=== PATIENT | female | born 1980 | race Caucasian/White ===

== ENCOUNTER 2016-09-05 12:49 | Inpatient (IN) | payer MEDICAID, OTHER ==
[~2016-09-05] VITALS: Ht 165.1 cm; Wt 80.6 kg
[~2016-09-05 12:49] MED LIST: CYCL1TAB29 PO; IBUP800T23 PO; PRED50 PO
[2016-09-05 12:50] VITALS: BP 124/60; PULSE 100; RESP 16; TEMP 98.3; O2SAT 94
[2016-09-05 13:40] VITALS: BP 121/58; PULSE 99; RESP 18; TEMP 98.1; O2SAT 96
--- NOTE | 2016-09-05 15:35 | PD ---
HPI Chief Complaint: Medical Clearance Time Seen by Provider: 15:28 Travel History International Travel<30 days: No Contact w/Intl Traveler<30days: No Traveled to known affect area: No History of Present Illness HPI This patient was examined in the presence of a female nurse. 35-year-old female presents voluntarily for evaluation of depression. For the past few months she has been feeling increasingly depressed, having difficulty with activities of daily living, easily angered. She reports that her her to come for evaluation when he said that he would leave her with the children if she did not seek help. She denies any attempts at suicide in the past but she does say that her left her with the children and she would kill herself. She denies any drug or alcohol use. Denies any medical problems. Initially she went to [facility] today however they performed a urine test and it was positive and so she was sent here because she was outside of their scope of care. She reports that she has an implanted essure device and her last menstrual. Was July 17 through the . She denies any abdominal pain or vaginal bleeding or vaginal discharge. Denies dysuria, flank pain, hematuria. She has no other complaints. [facility] Past Medical History Anxiety: Yes Depression: Yes Diminished Hearing: No Immunizations Current: Yes ?: LMP: 07/2016 Menopausal: No : 1 Para: 1 Past Surgical History Eye Surgery: Yes (1987) Thoracic Surgery: Yes (CHEST WALL) Other Surgery: Yes (pectis excavatum) Social History Alcohol Use: No Tobacco Use: Yes (09/10 PPD) Substance Use: No Allergies-Medications (Allergen,Severity, Reaction): Coded Allergies: Codeine (Verified Allergy, Severe, Hives, 09/05/16) Morphine (Verified Allergy, Severe, Anaphylaxis, 09/05/16) Reported Meds & Prescriptions Reported Meds & Active Scripts Active No Active Prescriptions or Reported Medications Review of Systems Except as stated in HPI: all other systems reviewed are Neg Physical Exam Narrative GENERAL: Well-developed well-nourished female in no acute distress SKIN: Warm and dry. HEAD: Atraumatic. Normocephalic. EYES: Pupils equal and round. No scleral icterus. No injection or drainage. ENT: No nasal bleeding or discharge. Mucous membranes pink and moist. NECK: Trachea midline. No JVD. CARDIOVASCULAR: Regular rate and rhythm. No murmur appreciated. RESPIRATORY: No accessory muscle use. Clear to auscultation. Breath sounds equal bilaterally. GASTROINTESTINAL: Abdomen soft, non-tender, nondistended. Hepatic and splenic margins not palpable. No CVA tenderness. MUSCULOSKELETAL: No obvious deformities. Normal range of motion in the upper and lower extremities. NEUROLOGICAL: Awake and alert. No obvious cranial nerve deficits. Motor grossly within normal limits. Normal speech. PSYCHIATRIC: Depressed mood. Insight and judgment appear intact. Data Data Last Documented VS Vital Signs Date Time Temp Pulse Resp B/P Pulse Ox O2 Delivery O2 Flow Rate FiO2 09/05/16 13:40 98.1 99 18 121/58 96 Room Air Orders Diet Regular Basic (09/05/16 Lunch) Complete Blood Count With Diff (09/05/16 13:43) Comprehensive Metabolic Panel (09/05/16 13:43) Urinalysis - C+S If Indicated (09/05/16 13:43) Drug Screen, Random Urine (09/05/16 13:43) Alcohol (Ethanol) (09/05/16 13:43) Beta Hcg (Quant/Titer) (09/05/16 13:43) Psych Screen (09/05/16 13:43) Diet Regular Basic (09/05/16 Dinner) Labs Laboratory Tests Test 09/05/16 09/05/16 15:36 15:40 White Blood Count 9.9 TH/MM3 Red Blood Count 4.17 MIL/MM3 Hemoglobin 12.4 GM/DL Hematocrit 37.1 % Mean Corpuscular Volume 89.1 FL Mean Corpuscular Hemoglobin 29.7 PG Mean Corpuscular Hemoglobin 33.4 % Concent Red Cell Distribution Width 13.4 % Platelet Count 296 TH/MM3 Mean Platelet Volume 7.9 FL Neutrophils (%) (Auto) 74.4 % Lymphocytes (%) (Auto) 18.8 % Monocytes (%) (Auto) 5.7 % Eosinophils (%) (Auto) 0.8 % Basophils (%) (Auto) 0.3 % Neutrophils # (Auto) 7.4 TH/MM3 Lymphocytes # (Auto) 1.9 TH/MM3 Monocytes # (Auto) 0.6 TH/MM3 Eosinophils # (Auto) 0.1 TH/MM3 Basophils # (Auto) 0.0 TH/MM3 CBC Comment DIFF FINAL Differential Comment Sodium Level 137 MEQ/L Potassium Level 4.0 MEQ/L Chloride Level 103 MEQ/L Carbon Dioxide Level 25.5 MEQ/L Anion Gap 9 MEQ/L Blood Urea Nitrogen 7 MG/DL Creatinine 0.53 MG/DL Estimat Glomerular Filtration 131 ML/MIN Rate Random Glucose 76 MG/DL Calcium Level 8.8 MG/DL Total Bilirubin 0.3 MG/DL Aspartate Amino Transf 8 U/L (AST/SGOT) Alanine Aminotransferase 12 U/L (ALT/SGPT) Alkaline Phosphatase 74 U/L Total Protein 6.8 GM/DL Albumin 2.9 GM/DL Human Chorionic Gonadotropin, 4870 MIU/ML Quant Ethyl Alcohol Level LESS THAN 3 MG/DL Urine Color YELLOW Urine Turbidity HAZY Urine pH 6.0 Urine Specific [place] 1.023 Urine Protein TRACE mg/dL Urine Glucose (UA) NEG mg/dL Urine Ketones 40 mg/dL Urine Occult Blood TRACE Urine Nitrite NEG Urine Bilirubin NEG Urine Urobilinogen 2.0 MG/DL Urine Leukocyte Esterase MOD Urine RBC 7 /hpf Urine WBC 3 /hpf Urine Squamous Epithelial 4 /hpf Cells Urine Mucus MOD /lpf Microscopic Urinalysis Comment CULT NOT INDICATED Urine Opiates Screen NEG Urine Barbiturates Screen NEG Urine Amphetamines Screen NEG Urine Benzodiazepines Screen NEG Urine Cocaine Screen NEG Urine Cannabinoids Screen NEG MDM Medical Decision Making Medical Screen Exam Complete: Yes Emergency Medical Condition: Yes Medical Record Reviewed: Yes Interpretation(s) CBC unremarkable CMP unremarkable Beta-hCG 4870 Urinalysis no bacteria Drug screen negative Alcohol negative Differential Diagnosis Major depressive disorder, depressive disorder not otherwise specified, acute psychosis, substance induced mood disorder, adjustment reaction, generalized anxiety disorder, PTSD Narrative Course 35-year-old female presents with months of increased depression. She presents voluntarily. She had a positive urine drug screen at [facility]. Last menstrual period was July 17 through the . She has no abdominal pain, vaginal bleeding to warrant an emergent pelvic ultrasound. She does have a positive quantitative beta hCG. She was informed and she is encouraged to follow-up with her [facility] to establish care. Mental health screening discussed with the patient. Psychiatric screen ordered. The patient is medically cleared for psychiatric disposition. Scripts No Active Prescriptions or Reported Meds Torin Duarte Sep 05, 2016 15:35
[2016-09-05 16:03] LABS: AUTOMATED NEUTROPHIL # 7.4 TH/MM3 (1.8-7.7); BASOPHIL % 0.3 % (0.0-2.0); EOSINOPHIL # 0.1 TH/MM3 (0-0.4); EOSINOPHIL % 0.8 % (0.0-4.0); HEMATOCRIT 37.1 % (35.0-46.0); HEMO FLAGS DIFF FINAL; LYMPH % 18.8 % (9.0-44.0); LYMPHOCYTE # 1.9 TH/MM3 (1.0-4.8); MEAN CELL VOLUME 89.1 FL (80.0-100.0); MEAN CORPUSCULAR HEMOGLOBIN 29.7 PG (27.0-34.0); MEAN CORPUSCULAR HGB CONC 33.4 % (32.0-36.0); MONO % 5.7 % (0.0-8.0); NEUT % 74.4 % (16.0-70.0); PLATELET COUNT 296 TH/MM3 (150-450); RED BLOOD COUNT 4.17 MIL/MM3 (4.00-5.30); RED CELL DISTRIBUTION WIDTH 13.4 % (11.6-17.2); WHITE BLOOD COUNT 9.9 TH/MM3 (4.0-11.0)
[2016-09-05 16:15] LABS: BLOOD, URINE TRACE (NEG); COMMENT (UR) CULT NOT INDICATED; CULTURE IF INDICATED CULT NOT INDICATED; GLUCOSE,URINE NEG (NEG); KETONE, URINE 40 mg/dL (NEG); MUCUS URINE MOD /lpf (OCC); NITRITE,URINE NEG (NEG); SQUAMOUS EPITHELIAL CELL URINE 4 /hpf (0-5); URINE COLOR YELLOW (YELLW/STRAW)
[2016-09-05 16:20] LABS: AMPHETAMINE, URINE NEG (NEG); BARBITURATES, URINE NEG (NEG); COCAINE, URINE NEG (NEG)
[2016-09-05 16:29] LABS: ANION GAP 9 MEQ/L (5-15)
[2016-09-05 16:46] LABS: ALKALINE PHOSPHATASE 74 U/L (45-117); ALT (GPT) 12 U/L (10-53); AST (GOT) 8 U/L (15-37); BETA HCG QUANT 4870 MIU/ML (0-5); BICARBONATE 25.5 MEQ/L (21.0-32.0); BLOOD UREA NITROGEN 7 MG/DL (7-18); CHLORIDE 103 MEQ/L (98-107); GLOMERULAR FILTRATION RATE 131 ML/MIN (>89); SODIUM (NA) 137 MEQ/L (136-145); TOTAL BILIRUBIN ADULT 0.3 MG/DL (0.2-1.0)
[2016-09-05 18:11] VITALS: BP 128/68; PULSE 92; RESP 18; O2SAT 97
[2016-09-05 22:28] VITALS: BP 121/62; PULSE 92; RESP 18; TEMP 97.5; O2SAT 97
[2016-09-06 02:32] VITALS: BP 103/55; PULSE 78; RESP 18; TEMP 97.1; O2SAT 99
[2016-09-06 06:00] VITALS: BP 126/58; PULSE 98; RESP 18; O2SAT 97
--- NOTE | 2016-09-06 11:07 | PD ---
History of Present Illness Chief Complaint: Medical Clearance Time Seen by Provider: 10:00 Travel History International Travel<30 Days: No Contact w/Intl Traveler<30days: No Known affected area: No Legal Status Legal Status: Voluntary History of Present Illness: History of Present Illness 35-year-old female with history of depression versus adjustment disorder w depressed features presents voluntarily for psychiatric evaluation. She is sent to [facility] from [facility] after a positive test. She reports that for the past several; months and increasing in intensity in the past 2 days she has been experiencing depressed mood, crying episodes, increased sleep , decreased appetite, inability to get up and care for her 2 small children, poor frustration tolerance with episodes of irritability, feeling like she cannot control her emotions. Recent stressors include being evicted from her home 2 days ago, dealing with her 's gambling problem and the of her father in March. As per record patient was seen here in 2009 and she reported at that time that her father had just . She reports that her brought her to [facility] for evaluation when he said that he would leave her and take her children if she did not seek help. She denies any drug or alcohol use and urine toxicology is negative. As per record review she was seen in ED for psychiatric evaluation in 2005 when she alledgedly gave custody of her 2 year old child to her mother. She was evaluated in 2009 for reports of depression after her father . She was sent to [facility] but did not follow up with care. Patient is seen in J pod. Awake, alert, tearful. speech is clear and logical. Mood depressed. No psychosis and no wendy. Denies suicidal ideation but she does say that if her leaves and takes her children she would kill herself. She endorses symptoms of depression as described previously. Patient also reports she was unaware that she was and at this time does niot feel she can take care of another child. She is considering terminating the . PFSH Past Medical History Anxiety: Yes Depression: Yes Diminished Hearing: No Immunizations Current: Yes ?: LMP: 07/2016 Menopausal: No : 3 Para: 3 Past Surgical History Eye Surgery: Yes (1987) Thoracic Surgery: Yes (CHEST WALL) Other Surgery: Yes (pectis excavatum) Psychiatric History Psychiatric History Hx Psychiatric Treatment: PATIENT REPORTS THAT SHE HAS A HISTORY OF DEPRESSION. History of Inpatient Treatment: Yes ([facility] in 2009) Guns or firearms in home: No Social History x 3 years. Currently homeless and staying with family. Has 2 children ages 2 years and 1 year. as per record has another child in custody of her mother. She does not disclose this. 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 Hx Alcohol Use: No Hx Tobacco Use: Yes (09/10 PPD) Hx Substance Use: No Substance Use Type: Alcohol, Nicotine/Cigarettes Other Substances Used: ALCOHOL SOCIALY Hx of Substance Use Treatment: No Family Psychiatric History Father w bipolar Disorder Brother with bipolar disorder Allergies-Medications (Allergen,Severity, Reaction): Coded Allergies: Codeine (Verified Allergy, Severe, Hives, 09/05/16) Morphine (Verified Allergy, Severe, Anaphylaxis, 09/05/16) Reported Meds & Prescriptions Reported Meds & Active Scripts Active No Active Prescriptions or Reported Medications Review of Systems Constitutional: COMPLAINS OF: Change in appetite, DENIES: Diaphoretic episodes , Fatigue, Fever, Weight gain, Weight loss, Chills, Dizziness, Night Sweats Endocrine: DENIES: Abnorml menstrual pattern, Heat/cold intolerance, Polydipsia , Polyuria, Polyphagia Eyes: DENIES: Blurred vision, Diplopia, Eye inflammation, Eye pain, Vision loss , Photosensitivity, Double Vision Ears, nose, mouth, throat: DENIES: Tinnitus, Hearing loss, Vertigo, Nasal discharge, Oral lesions, Throat pain, Hoarseness, Ear Pain, Running Nose, Epistaxis, Sinus Pain, Toothache, Odynophagia Respiratory: DENIES: Apneas, Cough, Snoring, Wheezing, Hemoptysis, Sputum production, Shortness of breath Cardiovascular: DENIES: Chest pain, Palpitations, Syncope, Dyspnea on Exertion , PND, Lower Extremity Edema, Orthopnea, Claudication Gastrointestinal: DENIES: Abdominal pain, Black stools, Bloody stools, Constipation, Diarrhea, Nausea, Vomiting, Difficulty Swallowing, Anorexia Genitourinary: DENIES: Abnormal vaginal bleeding, Dysmenorrhea, Dyspareunia, Sexual dysfunction, Urinary frequency, Urinary incontinence, Urgency, Hematuria , Dysuria, Nocturia, Vaginal discharge Musculoskeletal: DENIES: Joint pain, Muscle aches, Stiffness, Joint Swelling, Back pain, Neck pain Integumentary: DENIES: Abnormal pigmentation, Pruritus, Rash, Nail changes, Breast masses, Breast skin changes, Nipple discharge Hematologic/lymphatic: DENIES: Bruising, Lymphadenopathy Immunologic/allergic: DENIES: Eczema, Urticaria Neurologic: DENIES: Abnormal gait, Headache, Localized weakness, Paresthesias, Seizures, Speech Problems, Tremor, Poor Balance Psychiatric: COMPLAINS OF: Depression, Suicidal Ideation Exam Alert: Yes [place]: Person (ox4) Mood: Depressed Affect: Other (tearful) Speech: Clear, Logical Eye Contact: Normal Memory Intact: Comment (No impairment) Hallucinations: Other (negative) Delusions: No Suicidal: Ideation (reports will kill herself if her takes her children ) Homicidal: Ideation (deneis) Insight/Judgement poor. not impaired MDM Medical Decision Making Medical Record Reviewed: Yes Assessment/Plan 35 year old female under a voluntary basis with symptoms of depression and suicidal ideation. She is currently not in tx. At this time she meets criteria for inpatient psychiatric treatment for further evaluation, initiation of treatment and to maintain her safety. Admitting dx Adjustment disorder with depression versus bipolar disorder with depressed mood versus post depression, untreated. Orders Diet Regular Basic (09/05/16 Lunch) Complete Blood Count With Diff (09/05/16 13:43) Comprehensive Metabolic Panel (09/05/16 13:43) Urinalysis - C+S If Indicated (09/05/16 13:43) Drug Screen, Random Urine (09/05/16 13:43) Alcohol (Ethanol) (09/05/16 13:43) Beta Hcg (Quant/Titer) (09/05/16 13:43) Psych Screen (09/05/16 13:43) Diet Regular Basic (09/05/16 Dinner) Diet Regular Basic (09/06/16 Breakfast) Diet Regular Basic (09/06/16 Lunch) Results Vital Signs Date Time Temp Pulse Resp B/P Pulse Ox O2 Delivery O2 Flow Rate FiO2 09/06/16 06:00 98 18 126/58 97 09/06/16 02:32 97.1 78 18 103/55 99 Room Air 09/05/16 22:28 97.5 92 18 121/62 97 Room Air 09/05/16 18:11 92 18 128/68 97 Room Air 09/05/16 13:40 98.1 99 18 121/58 96 Room Air 09/05/16 12:50 98.3 100 16 124/60 94 Room Air Laboratory Tests Test 09/05/16 09/05/16 15:36 15:40 White Blood Count 9.9 Red Blood Count 4.17 Hemoglobin 12.4 Hematocrit 37.1 Mean Corpuscular Volume 89.1 Mean Corpuscular Hemoglobin 29.7 Mean Corpuscular Hemoglobin 33.4 Concent Red Cell Distribution Width 13.4 Platelet Count 296 Mean Platelet Volume 7.9 Neutrophils (%) (Auto) 74.4 Lymphocytes (%) (Auto) 18.8 Monocytes (%) (Auto) 5.7 Eosinophils (%) (Auto) 0.8 Basophils (%) (Auto) 0.3 Neutrophils # (Auto) 7.4 Lymphocytes # (Auto) 1.9 Monocytes # (Auto) 0.6 Eosinophils # (Auto) 0.1 Basophils # (Auto) 0.0 CBC Comment DIFF FINAL Differential Comment Sodium Level 137 Potassium Level 4.0 Chloride Level 103 Carbon Dioxide Level 25.5 Anion Gap 9 Blood Urea Nitrogen 7 Creatinine 0.53 Estimat Glomerular Filtration 131 Rate Random Glucose 76 Calcium Level 8.8 Total Bilirubin 0.3 Aspartate Amino Transf 8 (AST/SGOT) Alanine Aminotransferase 12 (ALT/SGPT) Alkaline Phosphatase 74 Total Protein 6.8 Albumin 2.9 Human Chorionic Gonadotropin, 4870 Quant Ethyl Alcohol Level LESS THAN 3 Urine Color YELLOW Urine Turbidity HAZY Urine pH 6.0 Urine Specific [place] 1.023 Urine Protein TRACE Urine Glucose (UA) NEG Urine Ketones 40 Urine Occult Blood TRACE Urine Nitrite NEG Urine Bilirubin NEG Urine Urobilinogen 2.0 Urine Leukocyte Esterase MOD Urine RBC 7 Urine WBC 3 Urine Squamous Epithelial 4 Cells Urine Mucus MOD Microscopic Urinalysis Comment CULT NOT INDICATED Urine Opiates Screen NEG Urine Barbiturates Screen NEG Urine Amphetamines Screen NEG Urine Benzodiazepines Screen NEG Urine Cocaine Screen NEG Urine Cannabinoids Screen NEG Diagnosis Primary Impression: Adjustment disorder Admitting Information Admitting Physician Requests: Admit (Williendo) Prescriptions No Active Prescriptions or Reported Meds Problem Qualifiers Primary Impression: Adjustment disorder Qualified Code: F43.21 - Adjustment disorder with depressed mood Monika Maria Sep 06, 2016 11:07
[2016-09-06] MEDS ORDERED: MAGNESIUM HYDROXIDE SUSP 30 ML CUP PO PRN (11:15)
[2016-09-06] MEDS ORDERED: ACETAMINOPHEN 325 MG TAB PO PRN (11:15)
[2016-09-06] MEDS ORDERED: ALUMINUM/MAGNESIUM/SIMETH 30 ML CUP PO PRN (11:15)
[2016-09-06 11:54] VITALS: BP 130/68; PULSE 78; RESP 18; O2SAT 96
[2016-09-06 11:55] VITALS: BP 130/68; PULSE 78; RESP 18; O2SAT 96
[2016-09-06 12:44] VITALS: BP 123/67; PULSE 83; RESP 18; TEMP 98.7
[2016-09-06 18:08] VITALS: BP 117/64; PULSE 90; RESP 14; TEMP 98.1; O2SAT 98
[2016-09-07 05:16] VITALS: BP 98/61; PULSE 74; RESP 18; TEMP 98; O2SAT 96
[2016-09-07 07:55] LABS: ANION GAP 10 MEQ/L (5-15); BICARBONATE 24.6 MEQ/L (21.0-32.0); BLOOD UREA NITROGEN 7 MG/DL (7-18); CHLORIDE 103 MEQ/L (98-107); GLOMERULAR FILTRATION RATE 125 ML/MIN (>89); POTASSIUM 4.6 MEQ/L (3.5-5.1); SODIUM (NA) 138 MEQ/L (136-145)
[2016-09-07 07:58] LABS: HDL CHOLESTEROL 49.3 MG/DL (40.0-60.0); LDL CHOLESTEROL 141 MG/DL (0-99)
--- NOTE | 2016-09-07 09:42 | HHI.HP ---
Provisional Diagnosis Admission Date Sep 06, 2016 at 11:14 [place] I. Major depressive disorder recurrent severe without psychosis f 33.2, , LMP 07/2016 Certification of Person's Competence To Provide Express and Informed Consent I have personally examined Bruno Wu , a person being served at [facility] on, Sep 07, 2016 09:23. Express and informed consent means consent voluntarily given in writing, by a competent person, after sufficient explanation and disclosure of the subject matter involved to enable the person to make a knowing and willful decision without any element of force, fraud, deceit, duress, or other form of constraint or coercion. This person is 18 years of age or older, is not now known to be incompetent to consent to treatment with a guardian advocate, and does not have a health care surrogate or proxy currently making medical treatment decisions. I have found this person to be one of the following: [x] Competent to provide express and informed consent, as defined above, for voluntary admission to this facility and is competent to provide express and informed consent for treatment. He/she has the consistent capacity to make well reasoned, willful, and knowing decisions concerning his or her medical or mental health treatment. The person fully and consistently understands the purpose of the admission for examination/placement and is fully capable of personally exercising all rights assured under [place] Incompetent to provide express and informed consent to voluntary admission, and this is incompetent to provide express and informed consent to treatment. The person must be transferred to involuntary status and a petition for a guardian advocate filed with the Circuit Court. [] Refusing to provide express and informed consent to voluntary admission but is competent to provide express and informed consent for treatment. The person must be discharged or transferred to involuntary status. Form shall be completed within 24 hours of a person's arrival at the receiving facility and filed in the clinical record of each person: 1. Admitted on a voluntary basis 2. Permitted to provide express and informed consent to his/her own treatment 3. Allowed to transfer from involuntary to voluntary status 4. Prior to permitting a person to consent to his or her own treatment after having been previously found incompetent to consent to treatment. History of Present Illness Capacity: Has Capacity HPI Patient is a 35-year-old white female comes to the emergency department voluntarily with 2-3 month history of increased depression, with marked tearfulness, depressed mood, productive sleep marked decreased energy. Decreased appetite, decreased concentration and attention, decreased coping skills, with some social isolation, she denies voices or visions with this, denies self-medication, is vague about suicidality relating it to the possibility of her leaving in taking her 2-year-old and 1-year-old children. Of interest the patient is also with her last menstrual period being 07/2016. There is also significant stress in the fact that she feels her is a compulsive gambler, which he denies, though he plays poker, this is led to the maven foreclosures on at least 3-4 prior homes and that she was given an eviction notice 2 days before crispness in the most recent dwelling. She has been staying with her uncle with her children until this episode and now and 2 small children are staying with 's mother She feels she is unable to carry this and is considering a therapeutic termination of the . Patient has a history of depression was hospitalized briefly in 2009 around the time of the of her biological father. She does deny any prior alcohol or drug use. Denies any prior suicide attempts. 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 She does acknowledge having a 12-year-old son is living with the maternal grandmother, she has a 2-year-old wonderful child by this gentleman who are now staying with his mother. Patient denies any physical or sexual abuse. She does acknowledge mental health problems in the family stating her father brother. At the present time patient does meet criteria for involuntary inpatient psychiatric hospitalization. I feel there is a high risk for suicidal behaviors or attempts. There needs to be significant counseling with her and with her . We will have CABLE BRAIDER consult related to the . Will start the patient on Zoloft 25 mg daily with intent to increase it after a few days if she tolerates it. Will add Atarax for anxiety. Benadryl for sleep. Will refrain from any substances of abuse. Review of Systems Constitutional: DENIES: Diaphoretic episodes, Fatigue, Fever, Weight gain, Weight loss, Chills, Dizziness, Change in appetite, Night Sweats Endocrine: DENIES: Abnorml menstrual pattern, Heat/cold intolerance, Polydipsia , Polyuria, Polyphagia Eyes: DENIES: Blurred vision, Diplopia, Eye inflammation, Eye pain, Vision loss , Photosensitivity, Double Vision Ears, nose, mouth, throat: DENIES: Tinnitus, Hearing loss, Vertigo, Nasal discharge, Oral lesions, Throat pain, Hoarseness, Ear Pain, Running Nose, Epistaxis, Sinus Pain, Toothache, Odynophagia Respiratory: DENIES: Apneas, Cough, Snoring, Wheezing, Hemoptysis, Sputum production, Shortness of breath Cardiovascular: DENIES: Chest pain, Palpitations, Syncope, Dyspnea on Exertion , PND, Lower Extremity Edema, Orthopnea, Claudication Gastrointestinal: DENIES: Abdominal pain, Black stools, Bloody stools, Constipation, Diarrhea, Nausea, Vomiting, Difficulty Swallowing, Anorexia Genitourinary: DENIES: Abnormal vaginal bleeding, Dysmenorrhea, Dyspareunia, Sexual dysfunction, Urinary frequency, Urinary incontinence, Urgency, Hematuria , Dysuria, Nocturia, Vaginal discharge Musculoskeletal: DENIES: Joint pain, Muscle aches, Stiffness, Joint Swelling, Back pain, Neck pain Integumentary: DENIES: Abnormal pigmentation, Pruritus, Rash, Nail changes, Breast masses, Breast skin changes, Nipple discharge Hematologic/lymphatic: DENIES: Bruising, Lymphadenopathy Immunologic/allergic: DENIES: Eczema, Urticaria Neurologic: DENIES: Abnormal gait, Headache, Localized weakness, Paresthesias, Seizures, Speech Problems, Tremor, Poor Balance Psychiatric: COMPLAINS OF: Depression, Suicidal Ideation (vague) Other Patient early Past Psych History Psychological trauma history Patient denies any physical or sexual abuse Violence risk - others (6 mos) Very low Violence risk - self (6 mos) Vague suicidal ideation that may be increased if leaves her and takes the 2 young children Substance Abuse History Drugs/Alcohol past 12 months Denies Past Family Social History Coded Allergies: Codeine (Verified Allergy, Severe, Hives, 09/05/16) Morphine (Verified Allergy, Severe, Anaphylaxis, 09/05/16) Past Medical History None except for pregnancies Discontinued Scripts Prednisone 50 Mg Tab50 Mg PO DAILY #3 TAB Ref 0 START 08/14/16 Prov:Mona Alicea 08/13/16 Cyclobenzaprine (Flexeril)10 Mg Tab10 Mg PO TID 10 Days Ref 0 Prov:Mona Alicea 08/13/16 Ibuprofen 800 Mg Prh370 Mg PO TID PRN (PAIN SCALE 1 TO 10) 10 Days Ref 0 Prov:Mona Alicea 08/13/16 Current Medications Medications (Trade) Dose Ordered Sig/Mindy Route Start Time Stop Time Status Last Admin (Tylenol) 650 mg Q4H PRN PO 09/06/16 11:15 (Milk Of Magnesia Liq) 30 ml DAILY PRN PO 09/06/16 11:15 (Mag-Al Plus Susp Liq) 30 ml Q6H PRN PO 09/06/16 11:15 Family History Patient's father or brother bipolar Social History Patient with second who is a compulsive gambler and infrequent marijuana user Patient's Strengths (min. 2) Patient verbal cooperative irritable access healthcare Physical Exam Patient seen screened in ED exam reviewed and agreed with vital signs blood pressure 90/61 pulse 74 respirations 18 Vital Signs Vital Signs Date Time Temp Pulse Resp B/P Pulse Ox O2 Delivery O2 Flow Rate FiO2 09/07/16 05:16 98.0 74 18 98/61 96 09/06/16 11:55 Room Air Lab Results HCG quantitative 4870 Mental Status Examination Alert oriented tearful depressed sad white female appears stated age long brown hair. Poor eye contact. Appearance Clean neatly tearful Speech: Unremarkable, Other (tearful) Orientation: x3 Memory: Unremarkable Thought Process: Logical, Organized Thought Content: Unremarkable Language Ecuad[place] Fund of Knowledge Good Hallucination Type: None Attention and Concentration: Other (fair) Suicidal Ideation: Yes (vague somewhat dependent upon situation between her and his care of 2 young children) Previous Suicide Attempts: No Homicidal Ideation: No Previous Homicide Attempts: No Insight: Fair Judgement: WNL Affect: Other (decreased range and intensity) Mood: Sad (markedly depressed and dysphoric) Motor Activity: Normal gait Assessment & Plan Problem List: (1) ICD Code: Z33.1 (2) Major depressive disorder, recurrent severe without psychotic features ICD Code: F33.2 Assessment & Plan Estimated LOS: 3-5 days patient severely depressed, vague suicidal ideation somewhat dependent upon blood sugar with in his care of the 2 small children. Was started on Zoloft 25 mg daily, will have will be consulted with us related to patient's consideration of termination of Discharge Planning To be determined Request Surrog/Guard Advoc?: No Problem Qualifiers (1) : Qualified Code: Z33.1 - , unspecified gestational age Rolo Lamar MD Sep 07, 2016 09:42
[2016-09-07] MEDS: SERTRALINE HCL 50 MG TAB PO SCH (11:57)
[2016-09-07] MEDS: MULTIVITAMIN TAB PO SCH (11:57)
[2016-09-07 17:33] LABS: HEMOGLOBIN A1a 0.9 %; HEMOGLOBIN A1b 1.4 %; HEMOGLOBIN Ao 86.8 %; HEMOGLOBIN LA1C 1.7 %; HEMOGLOBIN P3 3.2 %
[2016-09-07 19:24] VITALS: BP 110/55; PULSE 82; RESP 18; TEMP 98.1; O2SAT 99
[2016-09-08 06:06] VITALS: BP 108/55; PULSE 77; RESP 18; TEMP 97.8; O2SAT 95
[2016-09-08] MEDS: MULTIVITAMIN TAB PO SCH (09:31)
[2016-09-08] MEDS: SERTRALINE HCL 50 MG TAB PO SCH (09:32)
--- NOTE | 2016-09-08 13:51 | HHI.PYPN ---
Subjective Remarks Patient seen and examined with nursing staff. Chart reviewed. Case discussed with nursing staff. On my examination today, patient reports that she remains depressed. She says that this episode of depression was qualitatively different from previous episodes because she "felt stuck" and had trouble "dealing with the day." Sleep is okay but appetite remains poor. Denies any SI "now." Denies side effects from medications. We do discuss the reproductive risks of patient's sertraline, and the patient notes that her plan is to terminate this . Review of Systems Other No physical complaints today. Objective Alert: Yes [place]: Person (O x 3) Mood: Depressed Affect: Other (remains tearful at times) Memory Intact: Comment (intact on clinical exam) Hallucinations: Other (no AVH) Delusions: No Delusion Type: Other (no delusional material) Suicidal: Ideation (denies suicidal ideation) Homicidal: Ideation (no homicidal ideation) Insight/Judgement Fair Remarks Thought process linear. Speech within normal limits for rate, tone and volume. No motoric abnormalities noted. Labs Labs reviewed. Vitals/IOs Vital Signs Date Time Temp Pulse Resp B/P Pulse Ox O2 Delivery O2 Flow Rate FiO2 09/08/16 06:06 97.8 77 18 108/55 95 09/06/16 11:55 Room Air Assessment & Plan Problem List: (1) Major depressive disorder, recurrent severe without psychotic features ICD Code: F33.2 (2) ICD Code: Z33.1 Assessment & Plan Continue Zoloft as ordered with plans to titrate. ICE HOCKEY COACH consultation has been ordered and is pending. Continue other medications and care as ordered. Justification for Cont. Inpt. Monitoring for safety. Medication adjustments. Discharge Planning Per Dr. Lamar Request HC Surrog/Guard Advoc?: No Problem Qualifiers (1) : Qualified Code: Z33.1 - , unspecified gestational age Izaiah Candelaria MD Sep 08, 2016 13:51
[2016-09-08 18:00] VITALS: BP 105/67; PULSE 8; RESP 18; TEMP 97.7; O2SAT 96
[2016-09-09 06:04] VITALS: BP 101/57; PULSE 75; RESP 19; TEMP 97.3
[2016-09-09] MEDS: MULTIVITAMIN TAB PO SCH (08:45)
[2016-09-09] MEDS: SERTRALINE HCL 50 MG TAB PO SCH (08:45)
--- NOTE | 2016-09-09 14:07 | HHI.PYPN ---
Subjective Remarks Patient seen and examined with nursing staff. Chart reviewed. Case discussed with nursing staff who reports patient continues to have a somewhat flat affect but is cooperative and in good behavioral control. On my examination today, the patient reports that she feels about the same. Mood remains low. She says that she would like to start some sort of psychotherapeutic counseling on discharge. She denies any SI. She complains of poor sleep and we discussed sleep hygiene in some detail. Patient also has Benadryl available as needed for insomnia, and I invited her to make use of this. She denies side effects from medications. She is agreeable to titrating her Zoloft today. Review of Systems Other No reported physical complaints. Objective Alert: Yes [place]: Person (once again O x 3) Mood: Depressed Affect: Restricted Memory Intact: Comment (intact) Hallucinations: Other (none) Delusions: No Delusion Type: Other (no delusions) Suicidal: Ideation (denies SI) Homicidal: Ideation (no HI) Insight/Judgement Fair Remarks Thought process linear. Speech within normal limits. No abnormal motor movements noted. Labs Labs reviewed. No new labs. Vitals/IOs Vital Signs Date Time Temp Pulse Resp B/P Pulse Ox O2 Delivery O2 Flow Rate FiO2 09/09/16 06:04 97.3 75 19 101/57 09/08/16 18:00 96 09/06/16 11:55 Room Air Assessment & Plan Problem List: (1) Major depressive disorder, recurrent severe without psychotic features ICD Code: F33.2 (2) ICD Code: Z33.1 Assessment & Plan Titrate Zoloft to target low mood. Benadryl available as needed for sleep. Awaiting AIR ROUTE CONTROLLER consultation, and I have asked the nurse to call about this. Continue other medications and care as ordered. Justification for Cont. Inpt. Monitoring for safety. Medication adjustments and process. Discharge Planning Pending psychiatric stabilization Request HC Surrog/Guard Advoc?: No Problem Qualifiers (1) : Qualified Code: Z33.1 - , unspecified gestational age Izaiah Candelaria MD Sep 09, 2016 14:07
[2016-09-09 18:00] VITALS: BP 134/71; PULSE 80; RESP 18; TEMP 98.7; O2SAT 96
[2016-09-09] MEDS: diphenhydrAMINE HCL 50 MG CAP PO PRN (23:16)
[2016-09-10 05:49] VITALS: BP 102/49; PULSE 81; RESP 16; TEMP 97.4; O2SAT 97
[2016-09-10] MEDS: SERTRALINE HCL 50 MG TAB PO SCH (09:16)
[2016-09-10] MEDS: MULTIVITAMIN TAB PO SCH (09:16)
--- NOTE | 2016-09-10 16:09 | HHI.PYPN ---
Subjective Remarks Patient seen in her room and floor staff, patient calmer today than 3 days ago. She states she said good conversations with her . OB consultation is not yet been done. I did reconsult again today. Patient does denies suicidality at this time for now continue treatment no change await OB consultation Review of Systems Except as stated in HPI: all other systems reviewed are Neg Objective Alert: Yes [place]: Person (once again O x 3) Mood: Depressed Affect: Restricted Memory Intact: Comment (intact) Hallucinations: Other (none) Delusions: No Delusion Type: Other (no delusions) Suicidal: Ideation (denies SI) Homicidal: Ideation (no HI) Insight/Judgement Poor to fair Vitals/IOs Vital Signs Date Time Temp Pulse Resp B/P Pulse Ox O2 Delivery O2 Flow Rate FiO2 09/10/16 05:49 97.4 81 16 102/49 97 09/06/16 11:55 Room Air Assessment & Plan Problem List: (1) Major depressive disorder, recurrent severe without psychotic features ICD Code: F33.2 (2) ICD Code: Z33.1 Assessment & Plan Estimated LOS: days patient continues depressed but somewhat improved, continues to awake consult by OB Justification for Cont. Inpt. At this time patient would decompensated placed a lower level of care Discharge Planning To be determined Request HC Surrog/Guard Advoc?: No Problem Qualifiers (1) : Qualified Code: Z33.1 - , unspecified gestational age Rolo Lamar MD Sep 10, 2016 16:09
--- NOTE | 2016-09-10 16:38 | PD.CONS ---
History & Physical H&P This patient is a 35-year-old 4 para 3003 her last normal menstrual period was August 16 through the 2015 presently admitted to the psych unit with a history of depression. [employer] consult requested secondary to a positive test Patient presently has no complaints no pain no spotting no discharge odors or itching her [employer] doctor is Dr. Moya and the patient desires a termination of this it was discussed that she should have the termination as soon as possible if that is her wish, to prevent complications of a second trimester. She is allergic to codeine and morphine no major medical problems history of depression Her cycles are regular every 29 days and she bleeds for about 7 days OB history normal spontaneous vaginal delivery 3 uncomplicated Social history smokes a half pack of cigarettes per day no drugs or alcohol No previous surgery Family history is noncontributory Vital signs her blood pressures 102/49 pulse 81 respiration 16 temperature is 97.4 Physical exam is deferred to her admission Pelvic exam is deferred to ultrasound Laboratory data hemoglobin is 12.4 beta hCGs 4870, liver function studies are normal, Assessment amenorrhea with a positive test beta hCG of 4870 consistent with about 4 weeks gestation based on her dates Patient desires a termination Plan: Recommend that the patient make an appointment with her [employer] doctor Dr. Moya upon being discharged. At that time ultrasound can be done. As an ultrasound at this stage is too early to demonstrate intrauterine Her [employer] can either perform the procedure herself or refer her to someone that does terminations Recommended it be done early in the gestation Lulu Milner MD Sep 10, 2016 16:38
[2016-09-10] MEDS: hydrOXYzine HCL 50 MG TAB PO PRN (21:30)
[2016-09-10 21:31] VITALS: BP 123/72; PULSE 81; RESP 17; TEMP 97.8; O2SAT 97
[2016-09-11 06:09] VITALS: BP 106/61; PULSE 87; RESP 16; TEMP 97.7
[2016-09-11] MEDS: MULTIVITAMIN TAB PO SCH (08:18)
[2016-09-11] MEDS: SERTRALINE HCL 50 MG TAB PO SCH (08:18)
--- NOTE | 2016-09-11 08:50 | HHI.PYPN ---
Subjective Remarks Patient seen in [place] with nurse Cat, patient states she had a difficult conversation with her yesterday, there still limits of foreclosure that is happening soon, patient states she hasn't been talking with his mother possibly temporary relocation. Patient states she does not get along well with her [id number]. This conversation patient became more depressed tearful and crying. States she still is markedly depressed though she does deny suicidal intent or plan. She states she has no support group except essentially her mother who has custody of patient's 12-year-old son. Patient states neither she nor her 12-year-old son and contact with this boy's father. Patient compliant medications. At this time continue medications no change continue treatment Review of Systems Except as stated in HPI: all other systems reviewed are Neg Objective Alert: Yes [place]: Person (once again O x 3) Mood: Depressed Affect: Labile (tearful), Restricted Memory Intact: Comment (intact) Hallucinations: Other (none) Delusions: No Delusion Type: Other (no delusions) Suicidal: Ideation (denies SI) Homicidal: Ideation (no HI) Insight/Judgement Poor to fair Vitals/IOs Vital Signs Date Time Temp Pulse Resp B/P Pulse Ox O2 Delivery O2 Flow Rate FiO2 09/11/16 06:09 97.7 87 16 106/61 09/10/16 21:31 97 Assessment & Plan Problem List: (1) Major depressive disorder, recurrent severe without psychotic features ICD Code: F33.2 (2) ICD Code: Z33.1 Assessment & Plan Estimated LOS: days patient continues depressed and tearful, appears to be significant stress also with her that is multifactorial Justification for Cont. Inpt. At this time there is distinct possibility of decompensation patient was released to a lower level of care Discharge Planning To be determined Request HC Surrog/Guard Advoc?: No Problem Qualifiers (1) : Qualified Code: Z33.1 - , unspecified gestational age Rolo Lamar MD Sep 11, 2016 08:50
[2016-09-11 20:00] VITALS: BP 111/78; PULSE 75; RESP 18; TEMP 98.4
[2016-09-11] MEDS: hydrOXYzine HCL 50 MG TAB PO PRN (21:28)
[2016-09-12 05:52] VITALS: BP 114/54; PULSE 84; RESP 16; TEMP 98.4; O2SAT 98
[2016-09-12] MEDS: MULTIVITAMIN TAB PO SCH (09:17)
[2016-09-12] MEDS: SERTRALINE HCL 50 MG TAB PO SCH (09:17)
--- NOTE | 2016-09-12 10:46 | HHI.PYPN ---
Subjective Remarks Patient seen in [place] with floor staff, patient more depressed today tearful crying hopeless with vague suicidal ideation. It appears patient had a phone conversation with her . He is now staying with his mother and the 2 small children. He also told her that he is filing for divorce. It appears she is not welcome in her [id number]-[id number]-yne's house. This essentially leaves the patient homeless at this time. She did state her mother is quite supportive will be returning to town this coming Saturday 09/16 and appears to be able to help him find lodging on Sunday 09/17. With this of the patient remains quite depressed volatile some hopelessness and helplessness. I feel that she does be criteria for continued stay at this time due to the vulnerability and her depression Review of Systems Except as stated in HPI: all other systems reviewed are Neg Objective Alert: Yes [place]: Person (once again O x 3) Mood: Depressed Affect: Labile, Restricted Memory Intact: Comment (intact) Hallucinations: Other (none) Delusions: No Delusion Type: Other (no delusions) Suicidal: Ideation (vaguely acknowledges today) Homicidal: Ideation (no HI) Insight/Judgement Poor Vitals/IOs Vital Signs Date Time Temp Pulse Resp B/P Pulse Ox O2 Delivery O2 Flow Rate FiO2 09/12/16 05:52 98.4 84 16 114/54 98 Assessment & Plan Problem List: (1) Major depressive disorder, recurrent severe without psychotic features ICD Code: F33.2 (2) ICD Code: Z33.1 Assessment & Plan Estimated LOS: days patient continues depressed, with increased symptoms today tearful hopeless vague suicidal ideation. Justification for Cont. Inpt. At this time the patient is at significant risk for decompensation is discharged to a lower level of care Discharge Planning To be determined Request HC Surrog/Guard Advoc?: No Problem Qualifiers (1) : Qualified Code: Z33.1 - , unspecified gestational age Rolo Lamar MD Sep 12, 2016 10:46
[2016-09-12 18:45] VITALS: BP 121/63; PULSE 85; RESP 17; TEMP 98.8; O2SAT 98
[2016-09-12] MEDS: hydrOXYzine HCL 50 MG TAB PO PRN (21:43)
[2016-09-13 06:05] VITALS: BP 108/65; PULSE 78; RESP 16; TEMP 98.3; O2SAT 96
[2016-09-13] MEDS: SERTRALINE HCL 50 MG TAB PO SCH (09:37)
[2016-09-13] MEDS: MULTIVITAMIN TAB PO SCH (09:37)
--- NOTE | 2016-09-13 10:10 | HHI.PYPN ---
Subjective Remarks Patient seen in [place] floor staff, mood somewhat improved since yesterday affect is calm and appropriate, she is better eye contact. Patient states she did talk with her last night it appears the divorce is going through they have agreed to share custody of the children which pleases her. She is still planning on going with her mother on Saturday for now continue treatment Review of Systems Except as stated in HPI: all other systems reviewed are Neg Objective Alert: Yes [place]: Person (once again O x 3) Mood: Depressed Affect: Labile, Restricted Memory Intact: Comment (intact) Hallucinations: Other (none) Delusions: No Delusion Type: Other (no delusions) Suicidal: Ideation (vaguely acknowledges today) Homicidal: Ideation (no HI) Insight/Judgement Poor to fair Vitals/IOs Vital Signs Date Time Temp Pulse Resp B/P Pulse Ox O2 Delivery O2 Flow Rate FiO2 09/13/16 06:05 98.3 78 16 108/65 96 Assessment & Plan Problem List: (1) Major depressive disorder, recurrent severe without psychotic features ICD Code: F33.2 (2) ICD Code: Z33.1 Assessment & Plan Estimated LOS: days patient continues depressed sad [place], though slightly improved from yesterday. Compliant medications. For now continue treatment Justification for Cont. Inpt. At this time patient would decompensated if placed in the lower level of care Discharge Planning To be determined Request HC Surrog/Guard Advoc?: No Problem Qualifiers (1) : Qualified Code: Z33.1 - , unspecified gestational age Rolo Lamar MD Sep 13, 2016 10:10
[2016-09-13 19:35] VITALS: BP 131/59; PULSE 80; RESP 17; TEMP 98.3; O2SAT 97
[2016-09-13] MEDS: hydrOXYzine HCL 50 MG TAB PO PRN (21:44)
[2016-09-14 06:02] VITALS: BP 104/52; PULSE 80; RESP 16; TEMP 98; O2SAT 96
--- NOTE | 2016-09-14 09:24 | HHI.PYPN ---
Subjective Remarks Patient seen in day room with nurse Cat, chart review, patient continues depressed sad though her affect is calm somewhat. She has had no further claudication with her . Though it appears a divorce is being initiated by her . Patient's mother is on a cruise will be back Saturday, will meet with them Saturday and consider discharge at that time. Patient denies suicidality at this time Review of Systems Except as stated in HPI: all other systems reviewed are Neg Objective Alert: Yes [place]: Person (once again O x 3) Mood: Depressed Affect: Labile, Restricted Memory Intact: Comment (intact) Hallucinations: Other (none) Delusions: No Delusion Type: Other (no delusions) Suicidal: Ideation (denies today) Homicidal: Ideation (no HI) Insight/Judgement Poor Vitals/IOs Vital Signs Date Time Temp Pulse Resp B/P Pulse Ox O2 Delivery O2 Flow Rate FiO2 09/14/16 06:02 98.0 80 16 104/52 96 Assessment & Plan Problem List: (1) Major depressive disorder, recurrent severe without psychotic features ICD Code: F33.2 (2) ICD Code: Z33.1 Assessment & Plan Estimated LOS: days patient continues depressed and sad, though somewhat improved. Compliant medications. About treatment Justification for Cont. Inpt. At this time patient would significantly decompensate if placed in the lower level of care Discharge Planning To be determined Request HC Surrog/Guard Advoc?: No Problem Qualifiers (1) : Qualified Code: Z33.1 - , unspecified gestational age Rolo Lamar MD Sep 14, 2016 09:24
[2016-09-14] MEDS: SERTRALINE HCL 50 MG TAB PO SCH (09:31)
[2016-09-14] MEDS: MULTIVITAMIN TAB PO SCH (09:31)
[2016-09-14 18:50] VITALS: BP 115/65; PULSE 77; RESP 18; TEMP 98.1; O2SAT 96
[2016-09-15 05:53] VITALS: BP 104/59; PULSE 81; RESP 16; TEMP 97.9
[2016-09-15] MEDS: MULTIVITAMIN TAB PO SCH (09:23)
[2016-09-15] MEDS: SERTRALINE HCL 50 MG TAB PO SCH (09:23)
[2016-09-15 19:37] VITALS: BP 114/58; PULSE 85; RESP 16; TEMP 98.8; O2SAT 97
--- NOTE | 2016-09-15 21:20 | HHI.PYPN ---
Subjective Remarks Pt seen and discussed with staff. She reports that depression persists but is improving. No medication side effects. No behavioral problems. She denies SI/HI. Objective Alert: Yes [place]: Person (once again O x 3) Mood: Depressed Affect: Restricted Memory Intact: Comment (intact) Hallucinations: Other (none) Delusions: No Delusion Type: Other (no delusions) Suicidal: Ideation (denies today) Homicidal: Ideation (no HI) Insight/Judgement limited Vitals/IOs Vital Signs Date Time Temp Pulse Resp B/P Pulse Ox O2 Delivery O2 Flow Rate FiO2 09/15/16 19:37 98.8 85 16 114/58 97 Assessment & Plan Problem List: (1) Major depressive disorder, recurrent severe without psychotic features ICD Code: F33.2 (2) ICD Code: Z33.1 Assessment & Plan Continue current tx plan. Estimated LOS: days Justification for Cont. Inpt. monitoring medications and for safety, risk of decompensation Request HC Surrog/Guard Advoc?: No Problem Qualifiers (1) : Qualified Code: Z33.1 - , unspecified gestational age Alberta Bowser MD Sep 15, 2016 21:20
[2016-09-15] MEDS: hydrOXYzine HCL 50 MG TAB PO PRN (22:06)
[2016-09-16 05:45] VITALS: BP 100/60; PULSE 88; RESP 18; TEMP 98.4
[2016-09-16] MEDS: SERTRALINE HCL 50 MG TAB PO SCH (09:00)
[2016-09-16] MEDS: MULTIVITAMIN TAB PO SCH (09:00)
[2016-09-16] MEDS: hydrOXYzine HCL 50 MG TAB PO PRN (13:08)
--- NOTE | 2016-09-16 18:00 | HHI.PYPN ---
Subjective Remarks Pt seen and discussed with staff. Pt reports that she has been irritated by a peer who's behavior she finds annoying so she has been spending most of day in her room but did go out into milieu some today. She remains depressed but reports that she is coping better. No SI/HI. She reports sleep is good. No medication side effects. Objective Alert: Yes [place]: Person (once again O x 3) Mood: Depressed Affect: Restricted Memory Intact: Comment (intact) Hallucinations: Other (none) Delusions: No Delusion Type: Other (no delusions) Suicidal: Ideation (denies today) Homicidal: Ideation (no HI) Insight/Judgement fair Vitals/IOs Vital Signs Date Time Temp Pulse Resp B/P Pulse Ox O2 Delivery O2 Flow Rate FiO2 09/16/16 05:45 98.4 88 18 100/60 09/15/16 19:37 97 Assessment & Plan Problem List: (1) Major depressive disorder, recurrent severe without psychotic features ICD Code: F33.2 (2) ICD Code: Z33.1 Assessment & Plan Continue current tx plan. Family meeting tomorrow with treatment team. Estimated LOS: days Justification for Cont. Inpt. risk of decompensating Request HC Surrog/Guard Advoc?: No Problem Qualifiers (1) : Qualified Code: Z33.1 - , unspecified gestational age Alberta Bowser MD Sep 16, 2016 18:00
[2016-09-16 19:34] VITALS: BP 124/68; PULSE 85; RESP 18; TEMP 97.7; O2SAT 98
[2016-09-16] MEDS: diphenhydrAMINE HCL 50 MG CAP PO PRN (21:55)
[2016-09-17 05:00] VITALS: BP 105/65; PULSE 80; RESP 16; TEMP 97.6
[2016-09-17] MEDS: SERTRALINE HCL 50 MG TAB PO SCH (08:44)
[2016-09-17] MEDS: MULTIVITAMIN TAB PO SCH (08:44)
--- NOTE | 2016-09-17 12:59 | HHI.PYPN ---
Subjective Remarks Patient seen in treatment team patient's mother. Prior to patient coming in it appears mother invited patient's and [id number] to the session. Patient's [id number] appeared somewhat angry irritable coming in to the conference room. I felt this was an inappropriate venue for them to start discussing marital issues considering the patient's fragile condition. I asked the and his mother to leave the room they did leave the room albeit fairly put out upset attitude. Patient was then brought into the room and these treatment team continued with the patient and the patient's mother. Patient's mother shared with us the fact that patient's biological father was a paranoid schizophrenic. That her brother has schizoaffective disorder bipolar disorder. And that he had been a patient at this hospital also. Mother also stated that while the patient was in the [place] as a late teen young adult and station [facility] the some change in her behaviors it became apparent on returned to the [place] including marked increased paranoia and vigilance. Mother states is been episodes of this vigilance and paranoia since then. Mother also states the patient has had an episode where she misrepresented the utility bill placing it in her younger daughter's name. Patient continued quite tearful upset anxious during this entire session though she did not deny the above history. Patient's mother while raising patient's 12-year-old son is also raising her 11-year-old grandson by and mother child. Mother is doing this on her own since she has been for a number of years. At this time we need to consider perhaps a modification of her diagnosis to schizoaffective disorder bipolar type considering the history given by the mother related to paranoid behaviors and the family history. Thus we will add Abilify 10 mg in the morning , increase the Zoloft to 75 mg at bedtime. We also discussed placement. Celena the counselor is going to explore possible placement at [facility]. For now continue treatment Review of Systems ROS Limitations: Clinical Condition Except as stated in HPI: all other systems reviewed are Neg Objective Alert: Yes [place]: Person (once again O x 3), Place Mood: Anxious, Depressed, Other (quite tearful) Affect: Labile Memory Intact: Comment (intact) Hallucinations: Other (none) Delusions: No Delusion Type: Other (no delusions) Suicidal: Ideation (denies today) Homicidal: Ideation (no HI) Insight/Judgement Poor Vitals/IOs Vital Signs Date Time Temp Pulse Resp B/P Pulse Ox O2 Delivery O2 Flow Rate FiO2 09/17/16 05:00 97.6 80 16 105/65 09/16/16 19:34 98 Assessment & Plan Problem List: (1) Major depressive disorder, recurrent severe without psychotic features ICD Code: F33.2 (2) ICD Code: Z33.1 (3) Schizoaffective disorder, bipolar type ICD Code: F25.0 Assessment & Plan Estimated LOS: days patient continues depressed tearful though some paranoia signed or shortness of also some personality disorder perhaps cluster B to medication adjustments above Justification for Cont. Inpt. At this time patient was significantly decompensate if placed at a lower level of care Discharge Planning To be determined Request Surrog/Guard Advoc?: No Problem Qualifiers (1) : Qualified Code: Z33.1 - , unspecified gestational age Rolo Lamar MD Sep 17, 2016 12:59
[2016-09-17] MEDS: ARIPiprazole 10 MG TAB PO SCH (13:00)
[2016-09-17 19:33] VITALS: BP 143/84; PULSE 92; RESP 16; TEMP 97.9; O2SAT 97
[2016-09-17] MEDS: diphenhydrAMINE HCL 50 MG CAP PO PRN (21:27)
[2016-09-18 06:53] VITALS: BP 109/60; PULSE 83; RESP 16; TEMP 97.8
[2016-09-18] MEDS: MULTIVITAMIN TAB PO SCH (09:20)
[2016-09-18] MEDS: ARIPiprazole 10 MG TAB PO SCH (09:21)
[2016-09-18] MEDS: SERTRALINE HCL 50 MG TAB PO SCH (09:23)
[2016-09-18 19:35] VITALS: BP 127/64; PULSE 85; RESP 16; TEMP 98.7; O2SAT 92
[2016-09-18] MEDS: diphenhydrAMINE HCL 50 MG CAP PO PRN (21:51)
[2016-09-18] MEDS: hydrOXYzine HCL 50 MG TAB PO PRN (21:51)
[2016-09-19 06:16] VITALS: BP 117/69; PULSE 90; RESP 18; TEMP 98; O2SAT 95
[2016-09-19] MEDS: ARIPiprazole 10 MG TAB PO SCH (08:26)
[2016-09-19] MEDS: MULTIVITAMIN TAB PO SCH (08:26)
[2016-09-19] MEDS: SERTRALINE HCL 50 MG TAB PO SCH (08:26)
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
[2016-09-19 18:35] VITALS: BP 110/76; PULSE 84; RESP 18; TEMP 97.9; O2SAT 94
[2016-09-20 06:15] VITALS: BP 102/64; PULSE 79; RESP 16; TEMP 98.1
[2016-09-20] MEDS: SERTRALINE HCL 50 MG TAB PO SCH (09:23)
[2016-09-20] MEDS: ARIPiprazole 10 MG TAB PO SCH (09:23)
[2016-09-20] MEDS: MULTIVITAMIN TAB PO SCH (09:23)
--- NOTE | 2016-09-20 12:40 | HHI.PYPN ---
Subjective Remarks Patient seen in dayroom with floor staff, patient calm cooperative and pleasant with fair eye contact. Coping with the denial that project warm, it appears she has been given more information about shelters by the counselor. Patient denies suicidality today, also states that a conversation with her mother will be visiting tonight Review of Systems Except as stated in HPI: all other systems reviewed are Neg Objective Alert: Yes [place]: Person (once again O x 3), Place Mood: Anxious, Depressed, Other (quite tearful) Affect: Labile Memory Intact: Comment (intact) Hallucinations: Other (none) Delusions: No Delusion Type: Other (no delusions) Suicidal: Ideation (denies today) Homicidal: Ideation (no HI) Insight/Judgement Poor to fair Vitals/IOs Vital Signs Date Time Temp Pulse Resp B/P Pulse Ox O2 Delivery O2 Flow Rate FiO2 09/20/16 06:15 98.1 79 16 102/64 09/19/16 18:35 94 Assessment & Plan Problem List: (1) Major depressive disorder, recurrent severe without psychotic features ICD Code: F33.2 (2) ICD Code: Z33.1 (3) Schizoaffective disorder, bipolar type ICD Code: F25.0 Assessment & Plan Estimated LOS: days patient continues somewhat depressed, though he showing increase affect and focusing on exploring placement options Justification for Cont. Inpt. At this time patient would decompensated placed a lower level of care Discharge Planning To be determined Request HC Surrog/Guard Advoc?: No Problem Qualifiers (1) : Qualified Code: Z33.1 - , unspecified gestational age Rolo Lamar MD Sep 20, 2016 12:40
[2016-09-20 19:12] VITALS: BP 104/54; PULSE 78; RESP 18; TEMP 98.2; O2SAT 97
[2016-09-20] MEDS: hydrOXYzine HCL 50 MG TAB PO PRN (21:28)
[2016-09-20] MEDS: diphenhydrAMINE HCL 50 MG CAP PO PRN (21:28)
[2016-09-21 06:15] VITALS: BP 101/54; PULSE 74; RESP 18; TEMP 98.5
[2016-09-21] MEDS: MULTIVITAMIN TAB PO SCH (08:56)
[2016-09-21] MEDS: ARIPiprazole 10 MG TAB PO SCH (08:56)
[2016-09-21] MEDS: SERTRALINE HCL 50 MG TAB PO SCH (08:56)
--- NOTE | 2016-09-21 13:39 | HHI.PYPN ---
Subjective Remarks Patient seen in [place] with nurse Adrian and medical student Daisy. Chart reviewed. Mood remains calm pleasant, is more social with both male and female patients on the unit. States she did talk to her mother that is going well. States she also called her but just to get more clothing. Patient denies suicidality today also states that she continues to explore assisted placements with counselor. I did order the appropriate pelvic ultrasound and repeat UCG labs for today For now continue treatment Review of Systems Except as stated in HPI: all other systems reviewed are Neg Objective Alert: Yes [place]: Person (once again O x 3), Place Mood: Anxious, Depressed, Other (quite tearful) Affect: Labile Memory Intact: Comment (intact) Hallucinations: Other (none) Delusions: No Delusion Type: Other (no delusions) Suicidal: Ideation (denies today) Homicidal: Ideation (no HI) Insight/Judgement Poor Vitals/IOs Vital Signs Date Time Temp Pulse Resp B/P Pulse Ox O2 Delivery O2 Flow Rate FiO2 09/21/16 06:15 98.5 74 18 101/54 09/20/16 19:12 97 Intake and Output 09/20/16 09/20/16 09/21/16 08:00 16:00 00:00 Intake Total 100 ml Balance 100 ml Assessment & Plan Problem List: (1) Major depressive disorder, recurrent severe without psychotic features ICD Code: F33.2 (2) ICD Code: Z33.1 (3) Schizoaffective disorder, bipolar type ICD Code: F25.0 Assessment & Plan Estimated LOS: days patient continues depressed and somewhat irritable, does denies suicidality at this time.. Justification for Cont. Inpt. At this time patient would decompensate if placed in a lower level of care Discharge Planning To be determined Request HC Surrog/Guard Advoc?: No Problem Qualifiers (1) : Qualified Code: Z33.1 - , unspecified gestational age Rolo Lamar MD Sep 21, 2016 13:39
[2016-09-21 15:18] LABS: BETA HCG QUANT 5022 MIU/ML (0-5)
[2016-09-21 19:37] VITALS: BP 134/61; PULSE 94; RESP 17; TEMP 98; O2SAT 100
[2016-09-22 05:18] VITALS: BP 106/58; PULSE 79; RESP 16; TEMP 97.6
[2016-09-22] MEDS: ARIPiprazole 10 MG TAB PO SCH (09:12)
[2016-09-22] MEDS: SERTRALINE HCL 50 MG TAB PO SCH (09:12)
[2016-09-22] MEDS: MULTIVITAMIN TAB PO SCH (09:12)
--- NOTE | 2016-09-22 15:50 | HHI.PYPN ---
Subjective Remarks Patient was seen and case discussed with nursing. Patient is bright and cheerful during the interview. Looking forward to discharge next week. She denies suicidal ideations thought or plan. Compliant with medications Objective Alert: Yes [place]: Person (once again O x 3), Place Mood: Anxious, Depressed, Other (quite tearful) Affect: Labile Memory Intact: Comment (intact) Hallucinations: Other (none) Delusions: No Delusion Type: Other (no delusions) Suicidal: Ideation (denies today) Homicidal: Ideation (no HI) Insight/Judgement Poor Vitals/IOs Vital Signs Date Time Temp Pulse Resp B/P Pulse Ox O2 Delivery O2 Flow Rate FiO2 09/22/16 05:18 97.6 79 16 106/58 09/21/16 19:37 100 Assessment & Plan Problem List: (1) Major depressive disorder, recurrent severe without psychotic features ICD Code: F33.2 (2) ICD Code: Z33.1 (3) Schizoaffective disorder, bipolar type ICD Code: F25.0 Assessment & Plan Continue current treatment plan Justification for Cont. Inpt. Patient would decompensate in a less restrictive setting Request HC Surrog/Guard Advoc?: No Problem Qualifiers (1) : Qualified Code: Z33.1 - , unspecified gestational age Tyrone Mckay DO Sep 22, 2016 15:50
[2016-09-22 19:02] VITALS: BP 119/56; PULSE 94; RESP 16; O2SAT 96
[2016-09-22] MEDS: hydrOXYzine HCL 50 MG TAB PO PRN (21:45)
[2016-09-22] MEDS: diphenhydrAMINE HCL 50 MG CAP PO PRN (21:45)
[2016-09-23 05:33] VITALS: BP 122/64; PULSE 72; RESP 17; TEMP 97.3; O2SAT 99
[2016-09-23] MEDS: ARIPiprazole 10 MG TAB PO SCH (08:42)
[2016-09-23] MEDS: MULTIVITAMIN TAB PO SCH (08:42)
[2016-09-23] MEDS: SERTRALINE HCL 50 MG TAB PO SCH (08:42)
--- NOTE | 2016-09-23 15:10 | HHI.PYPN ---
Subjective Remarks Patient was seen and case discussed with nursing. Patient is pleasant and cooperative with exam. Does not report any new stressors. Looking forward to placement. Mood is "good." Denies suicidal ideations thought content or plan. Behaving well on the unit Objective Alert: Yes [place]: Person (once again O x 3), Place Mood: Anxious, Depressed, Other (quite tearful) Affect: Labile Memory Intact: Comment (intact) Hallucinations: Other (none) Delusions: No Delusion Type: Other (no delusions) Suicidal: Ideation (denies today) Homicidal: Ideation (no HI) Insight/Judgement Fair Vitals/IOs Vital Signs Date Time Temp Pulse Resp B/P Pulse Ox O2 Delivery O2 Flow Rate FiO2 09/23/16 05:33 97.3 72 17 122/64 99 Assessment & Plan Problem List: (1) Major depressive disorder, recurrent severe without psychotic features ICD Code: F33.2 (2) ICD Code: Z33.1 (3) Schizoaffective disorder, bipolar type ICD Code: F25.0 Assessment & Plan Continue current treatment plan Justification for Cont. Inpt. Patient would decompensate in a less restrictive setting Request HC Surrog/Guard Advoc?: No Problem Qualifiers (1) : Qualified Code: Z33.1 - , unspecified gestational age Tyrone Mckay DO Sep 23, 2016 15:10
[2016-09-23 18:44] VITALS: BP 115/60; PULSE 78; RESP 18; O2SAT 95
[2016-09-23] MEDS: diphenhydrAMINE HCL 50 MG CAP PO PRN (21:34)
[2016-09-23] MEDS: hydrOXYzine HCL 50 MG TAB PO PRN (21:34)
[2016-09-24 05:46] VITALS: BP 105/59; PULSE 78; RESP 17; TEMP 98; O2SAT 96
[2016-09-24] MEDS: MULTIVITAMIN TAB PO SCH (08:41)
[2016-09-24] MEDS: ARIPiprazole 10 MG TAB PO SCH (08:41)
[2016-09-24] MEDS: SERTRALINE HCL 50 MG TAB PO SCH (08:42)
--- NOTE | 2016-09-24 16:14 | HHI.PYPN ---
Subjective Remarks Patient seen with treatment team, medical student Daisy, and patient's mother. Patient stating that she has been told that she is 22 weeks which is measured tearful and confused about future of the . Continue to work with problems related to finding an appropriate placement for this lady. She remains depressed though perhaps somewhat manipulative with all these issues. She is showing little insight into her behaviors that led to this situation. For now although continue treatment we need to find out if she did have an ultrasound with results of it is Review of Systems Except as stated in HPI: all other systems reviewed are Neg Objective Alert: Yes [place]: Person (once again O x 3), Place Mood: Anxious, Depressed, Other (quite tearful) Affect: Labile Memory Intact: Comment (intact) Hallucinations: Other (none) Delusions: No Delusion Type: Other (no delusions) Suicidal: Ideation (denies today) Homicidal: Ideation (no HI) Insight/Judgement Poor Vitals/IOs Vital Signs Date Time Temp Pulse Resp B/P Pulse Ox O2 Delivery O2 Flow Rate FiO2 09/24/16 05:46 98.0 78 17 105/59 96 Assessment & Plan Problem List: (1) Major depressive disorder, recurrent severe without psychotic features ICD Code: F33.2 (2) ICD Code: Z33.1 (3) Schizoaffective disorder, bipolar type ICD Code: F25.0 Assessment & Plan Estimated LOS: days patient remains depressed tearful, though compliant medications. We need to verify if an ultrasound was done and its results. Justification for Cont. Inpt. At this time patient would significantly decompensate if placed in a lower level of care Discharge Planning To be determined Request HC Surrog/Guard Advoc?: No Problem Qualifiers (1) : Qualified Code: Z33.1 - , unspecified gestational age Rolo Lamar MD Sep 24, 2016 16:14
[2016-09-24 19:09] VITALS: BP 116/64; PULSE 78; RESP 17; TEMP 97.5; O2SAT 97
[2016-09-24] MEDS: hydrOXYzine HCL 50 MG TAB PO PRN (21:00)
[2016-09-24] MEDS: ACETAMINOPHEN 325 MG TAB PO PRN (21:00)
[2016-09-24] MEDS: diphenhydrAMINE HCL 50 MG CAP PO PRN (21:00)
[2016-09-25 05:59] VITALS: BP 105/59; PULSE 78; RESP 16; TEMP 97.9
[2016-09-25] MEDS: MULTIVITAMIN TAB PO SCH (09:45)
[2016-09-25] MEDS: ARIPiprazole 10 MG TAB PO SCH (09:45)
[2016-09-25] MEDS: SERTRALINE HCL 50 MG TAB PO SCH (09:46)
[2016-09-25 12:07] LABS: RUBELLA IGG ANTIBODY 101.6 IU/mL (10.0-500.0); RUBELLA STATUS IMMUNE (IMMUNE)
--- NOTE | 2016-09-25 13:05 | PD.CONS ---
HPI Chief Complaint Recent diagnosis of ; No ultrasound to date Date Seen: Sep 25, 2016 Travel History International Travel<30 Days: No Contact w/Intl Traveler<30Days: No Known Affected Area: No History of Present Illness HPI The patient is a 35yo at 23 3/7 weeks as dated by an ultrasound today. The EDC is 01/19/17. The patient is currently admitted for management of depression and bipolar disorder. She has no stated problems with the so far. There is appropriate movement; no ROM, no bleeding History Past Medical History Narrative Medical Depression/Bipolar disorder Anxiety Tobacco use Obstetric History Obstetric History 2004: : 11# 2oz uncomplicated 2014: : 10# uncomplicated 2015: : 9# uncomplicated Past Surgical History Narrative Surgical 1989: Corrective chest surgery for pectus excavatum 2012: Wrist plate Social History Narrative Social History Tobacco use: 1/2 ppd; has not smoked since she was hospitalized and reports that she will remain off tobacco for alejandra duration of . Allergies-Medications (Allergen,Severity, Reaction): Coded Allergies: Codeine (Verified Allergy, Severe, Hives, 09/05/16) Morphine (Verified Allergy, Severe, Anaphylaxis, 09/05/16) Home Meds No Active Prescriptions or Reported Meds Narrative Medication Current medications: - Abilify - Zoloft - Atarax Review of Systems Except as stated in HPI: all other systems reviewed are Neg Physical Exam Narrative GENERAL: Well-nourished, well-developed patient. SKIN: Warm and dry. HEAD: Normocephalic and atraumatic. CV: RRR Lungs: CTA ABDOMEN: Gravid to [24] weeks size NEUROLOGICAL: Awake and alert. Motor and sensory grossly within normal limits. Five out of 5 muscle strength in all muscle groups. Normal speech. Data Data Labs Laboratory Tests Test 09/25/16 11:11 Thyroid Stimulating Hormone 1.480 3rd Gen Rubella Immunity Screen IMMUNE Rubella Antibody, Quantitative 101.6 Blood Type A POSITIVE [facility] Medical Record Reviewed: Yes Interpretation(s) 1. IUP at 23 3/7 weeks 2 Advanced maternal age - Genetic screening and diagnosis options were reviewed. These included discussion of cell free DNA screening and amniocentesis for diagnosis. Amniocentesis has a 1/300 risk of ruptured membranes and delivery; therefore the patient has declined. She elected to have the cell-free DNA results. Blood was drawn for this test today and results will be available within 7-10 days. 3. Depression/Bipolar - This is improving per the patient and medical record. She is on Zoloft and Abilify. - Zoloft has been used for a number of years without evidence of complication during . Abilify is a newer medication with no evidence of teratogenesis. There is caution for both medications during the 3rd trimester, primarily because of a risk of withdrawal syndrome. However , the risks are clearly outweighed by the benefits for Ms. Wu. She expresses understanding. 4. h/o macrosomia - She has a history of macrosomic infants, although she reports normal glucola screening during each past . We discussed the need to have diabetes screening this , but anticipate another LGA infant 5. Tobacco use; currently stopped - I've encouraged her to continue without smoking this ; Cessation would reduce the risk of stillbirth, SGA, and abruption. Plan 1. labs, if not completed already 2. Glucola screening within the next 2-3 weeks. 3. Cell free DNA screen - completed today. 4. Begin vitamin daily. 5. Establish Obstetrical care She may followup with Maternal Medicine as clinically indicated. Thank you for involving us with the care of your obstetrical patient. Please let me know if you have additional questions. Total time: 40 min with > 50% of the time spent in counseling. Admitting diagnosis: Adjustmetn Disorder w depression, R/O Bipolar Disorder Scripts No Active Prescriptions or Reported Meds Nara Hensley MD Sep 25, 2016 13:05
--- NOTE | 2016-09-25 14:59 | HHI.PYPN ---
Subjective Remarks Patient seen in [place] with floor staff, patient calm cooperative did speak with Dr. Cook today. Is no aware of her gestational age that it is a male fetus , it appears she now wishes to continue the and deliver the child. Patient denies suicidality today blood talking about placement issues becomes more dysphoric and sad. Need to work with the OB services with attempt to find an appropriate placement for this lady Review of Systems Except as stated in HPI: all other systems reviewed are Neg Objective Alert: Yes [place]: Person (once again O x 3), Place Mood: Anxious, Depressed, Other (quite tearful) Affect: Labile Memory Intact: Comment (intact) Hallucinations: Other (none) Delusions: No Delusion Type: Other (no delusions) Suicidal: Ideation (denies today) Homicidal: Ideation (no HI) Insight/Judgement Poor Labs Test 09/25/16 11:11 25-Hydroxy Vitamin D Total 15.2 ng/ML Thyroid Stimulating Hormone 1.480 uIU/ML 3rd Gen Hepatitis A IgM Antibody NEGATIVE Hepatitis B Surface Antigen NEGATIVE Hepatitis B Core IgM Antibody NEGATIVE Hepatitis C Antibody NEGATIVE HIV (1&2) Antibody NEGATIVE Rubella Immunity Screen IMMUNE Rubella Antibody, Quantitative 101.6 IU/mL Blood Type A POSITIVE Antibody Screen NEGATIVE Vitals/IOs Vital Signs Date Time Temp Pulse Resp B/P Pulse Ox O2 Delivery O2 Flow Rate FiO2 09/25/16 05:59 97.9 78 16 105/59 09/24/16 19:09 97 Assessment & Plan Problem List: (1) Major depressive disorder, recurrent severe without psychotic features ICD Code: F33.2 (2) ICD Code: Z33.1 (3) Schizoaffective disorder, bipolar type ICD Code: F25.0 Assessment & Plan Estimated LOS: days patient continues depressed though is starting to process appropriately the course of action she needs to take with her and placement issues. Justification for Cont. Inpt. At this time the patient will decompensate placed in a lower level of care Discharge Planning To be determined Request HC Surrog/Guard Advoc?: No Problem Qualifiers (1) : Qualified Code: Z33.1 - , unspecified gestational age Rolo Lamar MD Sep 25, 2016 14:59
[2016-09-25 16:15] LABS: BACTERIA, URINE RARE /hpf; BLOOD, URINE NEG (NEG); COMMENT (UR) CULT NOT INDICATED; CULTURE IF INDICATED CULT NOT INDICATED; GLUCOSE,URINE NEG (NEG); KETONE, URINE NEG (NEG); MUCUS URINE FEW /lpf (OCC); NITRITE,URINE NEG (NEG); SQUAMOUS EPITHELIAL CELL URINE 4 /hpf (0-5); URINE COLOR YELLOW (YELLW/STRAW)
[2016-09-25 20:00] VITALS: BP 115/56; PULSE 86; RESP 18; TEMP 97.2
[2016-09-25] MEDS: hydrOXYzine HCL 50 MG TAB PO PRN (21:15)
[2016-09-25] MEDS: diphenhydrAMINE HCL 50 MG CAP PO PRN (21:15)
[2016-09-26 06:02] VITALS: BP 109/59; PULSE 87; RESP 18; TEMP 98.4; O2SAT 96
--- NOTE | 2016-09-26 07:45 | PD.CONS ---
HPI Chief Complaint third trimester ongoing treatment for BPD/MDD and borderline personality disorder prior obstetrical patient of [facility] Date Seen: Sep 25, 2016 Travel History International Travel<30 Days: No Contact w/Intl Traveler<30Days: No Known Affected Area: No History of Present Illness HPI 35 yo mwf who had not been aware of or sought care prior to hospitalization at [place] for her issues of depression. She was previously a patient at [facility] with her first child and we were asked to see her. She is about 23 weeks by femur length performed by prosthetic technician and needs an obstetrical sonogram at [facility]. She reports no bleeding, leaking, contractions. She does not good movement. Her prior children were term SVDs. We delivered her first child. She denies any illicit drug use , alcohol. She does smoke. She is having significant marital issues. Has had suicidal thoughts without ideations but reports none at this time. Her described social situation is very stressful. Family recently evicted. gambles. She is not able to care for self or children at the time of evaluation and admission. She reported Dr. Moya as her service desk associate to Dr. Abad and apparently had expressed desire to have termination. She is beyond the legal Allergies-Medications (Allergen,Severity, Reaction): Coded Allergies: Codeine (Verified Allergy, Severe, Hives, 09/05/16) Morphine (Verified Allergy, Severe, Anaphylaxis, 09/05/16) Home Meds No Active Prescriptions or Reported Meds Physical Exam Narrative GENERAL: Well-nourished, well-developed patient. SKIN: Warm and dry. HEAD: Normocephalic and atraumatic. EYES: No scleral icterus. No injection or drainage. ENT: No nasal drainage noted. Mucous membranes pink. Airway patent. NECK: Supple, trachea midline. No JVD. CARDIOVASCULAR: Regular rate and rhythm without murmurs, gallops, or rubs. RESPIRATORY: Breath sounds equal bilaterally. No accessory muscle use. BREASTS: Bilateral exam showed no masses , no retractions, no nipple discharge. ABDOMEN/GI: Abdomen soft, non-tender, bowel sounds present, no rebound, no guarding Gravid to [-] weeks size Fundal Height: [-] GENITOURINARY: External Genitalia: intact and normal in appearance BUS glands: [-] Cervix: [-] Dilatation: [-] Effacement: [-] Station: [-] Presentation: [-] Membranes: [intact or ruptured] Uterine Contractions: [-] FHT's: Category: [-] Baseline: [-] Reactive: [-] Variability: [-] Decels: [-] EXTREMITIES: No cyanosis or edema. BACK: Nontender without obvious deformity. No CVA tenderness. NEUROLOGICAL: Awake and alert. Motor and sensory grossly within normal limits. Five out of 5 muscle strength in all muscle groups. Normal speech. Data Data Orders Us Ob Pelvis >14 Wks Fetus (09/25/16 ) (Hub Use Only)Inp Phy Cons/Ref (09/25/16 08:34) ^ Other Nursing Orders (09/25/16 08:36) ^ Other Nursing Orders (09/25/16 08:36) Consult Perinatology (09/25/16 ) Thyroid Stimulating Hormone (09/25/16 09:05) Rapid Plasmin Reagin Screen (09/25/16 09:05) Hepatitis Profile (09/25/16 09:05) Hiv Antibody Screen (09/25/16 09:05) Varicella Zoster Igg & Igm (09/25/16 09:05) Rubella Immune Status (09/25/16 09:05) Vitamin D, 25-Hydroxy (09/25/16 09:05) Urinalysis - C+S If Indicated (09/25/16 09:05) Specimen To Be Collected PRN (09/25/16 09:05) Urine Culture (09/25/16 09:05) Specimen To Be Collected PRN (09/25/16 09:05) Type And Screen (09/25/16 09:05) ^ Other Nursing Orders (09/25/16 09:05) ^ Other Nursing Orders (09/25/16 09:31) Labs Laboratory Tests Test 09/25/16 09/25/16 11:11 15:00 25-Hydroxy Vitamin D Total 15.2 Thyroid Stimulating Hormone 1.480 3rd Gen Hepatitis A IgM Antibody NEGATIVE Hepatitis B Surface Antigen NEGATIVE Hepatitis B Core IgM Antibody NEGATIVE Hepatitis C Antibody NEGATIVE HIV (1&2) Antibody NEGATIVE Rubella Immunity Screen IMMUNE Rubella Antibody, Quantitative 101.6 Blood Type A POSITIVE Antibody Screen NEGATIVE Urine Color YELLOW Urine Turbidity CLEAR Urine pH 6.0 Urine Specific [place] 1.017 Urine Protein NEG Urine Glucose (UA) NEG Urine Ketones NEG Urine Occult Blood NEG Urine Nitrite NEG Urine Bilirubin NEG Urine Urobilinogen LESS THAN 2.0 Urine Leukocyte Esterase MOD Urine RBC 1 Urine WBC 3 Urine Squamous Epithelial 4 Cells Urine Bacteria RARE Urine Mucus FEW Microscopic Urinalysis Comment CULT NOT INDICATED Date/Time Procedure Status Source Growth 09/25/16 15:00 Urine Culture Received Urine Catheterized Urine Pending MDM Admitting diagnosis: Adjustmetn Disorder w depression, R/O Bipolar Disorder Scripts No Active Prescriptions or Reported Meds Tanvi Cook MD Sep 26, 2016 07:45
[2016-09-26] MEDS: ARIPiprazole 10 MG TAB PO SCH (09:31)
[2016-09-26] MEDS: SERTRALINE HCL 50 MG TAB PO SCH (09:31)
[2016-09-26] MEDS: MULTIVITAMIN TAB PO SCH (09:31)
--- NOTE | 2016-09-26 12:21 | HHI.PYPN ---
Subjective Remarks Patient seen in [place] nurse Shilpa, chart review, pelvic ultrasound and Dr. Cook's consultation note noted and appreciated and agreed with. Patient calm cooperative today good affect and good eye contact and good smile. States continuing good conversations with her mother, no contact with her . She is excited about this since that [place] her will be offering also. She does denies suicidality at this time denies voices or visions at this time Review of Systems Except as stated in HPI: all other systems reviewed are Neg Objective Alert: Yes [place]: Person (once again O x 3), Place Mood: Anxious, Depressed, Other (quite tearful) Affect: Labile Memory Intact: Comment (intact) Hallucinations: Other (none) Delusions: No Delusion Type: Other (no delusions) Suicidal: Ideation (denies today) Homicidal: Ideation (no HI) Insight/Judgement Poor to fair Labs Test 09/25/16 15:00 Urine Color YELLOW Urine Turbidity CLEAR Urine pH 6.0 Urine Specific [place] 1.017 Urine Protein NEG mg/dL Urine Glucose (UA) NEG mg/dL Urine Ketones NEG mg/dL Urine Occult Blood NEG Urine Nitrite NEG Urine Bilirubin NEG Urine Urobilinogen LESS THAN 2.0 MG/DL Urine Leukocyte Esterase MOD Urine RBC 1 /hpf Urine WBC 3 /hpf Urine Squamous Epithelial 4 /hpf Cells Urine Bacteria RARE /hpf Urine Mucus FEW /lpf Microscopic Urinalysis Comment CULT NOT INDICATED Date/Time Procedure Status Source Growth 09/25/16 15:00 Urine Culture Received Urine Catheterized Urine Pending Vitals/IOs Vital Signs Date Time Temp Pulse Resp B/P Pulse Ox O2 Delivery O2 Flow Rate FiO2 09/26/16 06:02 98.4 87 18 109/59 96 Assessment & Plan Problem List: (1) Major depressive disorder, recurrent severe without psychotic features ICD Code: F33.2 (2) ICD Code: Z33.1 (3) Schizoaffective disorder, bipolar type ICD Code: F25.0 Assessment & Plan Estimated LOS: days patient continues depressed but improving, showing improved affect and eye contact. Also concern about relationship between herself for mother her and her children Justification for Cont. Inpt. At this time patient would decompensate if placed in a lower level of care Discharge Planning To be determined Request HC Surrog/Guard Advoc?: No Problem Qualifiers (1) : Qualified Code: Z33.1 - , unspecified gestational age Rolo Lamar MD Sep 26, 2016 12:21
[2016-09-26 14:47] LABS: RAPID PLASMA REAGIN SCREEN NON-REACTIVE (NON-REACTVE)
[2016-09-26 18:00] VITALS: BP 118/60; PULSE 78; RESP 18; TEMP 98.3; O2SAT 99
[2016-09-26 20:27] VITALS: BP 118/60; PULSE 78; RESP 18
[2016-09-27 06:21] VITALS: BP 110/57; PULSE 80; RESP 16; TEMP 97.7
[2016-09-27] MEDS: SERTRALINE HCL 50 MG TAB PO SCH (09:00)
[2016-09-27] MEDS: MULTIVIT/MIN/PREN/FOL AC/IRON PRENATAL TAB PO SCH (09:32)
[2016-09-27] MEDS: ARIPiprazole 10 MG TAB PO SCH (09:32)
--- NOTE | 2016-09-27 14:39 | HHI.PYPN ---
Subjective Remarks Patient seen in [place] with medical student Daisy, chart reviewed, patient continues to do well here though she continues with a somewhat decreased range intensity of her affect and a sad face. She does denies suicidality homicidality voices or visions. Continues to along well with her mother, has had no contact with her will 's family. She states she has not heard any further word from Dr. Cook or from the counselor now continue treatment Review of Systems Except as stated in HPI: all other systems reviewed are Neg Objective Alert: Yes [place]: Person (once again O x 3), Place Mood: Anxious, Depressed, Other (quite tearful) Affect: Labile Memory Intact: Comment (intact) Hallucinations: Other (none) Delusions: No Delusion Type: Other (no delusions) Suicidal: Ideation (denies today) Homicidal: Ideation (no HI) Insight/Judgement Poor Labs Date/Time Procedure Status Source Growth 09/25/16 15:00 Urine Culture - Final Complete Urine Catheterized Urine 50-100,000 CFU/ML MIXED GRAM POSITIVE... Vitals/IOs Vital Signs Date Time Temp Pulse Resp B/P Pulse Ox O2 Delivery O2 Flow Rate FiO2 09/27/16 06:21 97.7 80 16 110/57 09/26/16 18:00 99 Assessment & Plan Problem List: (1) Major depressive disorder, recurrent severe without psychotic features ICD Code: F33.2 (2) ICD Code: Z33.1 (3) Schizoaffective disorder, bipolar type ICD Code: F25.0 Assessment & Plan Estimated LOS: days patient remains depressed though without denying suicidality, compliant medications, continue to work on placement issues Justification for Cont. Inpt. At this time patient would significantly decompensated if place to the lower level of care Discharge Planning To be determined Request HC Surrog/Guard Advoc?: No Problem Qualifiers (1) : Qualified Code: Z33.1 - , unspecified gestational age Rolo Lamar MD Sep 27, 2016 14:39
[2016-09-27 18:00] VITALS: BP 115/70; PULSE 112; RESP 18; TEMP 97.3; O2SAT 97
[2016-09-27] MEDS: hydrOXYzine HCL 50 MG TAB PO PRN (21:49)
[2016-09-27] MEDS: ACETAMINOPHEN 325 MG TAB PO PRN (21:49)
[2016-09-27] MEDS: diphenhydrAMINE HCL 50 MG CAP PO PRN (21:49)
[2016-09-28 05:59] VITALS: BP 97/58; PULSE 80; RESP 18; TEMP 98.1
[2016-09-28] MEDS: ARIPiprazole 10 MG TAB PO SCH (09:23)
[2016-09-28] MEDS: SERTRALINE HCL 50 MG TAB PO SCH (09:23)
[2016-09-28] MEDS: MULTIVIT/MIN/PREN/FOL AC/IRON PRENATAL TAB PO SCH (09:23)
--- NOTE | 2016-09-28 14:25 | HHI.PYPN ---
Subjective Remarks Patient seen on unit with floor staff have a patient mood remained stable her affect shows good range intensity, though the remain some sadness. However she is coping with issues related to possible placements and appears to be working well with the counselor also making independent phone calls. Patient does denies suicidality at this time. But also understands the need for a structured placement to aid in her remaining stable and not relapsing in the community Review of Systems Except as stated in HPI: all other systems reviewed are Neg Objective Alert: Yes [place]: Person (once again O x 3), Place Mood: Anxious, Depressed, Other (quite tearful) Affect: Labile Memory Intact: Comment (intact) Hallucinations: Other (none) Delusions: No Delusion Type: Other (no delusions) Suicidal: Ideation (denies today) Homicidal: Ideation (no HI) Insight/Judgement Poor to fair Labs Date/Time Procedure Status Source Growth 09/25/16 15:00 Urine Culture - Final Complete Urine Catheterized Urine 50-100,000 CFU/ML MIXED GRAM POSITIVE... Vitals/IOs Vital Signs Date Time Temp Pulse Resp B/P Pulse Ox O2 Delivery O2 Flow Rate FiO2 09/28/16 05:59 98.1 80 18 97/58 09/27/16 18:00 97 Intake and Output 09/27/16 09/27/16 09/28/16 08:00 16:00 00:00 Intake Total 360 ml Balance 360 ml Assessment & Plan Problem List: (1) Major depressive disorder, recurrent severe without psychotic features ICD Code: F33.2 (2) ICD Code: Z33.1 (3) Schizoaffective disorder, bipolar type ICD Code: F25.0 Assessment & Plan Estimated LOS: days patient continues depressed but improving, showing some insight and processing of her issues. Is cooperative and working with counselor. Justification for Cont. Inpt. At this time patient will decompensate if placed in a lower level of care Discharge Planning To be determined Request HC Surrog/Guard Advoc?: No Problem Qualifiers (1) : Qualified Code: Z33.1 - , unspecified gestational age Rolo Lamar MD Sep 28, 2016 14:25
[2016-09-28 18:50] VITALS: BP 119/61; PULSE 115; RESP 18; O2SAT 94
[2016-09-28] MEDS: diphenhydrAMINE HCL 50 MG CAP PO PRN (21:00)
[2016-09-29 05:44] VITALS: BP 100/60; PULSE 79; RESP 16; TEMP 97.7
[2016-09-29] MEDS: ARIPiprazole 10 MG TAB PO SCH (09:00)
[2016-09-29] MEDS: MULTIVIT/MIN/PREN/FOL AC/IRON PRENATAL TAB PO SCH (09:00)
[2016-09-29] MEDS: SERTRALINE HCL 50 MG TAB PO SCH (09:00)
--- NOTE | 2016-09-29 17:41 | HHI.PYPN ---
Subjective Remarks Pt seen and discussed with staff. She reports that mood is improving and depression has decreased. No medication side effects. No SI/HI No behavioral problems. Objective Alert: Yes [place]: Person (once again O x 3), Place, Date, Situation Mood: Calm Affect: Restricted Memory Intact: Comment (intact) Hallucinations: Other (none) Delusions: No Delusion Type: Other (no delusions) Suicidal: Ideation (denies today) Homicidal: Ideation (no HI) Insight/Judgement improving Labs Date/Time Procedure Status Source Growth 09/25/16 15:00 Urine Culture - Final Complete Urine Catheterized Urine 50-100,000 CFU/ML MIXED GRAM POSITIVE... Vitals/IOs Vital Signs Date Time Temp Pulse Resp B/P Pulse Ox O2 Delivery O2 Flow Rate FiO2 09/29/16 05:44 97.7 79 16 100/60 09/28/16 18:50 94 Assessment & Plan Problem List: (1) Major depressive disorder, recurrent severe without psychotic features ICD Code: F33.2 (2) ICD Code: Z33.1 (3) Schizoaffective disorder, bipolar type ICD Code: F25.0 Assessment & Plan Continue current tx plan. Estimated LOS: days Justification for Cont. Inpt. risk of decompensation Request HC Surrog/Guard Advoc?: No Problem Qualifiers (1) : Qualified Code: Z33.1 - , unspecified gestational age Alberta Bowser MD Sep 29, 2016 17:41
[2016-09-29 22:04] VITALS: BP 117/55; PULSE 84; RESP 18; TEMP 97.7; O2SAT 97
[2016-09-30 06:00] VITALS: BP 114/67; PULSE 89; RESP 16; TEMP 97.6
[2016-09-30] MEDS: SERTRALINE HCL 50 MG TAB PO SCH (08:52)
[2016-09-30] MEDS: MULTIVIT/MIN/PREN/FOL AC/IRON PRENATAL TAB PO SCH (08:52)
[2016-09-30] MEDS: ARIPiprazole 10 MG TAB PO SCH (08:52)
--- NOTE | 2016-09-30 19:03 | HHI.PYPN ---
Subjective Remarks Pt seen and discussed with staff. Pt is compliant with medication and denies side effects. She reports depression continues to improve. No SI/HI. She is active in milieu/ Objective Alert: Yes [place]: Person (once again O x 3), Place, Date, Situation Mood: Calm Affect: Restricted Memory Intact: Comment (intact) Hallucinations: Other (none) Delusions: No Delusion Type: Other (no delusions) Suicidal: Ideation (denies today) Homicidal: Ideation (no HI) Insight/Judgement fair Vitals/IOs Vital Signs Date Time Temp Pulse Resp B/P Pulse Ox O2 Delivery O2 Flow Rate FiO2 09/30/16 06:00 97.6 89 16 114/67 09/29/16 22:04 97 Assessment & Plan Problem List: (1) Major depressive disorder, recurrent severe without psychotic features ICD Code: F33.2 (2) ICD Code: Z33.1 Assessment & Plan Continue current tx plan. Estimated LOS: days Justification for Cont. Inpt. risks of decompensation Request HC Surrog/Guard Advoc?: No Problem Qualifiers (1) : Qualified Code: Z33.1 - , unspecified gestational age Alberta Bowser MD Sep 30, 2016 19:03
[2016-09-30] MEDS: hydrOXYzine HCL 50 MG TAB PO PRN (20:26)
[2016-09-30 21:05] VITALS: BP 122/57; PULSE 86; TEMP 97.8
[2016-10-01 05:30] VITALS: BP 109/55; PULSE 86; RESP 16; TEMP 97.7
[2016-10-01] MEDS: ARIPiprazole 10 MG TAB PO SCH (08:46)
[2016-10-01] MEDS: MULTIVIT/MIN/PREN/FOL AC/IRON PRENATAL TAB PO SCH (08:50)
[2016-10-01] MEDS: SERTRALINE HCL 50 MG TAB PO SCH (08:50)
--- NOTE | 2016-10-01 15:15 | HHI.PYPN ---
Subjective Remarks Patient seen with treatment team and patient's mother, chart reviewed. Patient mother continues to focus on her daughter's need to take responsibility for her behaviors and look more long-term. Patient initially somewhat tearful labile especially her focus for the mother, there may be a modicum of of manipulation related to this. Patient somewhat superficial acknowledges her need to take control and participate in finding an appropriate placement for herself. In looking at her long-term goals of reunification with her children and perhaps mother . Patient has given counselor permission to talk with her mother- in-law. Patient compliant medications. And does denies suicidality homicidality to a treatment team. For now continue treatment and encourage her participation and effort to find proper placement Review of Systems Except as stated in HPI: all other systems reviewed are Neg Objective Alert: Yes [place]: Person (once again O x 3), Place, Date, Situation Mood: Calm Affect: Restricted Memory Intact: Comment (intact) Hallucinations: Other (none) Delusions: No Delusion Type: Other (no delusions) Suicidal: Ideation (denies today) Homicidal: Ideation (no HI) Insight/Judgement Poor to fair Vitals/IOs Vital Signs Date Time Temp Pulse Resp B/P Pulse Ox O2 Delivery O2 Flow Rate FiO2 10/01/16 05:30 97.7 86 16 109/55 09/29/16 22:04 97 Assessment & Plan Problem List: (1) Major depressive disorder, recurrent severe without psychotic features ICD Code: F33.2 (2) ICD Code: Z33.1 Assessment & Plan Estimated LOS: days patient continues depressed and tearful, ambulating redirection to focus towards recommendations of the treatment team and her mother. For now continue treatment Justification for Cont. Inpt. At this time the patient would severely decompensate if placed in a lower level of care Discharge Planning To be determined Request HC Surrog/Guard Advoc?: No Problem Qualifiers (1) : Qualified Code: Z33.1 - , unspecified gestational age Rolo Lamar MD Oct 01, 2016 15:15
[2016-10-01 19:00] VITALS: BP 132/66; PULSE 92; RESP 16; TEMP 97.9
[2016-10-02 06:19] VITALS: BP 111/56; PULSE 85; RESP 16; TEMP 97.8
--- NOTE | 2016-10-02 09:04 | HHI.PYPN ---
Subjective Remarks Patient seen in whole floor staff, chart review, patient's mood is calm appropriate today smiling with good eye contact. We briefly discussed the treatment team meeting with her mother yesterday. She acknowledges that her mother knows how to pull her strings. She is also aware that she needs to readdress her relationship with her mother. Patient continues to make efforts in helping the counselor find appropriate placement patient complained medications denies suicidality homicidality voices or visions Review of Systems Except as stated in HPI: all other systems reviewed are Neg Objective Alert: Yes [place]: Person (once again O x 3), Place, Date, Situation Mood: Calm Affect: Restricted Memory Intact: Comment (intact) Hallucinations: Other (none) Delusions: No Delusion Type: Other (no delusions) Suicidal: Ideation (denies today) Homicidal: Ideation (no HI) Insight/Judgement Poor Vitals/IOs Vital Signs Date Time Temp Pulse Resp B/P Pulse Ox O2 Delivery O2 Flow Rate FiO2 10/02/16 06:19 97.8 85 16 111/56 09/29/16 22:04 97 Assessment & Plan Problem List: (1) Major depressive disorder, recurrent severe without psychotic features ICD Code: F33.2 (2) ICD Code: Z33.1 Assessment & Plan Estimated LOS: days patient continues somewhat depressed though improving, continues to participate in assist with placement issues, Justification for Cont. Inpt. At this time patient will decompensate if placed in the lower level of care Discharge Planning To be determined Request HC Surrog/Guard Advoc?: No Problem Qualifiers (1) : Qualified Code: Z33.1 - , unspecified gestational age Rolo Lamar MD Oct 02, 2016 09:04
[2016-10-02] MEDS: SERTRALINE HCL 50 MG TAB PO SCH (09:08)
[2016-10-02] MEDS: MULTIVIT/MIN/PREN/FOL AC/IRON PRENATAL TAB PO SCH (09:08)
[2016-10-02] MEDS: ARIPiprazole 10 MG TAB PO SCH (09:08)
[2016-10-02 18:30] VITALS: BP 124/59; PULSE 95; RESP 16; TEMP 99.2; O2SAT 95
[2016-10-02] MEDS: diphenhydrAMINE HCL 50 MG CAP PO PRN (21:53)
[2016-10-02] MEDS: hydrOXYzine HCL 50 MG TAB PO PRN (21:53)
[2016-10-03 05:58] VITALS: BP 105/59; PULSE 89; RESP 16; TEMP 98.8; O2SAT 98
[2016-10-03] MEDS: MULTIVIT/MIN/PREN/FOL AC/IRON PRENATAL TAB PO SCH (08:32)
[2016-10-03] MEDS: ARIPiprazole 10 MG TAB PO SCH (08:32)
[2016-10-03] MEDS: SERTRALINE HCL 50 MG TAB PO SCH (08:32)
--- NOTE | 2016-10-03 13:23 | HHI.PYPN ---
Subjective Remarks Patient seen in dayroom with floor staff, patient continues to participate with looking for appropriate placement for she and her unborn baby. She is compliant medications denies suicidality homicidality at this time Review of Systems Except as stated in HPI: all other systems reviewed are Neg Objective Alert: Yes [place]: Person (once again O x 3), Place, Date, Situation Mood: Calm Affect: Restricted Memory Intact: Comment (intact) Hallucinations: Other (none) Delusions: No Delusion Type: Other (no delusions) Suicidal: Ideation (denies today) Homicidal: Ideation (no HI) Insight/Judgement Poor to fair Vitals/IOs Vital Signs Date Time Temp Pulse Resp B/P Pulse Ox O2 Delivery O2 Flow Rate FiO2 10/03/16 05:58 98.8 89 16 105/59 98 Assessment & Plan Problem List: (1) Major depressive disorder, recurrent severe without psychotic features ICD Code: F33.2 (2) ICD Code: Z33.1 Assessment & Plan Estimated LOS: days patient calm from increase cooperation and some mild increase insight. Continues work with placement issues. Does denies suicidality of voices at this time Justification for Cont. Inpt. At this time patient will decompensate if placed in the lower level of care Discharge Planning To be determined Request HC Surrog/Guard Advoc?: No Problem Qualifiers (1) : Qualified Code: Z33.1 - , unspecified gestational age Rolo Lamar MD Oct 03, 2016 13:23
[2016-10-03 18:41] VITALS: BP 130/70; PULSE 87; RESP 16; TEMP 98.1; O2SAT 98
[2016-10-03] MEDS: diphenhydrAMINE HCL 50 MG CAP PO PRN (20:48)
[2016-10-03] MEDS: hydrOXYzine HCL 50 MG TAB PO PRN (20:48)
[2016-10-04 05:00] VITALS: BP 110/60; PULSE 83; RESP 16; TEMP 98; O2SAT 96
[2016-10-04] MEDS: ARIPiprazole 10 MG TAB PO SCH (09:02)
[2016-10-04] MEDS: MULTIVIT/MIN/PREN/FOL AC/IRON PRENATAL TAB PO SCH (09:02)
[2016-10-04] MEDS: SERTRALINE HCL 50 MG TAB PO SCH (09:03)
--- NOTE | 2016-10-04 12:44 | HHI.PYPN ---
Subjective Remarks Patient seen in dayroom with floor staff, patient continues to cooperate and participate at peak effort into contacting various placement possibilities. She denies suicidality homicidality or voices at this time. But also has insight into the fact that there is no alternative at this time for her except to get into an appropriate placement. Patient states she feels some mild lightheadedness perhaps related to her morning dose for Abilify. will change Abilify daily at bedtime Review of Systems Except as stated in HPI: all other systems reviewed are Neg Objective Alert: Yes [place]: Person (once again O x 3), Place, Date, Situation Mood: Calm Affect: Restricted Memory Intact: Comment (intact) Hallucinations: Other (none) Delusions: No Delusion Type: Other (no delusions) Suicidal: Ideation (denies today) Homicidal: Ideation (no HI) Insight/Judgement Poor to fair Vitals/IOs Vital Signs Date Time Temp Pulse Resp B/P Pulse Ox O2 Delivery O2 Flow Rate FiO2 10/04/16 05:00 98.0 83 16 110/60 96 Assessment & Plan Problem List: (1) Major depressive disorder, recurrent severe without psychotic features ICD Code: F33.2 (2) ICD Code: Z33.1 Assessment & Plan Estimated LOS: days patient continues somewhat depressed but improving, showing some insight and processing and assisting with finding appropriate placement for her Justification for Cont. Inpt. At this time patient would decompensate and placed in a lower level of care Discharge Planning To be determined Request HC Surrog/Guard Advoc?: No Problem Qualifiers (1) : Qualified Code: Z33.1 - , unspecified gestational age Rolo Lamar MD Oct 04, 2016 12:44
[2016-10-04 18:22] VITALS: BP 121/64; PULSE 85; RESP 17; TEMP 97.9; O2SAT 98
[2016-10-04] MEDS: hydrOXYzine HCL 50 MG TAB PO PRN (20:36)
[2016-10-04] MEDS: diphenhydrAMINE HCL 50 MG CAP PO PRN (20:36)
[2016-10-05 05:09] VITALS: BP 109/59; PULSE 92; RESP 18; TEMP 98.1
[2016-10-05] MEDS: MULTIVIT/MIN/PREN/FOL AC/IRON PRENATAL TAB PO SCH (08:49)
[2016-10-05] MEDS: SERTRALINE HCL 50 MG TAB PO SCH (08:49)
--- NOTE | 2016-10-05 13:52 | HHI.PYPN ---
Subjective Remarks Patient seen in [place] with nurse [place], chart reviewed, patient continues to actively participate in search for appropriate placement. She now has given written permission nephrostomy talk also with her [id number]. Her conversations with her mother remained good. For now continue treatment no change Review of Systems Except as stated in HPI: all other systems reviewed are Neg Objective Alert: Yes [place]: Person (once again O x 3), Place, Date, Situation Mood: Calm Affect: Restricted Memory Intact: Comment (intact) Hallucinations: Other (none) Delusions: No Delusion Type: Other (no delusions) Suicidal: Ideation (denies today) Homicidal: Ideation (no HI) Insight/Judgement Poor Vitals/IOs Vital Signs Date Time Temp Pulse Resp B/P Pulse Ox O2 Delivery O2 Flow Rate FiO2 10/05/16 05:09 98.1 92 18 109/59 10/04/16 18:22 98 Assessment & Plan Problem List: (1) Major depressive disorder, recurrent severe without psychotic features ICD Code: F33.2 (2) ICD Code: Z33.1 Assessment & Plan Estimated LOS: days patient depression slowly softening, denying suicidality. Continues actively participating in the search for an appropriate placement Justification for Cont. Inpt. This time patient would decompensate if placed in a lower level of care Discharge Planning To be determined Request HC Surrog/Guard Advoc?: No Problem Qualifiers (1) : Qualified Code: Z33.1 - , unspecified gestational age Rolo Lamar MD Oct 05, 2016 13:52
[2016-10-05 18:57] VITALS: BP 114/65; PULSE 97; RESP 18; TEMP 98.4; O2SAT 94
[2016-10-05] MEDS: ARIPiprazole 10 MG TAB PO SCH (20:24)
[2016-10-06 06:25] VITALS: BP 111/66; PULSE 98; RESP 16; TEMP 98
[2016-10-06] MEDS: SERTRALINE HCL 50 MG TAB PO SCH (08:38)
[2016-10-06] MEDS: MULTIVIT/MIN/PREN/FOL AC/IRON PRENATAL TAB PO SCH (08:38)
--- NOTE | 2016-10-06 14:49 | HHI.PYPN ---
Subjective Remarks Patient was seen and case discussed with nursing. Patient is compliant with medications and behaving well on the unit. Is concerned about future placement. She denies suicidal ideations thought or plan. Objective Alert: Yes [place]: Person (once again O x 3), Place, Date, Situation Mood: Calm Affect: Restricted Memory Intact: Comment (intact) Hallucinations: Other (none) Delusions: No Delusion Type: Other (no delusions) Suicidal: Ideation (denies today) Homicidal: Ideation (no HI) Insight/Judgement Fair Vitals/IOs Vital Signs Date Time Temp Pulse Resp B/P Pulse Ox O2 Delivery O2 Flow Rate FiO2 10/06/16 06:25 98.0 98 16 111/66 10/05/16 18:57 94 Assessment & Plan Problem List: (1) Major depressive disorder, recurrent severe without psychotic features ICD Code: F33.2 (2) ICD Code: Z33.1 Assessment & Plan Continue current treatment plan Justification for Cont. Inpt. Patient will decompensate a less restrictive environment Request HC Surrog/Guard Advoc?: No Problem Qualifiers (1) : Qualified Code: Z33.1 - , unspecified gestational age Tyrone Mckay DO Oct 06, 2016 14:49
[2016-10-06 18:45] VITALS: BP 134/69; PULSE 83; RESP 16; TEMP 97.5; O2SAT 100
[2016-10-06] MEDS: ARIPiprazole 10 MG TAB PO SCH (20:18)
[2016-10-06] MEDS: hydrOXYzine HCL 50 MG TAB PO PRN (20:56)
[2016-10-06] MEDS: diphenhydrAMINE HCL 50 MG CAP PO PRN (20:56)
[2016-10-07 06:32] VITALS: BP 97/56; PULSE 90; RESP 18; TEMP 97.9; O2SAT 97
[2016-10-07] MEDS: SERTRALINE HCL 50 MG TAB PO SCH (08:40)
[2016-10-07] MEDS: MULTIVIT/MIN/PREN/FOL AC/IRON PRENATAL TAB PO SCH (08:40)
--- NOTE | 2016-10-07 15:38 | HHI.PYPN ---
Subjective Remarks Patient was seen and case discussed with nursing. Patient is pleasant and cooperative with exam. She noted a benefit from the Remeron in the past and we talked about its risk and says she will discuss this with treating psychiatrist tomorrow. Mood remains stable. Looking forward to a discharge and placement next week. Denies suicidal ideations intent or plan Objective Alert: Yes [place]: Person (once again O x 3), Place, Date, Situation Mood: Calm Affect: Restricted Memory Intact: Comment (intact) Hallucinations: Other (none) Delusions: No Delusion Type: Other (no delusions) Suicidal: Ideation (denies today) Homicidal: Ideation (no HI) Insight/Judgement Poor Vitals/IOs Vital Signs Date Time Temp Pulse Resp B/P Pulse Ox O2 Delivery O2 Flow Rate FiO2 10/07/16 06:32 97.9 90 18 97/56 97 Assessment & Plan Problem List: (1) Major depressive disorder, recurrent severe without psychotic features ICD Code: F33.2 (2) ICD Code: Z33.1 Assessment & Plan Continue current treatment plan Justification for Cont. Inpt. Patient will decompensate in a less restrictive setting Request HC Surrog/Guard Advoc?: No Problem Qualifiers (1) : Qualified Code: Z33.1 - , unspecified gestational age yTrone Mckay DO Oct 07, 2016 15:38
[2016-10-07 19:05] VITALS: BP 116/57; PULSE 78; RESP 18; TEMP 98.4; O2SAT 98
[2016-10-07] MEDS: diphenhydrAMINE HCL 50 MG CAP PO PRN (20:22)
[2016-10-07] MEDS: ARIPiprazole 10 MG TAB PO SCH (20:22)
[2016-10-07] MEDS: hydrOXYzine HCL 50 MG TAB PO PRN (20:22)
[2016-10-08 05:21] VITALS: BP 104/56; PULSE 86; RESP 15; TEMP 97.8; O2SAT 95
[2016-10-08] MEDS: MULTIVIT/MIN/PREN/FOL AC/IRON PRENATAL TAB PO SCH (08:23)
[2016-10-08] MEDS: SERTRALINE HCL 50 MG TAB PO SCH (08:23)
--- NOTE | 2016-10-08 15:40 | HHI.PYPN ---
Subjective Remarks Patient discussed with treatment team and patient's mother. We discussed various alternatives related to placement. Patient seems to be falling between the cracks with programs due to her not being a substance abuser. Patient appears to be having good relationship with her [id number]. The treatment team and patient's mother agree that perhaps it joint family session with mother [id number] and patient would be beneficial. Will be doing that tomorrow morning. Patient was also seen today after treatment team patient continues to make efforts at finding of placement also. For now continue treatment no change Review of Systems Except as stated in HPI: all other systems reviewed are Neg Objective Alert: Yes [place]: Person (once again O x 3), Place, Date, Situation Mood: Calm Affect: Restricted Memory Intact: Comment (intact) Hallucinations: Other (none) Delusions: No Delusion Type: Other (no delusions) Suicidal: Ideation (denies today) Homicidal: Ideation (no HI) Insight/Judgement Poor Vitals/IOs Vital Signs Date Time Temp Pulse Resp B/P Pulse Ox O2 Delivery O2 Flow Rate FiO2 10/08/16 05:21 97.8 86 15 104/56 95 Assessment & Plan Problem List: (1) Major depressive disorder, recurrent severe without psychotic features ICD Code: F33.2 (2) ICD Code: Z33.1 Assessment & Plan Estimated LOS: days patient's depression continues to soften, continues to make efforts at finding placement. Will have family meeting with mother mother- in-law patient tomorrow morning Justification for Cont. Inpt. At this time patient will decompensate if placed in a lower level of care Discharge Planning To be determined Request HC Surrog/Guard Advoc?: No Problem Qualifiers (1) : Qualified Code: Z33.1 - , unspecified gestational age Rolo Lamar MD Oct 08, 2016 15:40
[2016-10-08 19:48] VITALS: BP 127/59; PULSE 83; RESP 18; TEMP 98.2; O2SAT 98
[2016-10-08] MEDS: diphenhydrAMINE HCL 50 MG CAP PO PRN (20:05)
[2016-10-08] MEDS: hydrOXYzine HCL 50 MG TAB PO PRN (20:05)
[2016-10-08] MEDS: ARIPiprazole 10 MG TAB PO SCH (20:05)
[2016-10-09 05:57] VITALS: BP 113/58; PULSE 82; RESP 18; TEMP 97.9
[2016-10-09] MEDS: SERTRALINE HCL 50 MG TAB PO SCH (08:42)
[2016-10-09] MEDS: MULTIVIT/MIN/PREN/FOL AC/IRON PRENATAL TAB PO SCH (09:00)
--- NOTE | 2016-10-09 10:42 | HHI.PYPN ---
Subjective Remarks Patient seen today in family meeting with patient's mother and [id number] patient was again confronted with her past behaviors that led to a marked reluctance by family or extended family members to take her in. Patient showing some insight into this though also becoming somewhat tearful, perhaps somewhat manipulative manner. Patient does continue to make telephone calls looking for placement. We did discuss an alternative the patient may find placement in a local [facility] and receive outpatient treatment for her other various issues. She and her family was concerned about possible placement issues related to her unborn child. There is some need also to maintain boundaries between patient's mjijag-yn-zfc and herself. For now continued treatment no change Review of Systems Except as stated in HPI: all other systems reviewed are Neg Objective Alert: Yes [place]: Person (once again O x 3), Place, Date, Situation Mood: Calm Affect: Restricted Memory Intact: Comment (intact) Hallucinations: Other (none) Delusions: No Delusion Type: Other (no delusions) Suicidal: Ideation (denies today) Homicidal: Ideation (no HI) Insight/Judgement Poor Vitals/IOs Vital Signs Date Time Temp Pulse Resp B/P Pulse Ox O2 Delivery O2 Flow Rate FiO2 10/09/16 05:57 97.9 82 18 113/58 10/08/16 19:48 98 Assessment & Plan Problem List: (1) Major depressive disorder, recurrent severe without psychotic features ICD Code: F33.2 (2) ICD Code: Z33.1 Assessment & Plan Estimated LOS: days patient continues somewhat depressed though showing stability to focus and process issues related to placement treatment plan upcoming placement of her unborn child Justification for Cont. Inpt. With this in the patient would significantly decompensated placed in a lower level of care Discharge Planning To be determined Request Surrog/Guard Advoc?: No Problem Qualifiers (1) : Qualified Code: Z33.1 - , unspecified gestational age Rolo Lamar MD Oct 09, 2016 10:42
[2016-10-09] MEDS: ARIPiprazole 10 MG TAB PO SCH (20:22)
[2016-10-09] MEDS: hydrOXYzine HCL 50 MG TAB PO PRN (20:22)
[2016-10-09] MEDS: diphenhydrAMINE HCL 50 MG CAP PO PRN (20:22)
[2016-10-09 20:41] VITALS: BP 152/64; PULSE 95; RESP 16; TEMP 98.5; O2SAT 99
[2016-10-10 05:58] VITALS: BP 102/63; PULSE 91; RESP 16; TEMP 97.8; O2SAT 94
[2016-10-10] MEDS: MULTIVIT/MIN/PREN/FOL AC/IRON PRENATAL TAB PO SCH (08:24)
[2016-10-10] MEDS: SERTRALINE HCL 50 MG TAB PO SCH (08:24)
--- NOTE | 2016-10-10 12:09 | HHI.PYPN ---
Subjective Remarks Patient seen on unit with floor staff, patient calm cooperative stating that the [facility] they contacted needs deposits that the family cannot afford. She also continuing to await telephone interview from another possible placement. She does denies suicidality homicidality voices or visions. She also states that she requested a family meeting with counselor herself and her to discuss the possible future. For now continue treatment no change Review of Systems Except as stated in HPI: all other systems reviewed are Neg Objective Alert: Yes [place]: Person (once again O x 3), Place, Date, Situation Mood: Calm Affect: Restricted Memory Intact: Comment (intact) Hallucinations: Other (none) Delusions: No Delusion Type: Other (no delusions) Suicidal: Ideation (denies today) Homicidal: Ideation (no HI) Insight/Judgement Poor to fair Vitals/IOs Vital Signs Date Time Temp Pulse Resp B/P Pulse Ox O2 Delivery O2 Flow Rate FiO2 10/10/16 05:58 97.8 91 16 102/63 94 Assessment & Plan Problem List: (1) Major depressive disorder, recurrent severe without psychotic features ICD Code: F33.2 (2) ICD Code: Z33.1 Assessment & Plan Estimated LOS: days patient depression continues to lift, patient continues to show good participation in efforts to find appropriate placement. It appears the [facility] that was [facility] they cannot afford. Patient continues to wait for telephone conference from another facility. Patient also requests an attempt to arrange meetings with her herself and counselor Justification for Cont. Inpt. At this time patient will decompensate if placed in a lower level of care Discharge Planning To be determined Request HC Surrog/Guard Advoc?: No Problem Qualifiers (1) : Qualified Code: Z33.1 - , unspecified gestational age Rolo Lamar MD Oct 10, 2016 12:09
[2016-10-10] MEDS: ARIPiprazole 10 MG TAB PO SCH (20:35)
[2016-10-10 20:40] VITALS: BP 127/63; PULSE 94; RESP 18; TEMP 98.2; O2SAT 99
[2016-10-11 06:32] VITALS: BP 105/70; PULSE 88; RESP 16; TEMP 97.3; O2SAT 98
[2016-10-11] MEDS: MULTIVIT/MIN/PREN/FOL AC/IRON PRENATAL TAB PO SCH (08:12)
[2016-10-11] MEDS: SERTRALINE HCL 50 MG TAB PO SCH (08:12)
--- NOTE | 2016-10-11 13:12 | HHI.PYPN ---
Subjective Remarks Patient seen in [place] of floor staff, chart review, patient continues calm cooperative and pleasant stated she did have a telephone interview with a possible placement late yesterday afternoon. It appears that staff requested 5 years of her medical history. Our medical records department is working on that now. Patient also wishes to have the family meeting with herself her counselor Celena and myself for first part of next week we will attempt to arrange that for now continue treatment no change Review of Systems Except as stated in HPI: all other systems reviewed are Neg Objective Alert: Yes [place]: Person (once again O x 3), Place, Date, Situation Mood: Calm Affect: Restricted Memory Intact: Comment (intact) Hallucinations: Other (none) Delusions: No Delusion Type: Other (no delusions) Suicidal: Ideation (denies today) Homicidal: Ideation (no HI) Insight/Judgement Poor to fair Vitals/IOs Vital Signs Date Time Temp Pulse Resp B/P Pulse Ox O2 Delivery O2 Flow Rate FiO2 10/11/16 06:32 97.3 88 16 105/70 98 Intake and Output 10/10/16 10/10/16 10/11/16 08:00 16:00 00:00 Intake Total 240 ml Balance 240 ml Assessment & Plan Problem List: (1) Major depressive disorder, recurrent severe without psychotic features ICD Code: F33.2 (2) ICD Code: Z33.1 Assessment & Plan Estimated LOS: days patient continues to improve with her depression, continues to be cooperative and participating in the search to find an appropriate placement. Also attempt to arrange meetings with her for early next week Justification for Cont. Inpt. At this time patient will decompensate with placed on a lower level of care Discharge Planning To be determined Request HC Surrog/Guard Advoc?: No Problem Qualifiers (1) : Qualified Code: Z33.1 - , unspecified gestational age Rolo Lamar MD Oct 11, 2016 13:12
[2016-10-11 19:26] VITALS: BP 125/60; PULSE 92; RESP 18; TEMP 99; O2SAT 98
[2016-10-11] MEDS: ARIPiprazole 10 MG TAB PO SCH (19:49)
[2016-10-11] MEDS: diphenhydrAMINE HCL 50 MG CAP PO PRN (19:50)
[2016-10-11] MEDS: hydrOXYzine HCL 50 MG TAB PO PRN (19:50)
[2016-10-12 05:35] VITALS: BP 104/58; PULSE 90; RESP 16; TEMP 98.3; O2SAT 97
[2016-10-12] MEDS: MULTIVIT/MIN/PREN/FOL AC/IRON PRENATAL TAB PO SCH (08:20)
[2016-10-12] MEDS: SERTRALINE HCL 50 MG TAB PO SCH (08:20)
--- NOTE | 2016-10-12 14:22 | HHI.PYPN ---
Subjective Remarks Patient seen in [place] with floor staff, patient continues to cope with demands of possible placement. Awaiting now our medical records department to ship her records to possible placement. She also wishes to set up a meeting with her counseling myself perhaps for Saturday morning during my treatment team. Patient showing some insight into the need for this without the involvement of either her mother or [id number] patient denies suicidality voices or visions , is compliant with medications Review of Systems Except as stated in HPI: all other systems reviewed are Neg Objective Alert: Yes [place]: Person (once again O x 3), Place, Date, Situation Mood: Calm Affect: Restricted Memory Intact: Comment (intact) Hallucinations: Other (none) Delusions: No Delusion Type: Other (no delusions) Suicidal: Ideation (denies today) Homicidal: Ideation (no HI) Insight/Judgement Poor to fair Vitals/IOs Vital Signs Date Time Temp Pulse Resp B/P Pulse Ox O2 Delivery O2 Flow Rate FiO2 10/12/16 05:35 98.3 90 16 104/58 97 Assessment & Plan Problem List: (1) Major depressive disorder, recurrent severe without psychotic features ICD Code: F33.2 (2) ICD Code: Z33.1 Assessment & Plan Estimated LOS: days patient depression is slowly lifting, continues to cooperate well with placement issues and commands. Will attempt to arrange meetings with patient's and counselor for early next week Justification for Cont. Inpt. At this time patient would decompensate if placed in the lower level of care Discharge Planning To be determined Request HC Surrog/Guard Advoc?: No Problem Qualifiers (1) : Qualified Code: Z33.1 - , unspecified gestational age Rolo Lamar MD Oct 12, 2016 14:22
--- NOTE | 2016-10-12 15:59 | PD.OB.ANTE ---
Subjective Diagnosis: (1) Supervision of normal subsequent Interval History 35 year-old of @26 weeks with no acute complaints. Pending placement at another facility (psych vs other?). Eating, voiding, stooling, ambulating without difficulty. Denies SMALL, SOB/CP, calf pain. Antepartum ROS: Reports: movement normal, Denies: New complaints, Loss of fluid, Vaginal bleeding, Contractions (Nancy Sanchez MD R1) Objective Vital Signs Vital Signs Date Time Temp Pulse Resp B/P Pulse Ox O2 Delivery O2 Flow Rate FiO2 10/12/16 05:35 98.3 90 16 104/58 97 10/11/16 19:26 99.0 92 18 125/60 98 Physical Exam GENERAL: Adult gravid female in no acute distress. CARDIOVASCULAR: Radial pulse 2+ RESPIRATORY: Breathing well on room air. ABDOMEN/GI: Abdomen soft, gravid. FHR: 120s EXTREMITIES: No cyanosis or edema, non-tender, without signs of DVT. (Nancy Sanchez MD R1) Assessment and Plan Problem List: (1) Supervision of normal subsequent Status: Acute Assessment & Plan: 35 year-old [id number] @26 weeks by 2nd trimester U/S hospitalized 09/06/17 for issues of depression and found with incidental 23 week . complicated by AMA, tobacco use, late to care -Daily FHT - Assessment and Plan -Pending placement -26 weeks at present, will need routine 24-28 week labs -Hep B neg, HIV neg, RPR immune, VZV immune -Mother blood type A+, antibody negative, RhoGAM not indicated -Prior vaginal births, anticipate vaginal delivery at term SDW: Dr Tijerina DW: Dr Brown (Nancy Sanchez MD R1) Assessment and Plan Patient seen and evaluated with resident under direct supervision, agree with assessment and plan. (Randolph Choudhury MD) Nancy Sanchez MD R1 Oct 12, 2016 15:59 Randolph Choudhury MD Oct 12, 2016 19:29 Nancy Sanchez MD R1 Oct 12, 2016 15:59
[2016-10-12 19:25] VITALS: BP 134/66; PULSE 102; RESP 16; TEMP 98.2; O2SAT 94
[2016-10-12] MEDS: ARIPiprazole 10 MG TAB PO SCH (20:13)
[2016-10-12] MEDS: hydrOXYzine HCL 50 MG TAB PO PRN (20:13)
[2016-10-12] MEDS: diphenhydrAMINE HCL 50 MG CAP PO PRN (20:15)
[2016-10-13 05:28] VITALS: BP 112/59; PULSE 94; RESP 17; TEMP 97.4; O2SAT 95
[2016-10-13] MEDS: MULTIVIT/MIN/PREN/FOL AC/IRON PRENATAL TAB PO SCH (08:12)
[2016-10-13] MEDS: SERTRALINE HCL 50 MG TAB PO SCH (08:12)
--- NOTE | 2016-10-13 17:09 | HHI.PYPN ---
Subjective Remarks Pt seen and discussed with staff. Pt reports depression continues to improve. No medication side effects. No SI/HI. No behavioral problems on unit. Objective Alert: Yes [place]: Person (once again O x 3), Place, Date, Situation Mood: Calm Affect: Restricted Memory Intact: Comment (intact) Hallucinations: Other (none) Delusions: No Delusion Type: Other (no delusions) Suicidal: Ideation (denies today) Homicidal: Ideation (no HI) Insight/Judgement poor Vitals/IOs Vital Signs Date Time Temp Pulse Resp B/P Pulse Ox O2 Delivery O2 Flow Rate FiO2 10/13/16 05:28 97.4 94 17 112/59 95 Assessment & Plan Problem List: (1) Major depressive disorder, recurrent severe without psychotic features ICD Code: F33.2 (2) ICD Code: Z33.1 Assessment & Plan Continue current tx plan. Estimated LOS: days Justification for Cont. Inpt. risk of decompensation Request HC Surrog/Guard Advoc?: No Problem Qualifiers (1) : Qualified Code: Z33.1 - , unspecified gestational age Alberta Bowser MD Oct 13, 2016 17:09
[2016-10-13 18:53] VITALS: BP 121/72; PULSE 87; RESP 18; TEMP 98.1; O2SAT 97
[2016-10-13] MEDS: ARIPiprazole 10 MG TAB PO SCH (20:45)
[2016-10-13] MEDS: diphenhydrAMINE HCL 50 MG CAP PO PRN (21:07)
[2016-10-13] MEDS: hydrOXYzine HCL 50 MG TAB PO PRN (21:07)
[2016-10-14 06:03] VITALS: BP 104/55; PULSE 85; RESP 17; TEMP 98.7; O2SAT 100
[2016-10-14] MEDS: MULTIVIT/MIN/PREN/FOL AC/IRON PRENATAL TAB PO SCH (08:14)
[2016-10-14] MEDS: SERTRALINE HCL 50 MG TAB PO SCH (08:14)
--- NOTE | 2016-10-14 11:56 | HHI.PYPN ---
Subjective Remarks Pt seen and discussed with staff. She continues to do well on current regimen and reports that depression is well controlled. No medication side effects. She reports good movement. No SI/HI. Objective Alert: Yes [place]: Person (once again O x 3), Place, Date, Situation Mood: Calm Affect: Restricted Memory Intact: Comment (intact) Hallucinations: Other (none) Delusions: No Delusion Type: Other (no delusions) Suicidal: Ideation (denies) Homicidal: Ideation (no HI) Insight/Judgement fair Vitals/IOs Vital Signs Date Time Temp Pulse Resp B/P Pulse Ox O2 Delivery O2 Flow Rate FiO2 10/14/16 06:03 98.7 85 17 104/55 100 Assessment & Plan Problem List: (1) Major depressive disorder, recurrent severe without psychotic features ICD Code: F33.2 (2) ICD Code: Z33.1 Assessment & Plan continue current tx plan. Awaiting placement Estimated LOS: days Justification for Cont. Inpt. risk of decompensation. Request HC Surrog/Guard Advoc?: No Problem Qualifiers (1) : Qualified Code: Z33.1 - , unspecified gestational age Alberta Bowser MD Oct 14, 2016 11:56
[2016-10-14 18:30] VITALS: BP 123/63; PULSE 103; RESP 18; TEMP 98.2; O2SAT 97
[2016-10-14] MEDS: ARIPiprazole 10 MG TAB PO SCH (20:58)
[2016-10-14] MEDS: hydrOXYzine HCL 50 MG TAB PO PRN (20:58)
[2016-10-14] MEDS: diphenhydrAMINE HCL 50 MG CAP PO PRN (20:58)
[2016-10-15] MEDS: MULTIVIT/MIN/PREN/FOL AC/IRON PRENATAL TAB PO SCH (08:56)
[2016-10-15] MEDS: SERTRALINE HCL 50 MG TAB PO SCH (08:56)
--- NOTE | 2016-10-15 12:13 | HHI.PYPN ---
Subjective Remarks Patient seen with treatment team and patient's mother and medical student Gia, chart review, patient continues to cope well with and participate in looking for appropriate placement. Continue to await word from telephone interview end of last week. Are also exploring still the possibility of patient moving in with an elderly gentleman who lives near her [id number]. Patient continues to denies suicidality homicidality voices or visions though mood remained somewhat dysphoric. Patient compliant medications. It appears we have now arranged for meeting with her and counselor Celena tomorrow morning at about 0830 Review of Systems Except as stated in HPI: all other systems reviewed are Neg Objective Alert: Yes [place]: Person (once again O x 3), Place, Date, Situation Mood: Calm Affect: Restricted Memory Intact: Comment (intact) Hallucinations: Other (none) Delusions: No Delusion Type: Other (no delusions) Suicidal: Ideation (denies) Homicidal: Ideation (no HI) Insight/Judgement Poor Vitals/IOs Vital Signs Date Time Temp Pulse Resp B/P Pulse Ox O2 Delivery O2 Flow Rate FiO2 10/14/16 18:30 98.2 103 18 123/63 97 Assessment & Plan Problem List: (1) Major depressive disorder, recurrent severe without psychotic features ICD Code: F33.2 (2) ICD Code: Z33.1 Assessment & Plan Estimated LOS: days patient continues somewhat depressed but showing good focus and cooperation with the tip to find placement. We'll meet with she and her tomorrow morning Justification for Cont. Inpt. At this time patient would decompensate if placed on lower level of care Discharge Planning To be determined Request HC Surrog/Guard Advoc?: No Problem Qualifiers (1) : Qualified Code: Z33.1 - , unspecified gestational age Rolo Lamar MD Oct 15, 2016 12:13
[2016-10-15 18:53] VITALS: BP 128/69; PULSE 91; RESP 18; TEMP 98.3; O2SAT 97
[2016-10-15] MEDS: ARIPiprazole 10 MG TAB PO SCH (20:31)
[2016-10-16 06:10] VITALS: BP 105/63; PULSE 65; RESP 18; TEMP 98.5; O2SAT 96
[2016-10-16] MEDS: MULTIVIT/MIN/PREN/FOL AC/IRON PRENATAL TAB PO SCH (08:23)
[2016-10-16] MEDS: SERTRALINE HCL 50 MG TAB PO SCH (08:23)
--- NOTE | 2016-10-16 13:47 | HHI.PYPN ---
Subjective Remarks Met with patient, patient's Chuy, counselor Celena, medical student Gia. Patient's appeared calm cooperative with some insight into the issues the conflicts in his confusion related to patient's behaviors ability to work with relationship issues and her mental health issues. Patient was tearful during the session also wishes counseling long-term treatment. It appears she also is willing to work with making the relationship successful. At the present time the continue to work with placement issues have not heard back yet from this one facility. For now continue treatment Review of Systems Except as stated in HPI: all other systems reviewed are Neg Objective Alert: Yes [place]: Person (once again O x 3), Place, Date, Situation Mood: Calm Affect: Restricted Memory Intact: Comment (intact) Hallucinations: Other (none) Delusions: No Delusion Type: Other (no delusions) Suicidal: Ideation (denies) Homicidal: Ideation (no HI) Insight/Judgement Poor to fair Labs Test 10/16/16 11:46 Glucose 1 Hour Challenge 157 MG/DL Vitals/IOs Vital Signs Date Time Temp Pulse Resp B/P Pulse Ox O2 Delivery O2 Flow Rate FiO2 10/16/16 06:10 98.5 65 18 105/63 96 Assessment & Plan Problem List: (1) Major depressive disorder, recurrent severe without psychotic features ICD Code: F33.2 (2) ICD Code: Z33.1 Assessment & Plan Estimated LOS: days patient continues somewhat tearful and depressed, appears to be willing to work with her related to relationship including ongoing counseling in the community. For now continue treatment Justification for Cont. Inpt. At this time patient will decompensate if placed in a lower level of care Discharge Planning To be determined Request HC Surrog/Guard Advoc?: No Problem Qualifiers (1) : Qualified Code: Z33.1 - , unspecified gestational age Rolo Lamar MD Oct 16, 2016 13:46
--- NOTE | 2016-10-16 16:46 | PD.CONS ---
History & Physical H&P Subjective: 35 year-old at 26/1 by late 2nd trimester ultrasound (dated 23.2 on 09/25/16 , KYLIE 01/19/17) with no acute complaints. Feels baby move, denies vaginal bleeding, denies loss of fluid. Eating, voiding, stooling, ambulating without difficulty Denies headache, shortness of breath, chest pain, calf pain. No updates on pending placement at [facility]. Objective Vital Signs Date Time Temp Pulse Resp B/P Pulse Ox O2 Delivery O2 Flow Rate FiO2 10/16/16 06:10 98.5 65 18 105/63 96 Physical Exam CONST: Adult gravid female in no acute distress CV: Radial pulse 2+. Regular rate. RESP: Breathing well on room air. GI: Abdomen soft, gravid. FHR: 130s MSK: No peripheral edema or calf pain PSYCH: Somewhat flat affect. Appears tired. Assessment/Plan 35 year-old [id number] @26/ weeks by late 2nd trimester U/S (KYLIE 01/19/17) hospitalized 09/06/17 for issues of depression and found with incidental . complicated by AMA, tobacco use, late to care 1. Intrapartum , 28 weeks gestation -Continue supportive care -GTT 1 hour returned elevated at 157. -Requires 3 hour GTT tomorrow AM -Chl/Gonorrorhea PCR pending -Hep B neg, HIV neg, RPR immune, VZV immune -Mother blood type A+, antibody negative, RhoGAM not indicated -Prior vaginal births, anticipate vaginal delivery at term SDW: Nancy Henriquez MD R1 Oct 16, 2016 16:46
[2016-10-16 20:08] VITALS: BP 134/66; PULSE 87; RESP 16; TEMP 98.2; O2SAT 98
[2016-10-16] MEDS: ARIPiprazole 10 MG TAB PO SCH (20:20)
[2016-10-16] MEDS: hydrOXYzine HCL 50 MG TAB PO PRN (20:22)
[2016-10-16] MEDS: diphenhydrAMINE HCL 50 MG CAP PO PRN (20:22)
[2016-10-16 20:29] LABS: CHLAMYDIA PCR NOT DETECTED (NOT DETECT); NEISSERIA PCR NOT DETECTED (NOT DETECT)
[2016-10-17 05:41] VITALS: BP 108/69; PULSE 87; RESP 18; TEMP 97.9; O2SAT 95
[2016-10-17] MEDS: SERTRALINE HCL 50 MG TAB PO SCH (08:32)
[2016-10-17] MEDS: MULTIVIT/MIN/PREN/FOL AC/IRON PRENATAL TAB PO SCH (08:32)
--- NOTE | 2016-10-17 09:55 | HHI.PYPN ---
Subjective Remarks Patient seen in [place] with family practice resident shannon, chart review, patient mood is upbeat smiling today making minimal comment concerning the meeting with her yesterday. She continues to work with counselor on exploring varus placement options, for now continue treatment no change Review of Systems Except as stated in HPI: all other systems reviewed are Neg Objective Alert: Yes [place]: Person (once again O x 3), Place, Date, Situation Mood: Calm Affect: Restricted Memory Intact: Comment (intact) Hallucinations: Other (none) Delusions: No Delusion Type: Other (no delusions) Suicidal: Ideation (denies) Homicidal: Ideation (no HI) Insight/Judgement Poor to fair Labs Test 10/16/16 10/16/16 11:46 17:10 Glucose 1 Hour Challenge 157 MG/DL Chlamydia trachomatis DNA NOT DETECTED (PCR) Neisseria gonorrhoeae DNA NOT DETECTED (PCR) Vitals/IOs Vital Signs Date Time Temp Pulse Resp B/P Pulse Ox O2 Delivery O2 Flow Rate FiO2 10/17/16 05:41 97.9 87 18 108/69 95 Assessment & Plan Problem List: (1) Major depressive disorder, recurrent severe without psychotic features ICD Code: F33.2 (2) ICD Code: Z33.1 Assessment & Plan Estimated LOS: days patient continues somewhat depressed though calm cooperative continue to work with us related placement issues. However patient showing minimal affect when discussing our meeting with her yesterday Justification for Cont. Inpt. At this time patient would decompensate if placed in the lower level of care Discharge Planning To be determined Request HC Surrog/Guard Advoc?: No Problem Qualifiers (1) : Qualified Code: Z33.1 - , unspecified gestational age Rolo Lamar MD Oct 17, 2016 09:55
--- NOTE | 2016-10-17 11:37 | PD.CONS ---
History & Physical H&P OBGYN CONSULT PROGRESS NOTE Subjective: 35 year-old at 26/3 by late 2nd trimester ultrasound (dated 23.2 on 09/25, [employer] 01/19/17) with no acute complaints Feels baby move, denies vaginal bleeding, denies loss of fluid. Eating, voiding, stooling, ambulating without difficulty Denies headache, shortness of breath, chest pain, calf pain. Requesting tubal ligation. Discussed different contraceptive options- patient would still prefer to obtain tubal ligation. Per pt, pending establishment of psychiatric outpatient follow up 1-2x/week Asks about follow up OB care- her [facility]- she has no PCP or OBGYN- asks if could also be seen by [facility] FHR: (10/17): 162 beats/min (normal 110-160) (10/16): 130 Objective Vital Signs 3 Date Time Temp Pulse Resp B/P Pulse Ox O2 Delivery O2 Flow Rate FiO2 10/17/16 05:41 97.9 87 18 108/69 95 Physical Exam CONST: Adult gravid female in no acute distress CV: Radial pulse 2+. Regular rate. RESP: Breathing well on room air. GI: Abdomen soft, gravid. FHR: 162 MSK: No peripheral edema or calf pain PSYCH: Affect appears more energetic, minimally restricted. Smiles during exam. Discussing future plans. Assessment/Plan 35 year-old @26/3 weeks by late 2nd trimester U/S (KYLIE 01/19/17 ) hospitalized 09/06/17 for issues of depression and found with incidental . complicated by AMA, tobacco use, late to care Desires tubal ligation 1. Intrapartum , 26 weeks gestation -Continue supportive care -Repeat US BPP >14 weeks on 10/23/16 (order has been placed) -Chl/Gonorrorhea PCR returned negative, results discussed with patient -Hep B neg, HIV neg, RPR immune, VZV immune -Mother blood type A+, antibody negative, RhoGAM not indicated -Prior vaginal births, anticipate vaginal delivery at term 2. Abnormal 1 hour GTT -GTT 1 hour returned elevated at 157 -Requires 3 hour GTT tomorrow AM NPO after midnight. Must be fasting test. Timed for 6am. Take fasting serum blood glucose (no fingerstick). Give glucose drink. Draw serum blood glucose (no fingerstick) at 1hr, 2hr, and 3rd measurements DW: Dr Abad, Nancy Blair MD R1 Oct 17, 2016 11:37
[2016-10-17 18:00] VITALS: BP 113/61; PULSE 88; RESP 18; TEMP 98.2; O2SAT 98
[2016-10-17] MEDS: ARIPiprazole 10 MG TAB PO SCH (20:45)
[2016-10-17] MEDS: diphenhydrAMINE HCL 50 MG CAP PO PRN (20:46)
[2016-10-17] MEDS: hydrOXYzine HCL 50 MG TAB PO PRN (20:46)
[2016-10-18 05:53] VITALS: PULSE 88; RESP 17; TEMP 98.4
[2016-10-18 07:29] LABS: HEMATOCRIT 31.5 % (35.0-46.0); MEAN CELL VOLUME 90.1 FL (80.0-100.0); MEAN CORPUSCULAR HEMOGLOBIN 31.2 PG (27.0-34.0); MEAN CORPUSCULAR HGB CONC 34.6 % (32.0-36.0); PLATELET COUNT 245 TH/MM3 (150-450); RED BLOOD COUNT 3.49 MIL/MM3 (4.00-5.30); RED CELL DISTRIBUTION WIDTH 13.2 % (11.6-17.2); REVIEW FLAG FINAL; WHITE BLOOD COUNT 7.9 TH/MM3 (4.0-11.0)
--- NOTE | 2016-10-18 10:44 | HHI.PYPN ---
Subjective Remarks Patient seen in [place] with medical student Gia, patient continues to work with us related to finding appropriate placement. She denies suicidality homicidality voices or visions. Is been compliant with her medications Review of Systems Except as stated in HPI: all other systems reviewed are Neg Objective Alert: Yes [place]: Person (once again O x 3), Place, Date, Situation Mood: Calm Affect: Restricted Memory Intact: Comment (intact) Hallucinations: Other (none) Delusions: No Delusion Type: Other (no delusions) Suicidal: Ideation (denies) Homicidal: Ideation (no HI) Insight/Judgement Poor to fair Labs Test 10/18/16 06:56 White Blood Count 7.9 TH/MM3 Red Blood Count 3.49 MIL/MM3 Hemoglobin 10.9 GM/DL Hematocrit 31.5 % Mean Corpuscular Volume 90.1 FL Mean Corpuscular Hemoglobin 31.2 PG Mean Corpuscular Hemoglobin 34.6 % Concent Red Cell Distribution Width 13.2 % Platelet Count 245 TH/MM3 Mean Platelet Volume 7.8 FL Glucose Tolerance Test Verified Vitals/IOs Vital Signs Date Time Temp Pulse Resp B/P Pulse Ox O2 Delivery O2 Flow Rate FiO2 10/18/16 05:53 98.4 88 17 10/17/16 18:00 98 Assessment & Plan Problem List: (1) Major depressive disorder, recurrent severe without psychotic features ICD Code: F33.2 (2) ICD Code: Z33.1 Assessment & Plan Estimated LOS: days patient's mood continues to improve, patient continues to work with us related to placement issues. However this is become more problematic. Need to look at all possible options Justification for Cont. Inpt. At this time patient would decompensate if placed in a lower level of care Discharge Planning To be determined Request HC Surrog/Guard Advoc?: No Problem Qualifiers (1) : Qualified Code: Z33.1 - , unspecified gestational age Rolo Lamar MD Oct 18, 2016 10:44
[2016-10-18] MEDS: SERTRALINE HCL 50 MG TAB PO SCH (11:17)
[2016-10-18] MEDS: MULTIVIT/MIN/PREN/FOL AC/IRON PRENATAL TAB PO SCH (11:18)
[2016-10-18] MEDS ORDERED: ARIP1TAB12 PO (12:43)
[2016-10-18] MEDS ORDERED: ZOLO50TA PO (12:43)
[2016-10-18] MEDS ORDERED: PREN29TA PO (12:43)
--- NOTE | 2016-10-18 12:49 | HHI.DS ---
Psychiatry Discharge Summary Inpatient Psychiatric care?: Yes Advance Directive: No Reason Not Provided: refused Mental Health AdvanceDirective: No Health Care Proxy: No Admission Admission Date Sep 06, 2016 at 11:14 Admission Diagnosis: (1) Major depressive disorder, recurrent severe without psychotic features ICD Code: F33.2 Brief History Patient is a 35-year-old white female comes to the emergency department voluntarily with 2-3 month history of increased depression, with marked tearfulness, depressed mood, productive sleep marked decreased energy. Decreased appetite, decreased concentration and attention, decreased coping skills, with some social isolation, she denies voices or visions with this, denies self-medication, is vague about suicidality relating it to the possibility of her leaving in taking her 2-year-old and 1-year-old children. Of interest the patient is also with her last menstrual period being 07/2016. There is also significant stress in the fact that she feels her is a compulsive gambler, which he denies, though he plays poker, this is led to the [place] foreclosures on at least 3-4 prior homes and that she was given an eviction notice 2 days before crispness in the most recent dwelling. She has been staying with her uncle with her children until this episode and now and 2 small children are staying with 's mother She feels she is unable to carry this and is considering a therapeutic termination of the . Patient has a history of depression was hospitalized briefly in 2009 around the time of the of her biological father. She does deny any prior alcohol or drug use. Denies any prior suicide attempts. 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 She does acknowledge having a 12-year-old son is living with the maternal grandmother, she has a 2-year-old wonderful child by this gentleman who are now staying with his mother. Patient denies any physical or sexual abuse. She does acknowledge mental health problems in the family stating her father brother. At the present time patient does meet criteria for involuntary inpatient psychiatric hospitalization. I feel there is a high risk for suicidal behaviors or attempts. There needs to be significant counseling with her and with her . We will have [employer] consult related to the . Will start the patient on Zoloft 25 mg daily with intent to increase it after a few days if she tolerates it. Will add Atarax for anxiety. Benadryl for sleep. Will refrain from any substances of abuse. Tobacco Use In Past 30 Days: No Tobacco Past 30 Days Alcohol Use: Never Hospital Course Patient's initial suicidality depression slowly resolving that she became compliant with medications, adapted to the unit, was able to process relationship issues with her mother, [id number], and . There was further examination assessment of her which was further along in gestation them initially thought. Through multiple visits with family and is determined that patient did not have any type of placement of the community with family members. Patient was willing to go to any type of [facility] residential facility to assist her with maintaining state ability through the . And also to allow her to explore counseling with her and other family members. After my initial note from this morning they found a placement for this lady at [facility] in [place] there is a bed available today. Patient is quite willing to open excited to continue on with her recovery. Thus patient will be discharged today to [facility] to follow [place] act, patient given a one-month supply of medications. Counselor to assist in making OB referral Results Blood Pressure 113 / 61 Vital Signs Date Time Temp Pulse Resp B/P Pulse Ox O2 Delivery O2 Flow Rate FiO2 10/18/16 05:53 98.4 88 17 10/17/16 18:00 98 Laboratory Tests Test 10/16/16 10/18/16 11:46 06:56 Glucose 1 Hour Challenge 157 MG/DL (74-139) Red Blood Count 3.49 MIL/MM3 (4.00-5.30) Hemoglobin 10.9 GM/DL (11.6-15.3) Hematocrit 31.5 % (35.0-46.0) Summary of Procedures None none Pending results at discharge: No Medications # of Antipsychotic meds at D/C: 1 Approp Antipsych med options 1 - Minimum of three failed multiple trials of monotherapy. 2 - Documented plan to taper to monotherapy due to previous use of multiple meds OR cross-taper in progress at D/C. 3 - Documentation of augmentation of Clozapine. 4 - Justification other than those listed in allowable values 1-3, document here : Discharge Discharge Date: Oct 18, 2016 Discharge Diagnosis: (1) Major depressive disorder, recurrent severe without psychotic features ICD Code: F33.2 Mental Status Exam at Disch Alert oriented white female, normal active, her mood is euthymic affect showed good range of motion intensity is mildly dysphoric, speech rate and rhythm within normal limits though no formal thought disorders auditory or visual hallucinations no delusions noted. Insight and judgment is fair a month cognition grossly intact Pt Condition on Discharge: Stable Discharge Disposition: Discharge Home Discharge Instructions Diet Instructions: As Tolerated, No Restrictions Activities you can perform: Regular-No Restrictions Scheduled Appointment: Tariq Noonan Discharge Time > 30 minutes Discharge/Advance Care Plan Health Problems: (1) Major depressive disorder, recurrent severe without psychotic features (2) Goals to promote your health * To prevent worsening of your condition and complications * To maintain your health at the optimal level Directions to meet your goals Take your medications as prescribed Follow your dietary instruction Follow activity as directed Keep your appointments as scheduled Take your immunizations and boosters as scheduled If your symptoms worsen call your PCP, if no PCP go to Urgent Care Center or Emergency Room For 01/04 questions related to your inpatient stay or results of tests pending at discharge, please contact Dr. Rolo Lamar at Smoking is Dangerous to Your Health. Avoid second hand smoking Rolo Lamar MD Oct 18, 2016 12:49
--- NOTE | 2016-10-18 16:22 | HHI.FPPN ---
Addendum to progress note ADDENDUM Reason for addendum: Additonal documentation Additional information Attempted to contact patient at given number ([phone]) at 4pm to discuss follow up [facility]. A man answered phone, confirmed phone number, and said that the previous number was in error and did not belong to Bruno Wu. Patient information is incorrect and needs to be updated. Nancy Sanchez MD R1 Oct 18, 2016 16:22
== END 2016-10-18 15:35 | disposition home or self-care (01) | DRG 781 ==
LOC: NEPJ 12:49 → NEDA 09-06 11:14 → H260 09-06 12:15
PROVIDERS: ADMIT Psychiatry & Neurology Psychiatry; ATTEND Psychiatry & Neurology Psychiatry
DX: O99.342 Other mental disorders complicating pregnancy, second trimester (principal); F33.2 Major depressive disorder, recurrent severe without psychotic features; R45.851 Suicidal ideations; F25.0 Schizoaffective disorder, bipolar type; F41.9 Anxiety disorder, unspecified; F60.9 Personality disorder, unspecified; O99.332 Smoking (tobacco) complicating pregnancy, second trimester; O09.522 Supervision of elderly multigravida, second trimester; F60.3 Borderline personality disorder; O09.32 Supervision of pregnancy with insufficient antenatal care, second trimester; F17.210 Nicotine dependence, cigarettes, uncomplicated; Z3A.23 23 weeks gestation of pregnancy; Z59.0 Homelessness; Z63.5 Disruption of family by separation and divorce; Z81.8 Family history of other mental and behavioral disorders; Z88.5 Allergy status to narcotic agent
CPT/HCPCS: 76805; 80048; 80053; 80061; 80074; 80301; 80320; 81001; 82306; 82951; 82952; 83036; 84443; 84702; 85025; 85027; 86592; 86703; 86762; 86787; 86850; 86900; 86901; 87086; 87491; 87591; 99284; G0479; Q0163

== ENCOUNTER 2016-11-27 13:36 | Emergency (ER) | payer MEDICAID, OTHER ==
[~2016-11-27 13:36] MED LIST changes: +ARIP1TAB12 PO; -CYCL1TAB29 PO; -IBUP800T23 PO; -PRED50 PO; +PREN29TA PO; +ZOLO50TA PO
--- NOTE | 2016-11-27 14:20 | PD ---
HPI Chief Complaint vaginal discharge, possible rupture of membranes Date Seen: Nov 27, 2016 Time Seen: 14:16 Travel History International Travel<30 Days: No Contact w/Intl Traveler<30Days: No Known Affected Area: No History of Present Illness HPI 35 yo at 35-36 weeks gestation here for fluid per vagina since yesterday. Denies contractions, vaginal pain, or bleeding. Para: 3 : 4 History Past Medical History Medical History: Denies Significant Hx Obstetric History Obstetric History x 3 Past Surgical History Narrative Surgical chest and wrist surgery Family History Family History: Negative Social History Alcohol Use: No Tobacco Use: No Substance Abuse: No Allergies-Medications (Allergen,Severity, Reaction): Coded Allergies: Codeine (Verified Allergy, Severe, Hives, 09/05/16) Morphine (Verified Allergy, Severe, Anaphylaxis, 09/05/16) Home Meds Active Scripts Sertraline (Zoloft)50 Mg Tab75 Mg PO 1 1/2 daily #45 TAB Ref 0 Prov:Rolo Lamar MD 10/18/16 Vit-Iron Carbonyl ( Plus Iron 29-1 mg)1 Tab Tab1 Tab PO DAILY #30 TAB Ref 0 Prov:Rolo Lamar MD 10/18/16 Aripiprazole 10 Mg Tab10 Mg PO HS #30 TAB Ref 0 Prov:Rolo Lamar MD 10/18/16 Review of Systems Except as stated in HPI: all other systems reviewed are Neg Physical Exam Narrative GENERAL: Well-nourished, well-developed patient. SKIN: Warm and dry. HEAD: Normocephalic and atraumatic. EYES: No scleral icterus. No injection or drainage. ENT: No nasal drainage noted. Mucous membranes pink. Airway patent. NECK: Supple, trachea midline. No JVD. CARDIOVASCULAR: Regular rate and rhythm without murmurs, gallops, or rubs. RESPIRATORY: Breath sounds equal bilaterally. No accessory muscle use. BREASTS: Bilateral exam showed no masses , no retractions, no nipple discharge. ABDOMEN/GI: Abdomen soft, non-tender, bowel sounds present, no rebound, no guarding Gravid to [-35] weeks size Fundal Height: [35-] GENITOURINARY: External Genitalia: intact and normal in appearance. Grade 2 cystocele noted BUS glands: [-nl] Cervix: [cl-] Dilatation: [0-] Effacement: [-50] Station: [--3] Presentation: [vtx-] Membranes: [intact with negative amnisure Uterine Contractions: [none-] FHT's: Category: [-1] Baseline: [145-] Reactive: [-mod] Variability: [-mod] Decels: [-absent] EXTREMITIES: No cyanosis or edema. BACK: Nontender without obvious deformity. No CVA tenderness. NEUROLOGICAL: Awake and alert. Motor and sensory grossly within normal limits. Five out of 5 muscle strength in all muscle groups. Normal speech. Data Data Vital Signs Reviewed: Yes [facility] Medical Record Reviewed: Yes Plan Normal exam no signs of labor or rupture of membranes Diagnosis Diagnosis: Primary Impression: Intact amniotic membranes during in third trimester Additional Impressions: Vaginal discharge during in third trimester Cystocele affecting in third trimester 35 weeks gestation of Disposition: 01 DISCHARGE HOME Carol Valdes MD Nov 27, 2016 14:20
== END 2016-11-27 14:30 | disposition home or self-care (01) ==
LOC: HOBED 13:36
DX: O34.83 Maternal care for other abnormalities of pelvic organs, third trimester (principal); N81.10 Cystocele, unspecified; Z3A.35 35 weeks gestation of pregnancy
CPT/HCPCS: 59025; 84112

== ENCOUNTER 2016-12-09 16:04 | Emergency (ER) | payer MEDICAID ==
[2016-12-09 16:16] VITALS: BP 139/83; PULSE 123
[2016-12-09 16:30] VITALS: RESP 18; TEMP 98.1
--- NOTE | 2016-12-09 16:34 | PD.LABORPN ---
Subjective Subjective NST/BPP report Indications: IUP at 36.6, tobacco use, depression, anxiety, use of abilify Baseline: 140s Variability: moderate Other: good accels, no decels Reactive: yes FM: >3 discrete gross FM seen CHRYSTAL 17.74 Fluid: 9.6, 5.31, 1.1, 1.73 Breathing: >30sec continuous breathing Active flexion/extension noted (several episodes) Final dx: IUP at 36.6, tobacco use, depression, anxiety, use of abilify/zoloft, false labor, reassuring testing with reactive NST and BPP 06/18, FHR reassuring and appropriate for gestational age F/U: as clinically indicated Lizabeth Baum MD Dec 09, 2016 16:34 Uterine Contractions: [-] FHT's: Category: [-] Baseline: [-] Reactive: [-] Variability: [-] Decels: [-] Lizabeht Baum MD Dec 09, 2016 16:34
[2016-12-09] MEDS ORDERED: DEXT 5%-NACL 0.45% 1000 ML INJ 1,000 ML IV SCH (16:38)
--- NOTE | 2016-12-09 16:43 | PD ---
HPI Chief Complaint ctx Date Seen: Dec 09, 2016 Travel History International Travel<30 Days: No Contact w/Intl Traveler<30Days: No Known Affected Area: No History of Present Illness HPI 35y/o , IUP at 36.6 complicated by: 1. Depression 2. Anxiety 3. Inpatient psych admission 4. Tobacco use 5. Taking zoloft/abilify Patient presents c/o onset of painful ctx about 1/5-2h prior to arrival. She reports these cx are every few minutes and have increased in intensity and frequency. She denies any aggravating or alleviating factors. There have been no attempted treatments. She reports normal FM. She denies any LOF or VB. There are no other OB complaints Para: 3 : 4 History Past Medical History Narrative Medical Anxiety Depression Obstetric History Obstetric History 3 FT Denies h/o abnl PAP or STD Past Surgical History Narrative Surgical Pectus excavatum surgery L wrist surgery Social History Alcohol Use: No Tobacco Use: Yes Substance Abuse: No Allergies-Medications (Allergen,Severity, Reaction): Coded Allergies: Codeine (Verified Allergy, Severe, Hives, 09/05/16) Morphine (Verified Allergy, Severe, Anaphylaxis, 09/05/16) Home Meds Active Scripts Sertraline (Zoloft)50 Mg Tab75 Mg PO 1 1/2 daily #45 TAB Ref 0 Prov:Rolo Lamar MD 10/18/16 Vit-Iron Carbonyl ( Plus Iron 29-1 mg)1 Tab Tab1 Tab PO DAILY #30 TAB Ref 0 Prov:Rolo Lamar MD 10/18/16 Aripiprazole 10 Mg Tab10 Mg PO HS #30 TAB Ref 0 Prov:Rolo Lamar MD 10/18/16 Review of Systems Except as stated in HPI: all other systems reviewed are Neg Physical Exam Vital Signs Date Time Temp Pulse Resp B/P Pulse Ox O2 Delivery O2 Flow Rate FiO2 12/09/16 16:30 98.1 18 12/09/16 16:16 123 139/83 Narrative GENERAL: Well-nourished, well-developed patient. A&Ox3 SKIN: Warm and dry. HEAD: Normocephalic and atraumatic. EYES: No scleral icterus. No injection or drainage. ENT: No nasal drainage noted. Mucous membranes pink. Airway patent. NECK: Supple, trachea midline. CARDIOVASCULAR: Regular rate and rhythm without murmurs, gallops, or rubs. RESPIRATORY: Breath sounds equal bilaterally. No accessory muscle use. BREASTS: deferred ABDOMEN/GI: Abdomen soft, non-tender, bowel sounds present, no rebound, no guarding Gravid GENITOURINARY: External Genitalia: intact and normal in appearance BUS glands: nl Cervix: closed, no cervical/vaginal masses, physiologic d/c, SVE 2/thick/ high and very posterior. SVE unchanged in >1h from initial exam. Membranes: Intact Uterine Contractions: decreased with hydration FHT's: Category: 1 Baseline: 130s Reactive:Reactive Variability: moderate LTV, good accels/no decels, BPP at bedside by MD with BPP 10/10 EXTREMITIES: No cyanosis or edema. BACK: Nontender without obvious deformity. Psych grossly normal memory/affect MS grossly normal ROM, gait, muscle strength NEUROLOGICAL: Awake and alert. Motor and sensory grossly within normal limits. Five out of 5 muscle strength in all muscle groups. Normal speech. Data Data Orders Vital Signs (Adult) .ON ADMISSION (12/09/16 16:38) ^ Labor Status (12/09/16 16:38) Urinalysis - C+S If Indicated (12/09/16 16:38) ^ Hydration (12/09/16 16:38) Dext 5%-Nacl 0.45% 1000 Ml Inj (D5w-1/2 (12/09/16 16:38) MDM Plan A/P: 35y/o 1. IUP at 36.6 2. ctx: no evidence of PTL, ctx decreased with hydration. No change in cervical exam and cervix 2/thick/posterior. Strict PTL precautions. 3. Tobacco use 4. Anxiety/depression: on zoloft/abilify 5. wellbeing: reassuring testing, patient reports normal movement at the time of d/c, and BPP 10/10. NST reassuring and appropriate for gestational age and reactive. FKC daily. 6. F/U with Dr. Cook in 2-3d or sooner if needed Diagnosis Diagnosis: Primary Impression: 36 weeks gestation of Additional Impression: False labor before 37 completed weeks of gestation Disposition: 01 DISCHARGE HOME Condition: Good Patient Instructions: Movement (ED), Labor (ED) Additional Instructions: F/U with Dr. Blanco in 2-3d or sooner if needed. PTL precatuions. [facility] daily. Strict PTL precautions. Lizabeth Baum MD Dec 09, 2016 16:43
[2016-12-09 16:58] LABS: BLOOD, URINE NEG (NEG); COMMENT (UR) CULT NOT INDICATED; CULTURE IF INDICATED CULT NOT INDICATED; GLUCOSE,URINE NEG (NEG); KETONE, URINE NEG (NEG); MUCUS URINE FEW /lpf (OCC); NITRITE,URINE NEG (NEG); SQUAMOUS EPITHELIAL CELL URINE 3 /hpf (0-5); URINE COLOR YELLOW (YELLW/STRAW)
== END 2016-12-09 18:04 | disposition home or self-care (01) ==
LOC: HOBED 16:04
DX: O47.03 False labor before 37 completed weeks of gestation, third trimester (principal); Z3A.36 36 weeks gestation of pregnancy; O99.333 Smoking (tobacco) complicating pregnancy, third trimester
CPT/HCPCS: 76815; 81001

== ENCOUNTER 2016-12-12 23:43 | Emergency (ER) | payer MEDICAID ==
[2016-12-13] MEDS ORDERED: LACTATED RINGER'S 1000 ML INJ 1,000 ML IV SCH (01:00)
[2016-12-13 01:02] LABS: HEMATOCRIT 30.4 % (35.0-46.0); MEAN CELL VOLUME 85.9 FL (80.0-100.0); MEAN CORPUSCULAR HEMOGLOBIN 28.5 PG (27.0-34.0); MEAN CORPUSCULAR HGB CONC 33.1 % (32.0-36.0); PLATELET COUNT 378 TH/MM3 (150-450); RED BLOOD COUNT 3.54 MIL/MM3 (4.00-5.30); RED CELL DISTRIBUTION WIDTH 13.3 % (11.6-17.2); REVIEW FLAG FINAL; WHITE BLOOD COUNT 13.1 TH/MM3 (4.0-11.0)
[2016-12-13 01:08] LABS: BACTERIA, URINE OCC /hpf; BLOOD, URINE NEG (NEG); COMMENT (UR) CULT NOT INDICATED; CULTURE IF INDICATED CULT NOT INDICATED; GLUCOSE,URINE NEG (NEG); KETONE, URINE TRACE mg/dL (NEG); MUCUS URINE FEW /lpf (OCC); NITRITE,URINE NEG (NEG); PH, URINE 6.5 (5.0-8.5); SQUAMOUS EPITHELIAL CELL URINE 9 /hpf (0-5); URINE COLOR YELLOW (YELLW/STRAW)
[2016-12-13 01:10] LABS: AMPHETAMINE, URINE NEG (NEG); BARBITURATES, URINE NEG (NEG); COCAINE, URINE NEG (NEG)
[2016-12-13 01:13] LABS: ALT (GPT) 15 U/L (10-53); ANION GAP 10 MEQ/L (5-15); AST (GOT) 11 U/L (15-37); BICARBONATE 24.3 MEQ/L (21.0-32.0); BLOOD UREA NITROGEN 5 MG/DL (7-18); CHLORIDE 106 MEQ/L (98-107); GLOMERULAR FILTRATION RATE 150 ML/MIN (>89); POTASSIUM 3.7 MEQ/L (3.5-5.1); SODIUM (NA) 140 MEQ/L (136-145)
[2016-12-13 01:15] LABS: ALKALINE PHOSPHATASE 127 U/L (45-117); TOTAL BILIRUBIN ADULT 0.2 MG/DL (0.2-1.0)
--- NOTE | 2016-12-13 01:35 | PD ---
HPI Chief Complaint Right-sided abdominal pain and flank pain Date Seen: Dec 13, 2016 Time Seen: 12:30 Travel History International Travel<30 Days: No Contact w/Intl Traveler<30Days: No Known Affected Area: No History of Present Illness HPI This patient is a 35-year-old white female at 37 weeks who presents clinically right-sided abdominal pain and right flank pain sharp worse when she moves. She denies bleeding or rupture the membranes. Baby is active heart rate tracing is reactive and she is not yamilet. She is a Dr. Cook for care Para: 3 : 4 History Obstetric History Obstetric History 3 vaginal deliveries Social History Alcohol Use: No Tobacco Use: Yes Substance Abuse: No Allergies-Medications (Allergen,Severity, Reaction): Coded Allergies: Codeine (Verified Allergy, Severe, Hives, 09/05/16) Morphine (Verified Allergy, Severe, Anaphylaxis, 09/05/16) Home Meds Active Scripts Sertraline (Zoloft)50 Mg Tab75 Mg PO 1 1/2 daily #45 TAB Ref 0 Prov:Rolo Lamar MD 10/18/16 Vit-Iron Carbonyl ( Plus Iron 29-1 mg)1 Tab Tab1 Tab PO DAILY #30 TAB Ref 0 Prov:Rolo Lamar MD 10/18/16 Aripiprazole 10 Mg Tab10 Mg PO HS #30 TAB Ref 0 Prov:Rolo Lamar MD 10/18/16 Review of Systems General / Constitutional: No: Fever, Weight Gain, Chills, Other Eyes: No: Diploplia, Blurred Vision, Visual changes, Pain, Photophobia HENT: No: Headaches, Vertigo, Lightheadedness Cardiovascular: No: Irregular Rhythm, Chest Pain or Discomfort, Palpitations, Tachycardia, Syncope, Varicosities, Edema, Cyanosis Respiratory: No: Cough, Short of Breath, Other Gastrointestinal: Abdominal Pain, No: Nausea, Vomiting, Diarrhea Genitourinary: No: Decreased Urinary Output, Oliguria Musculoskeletal: No: Limited ROM, Weakness, Cramping, Edema, Pain Skin: No Rash, No Itching, No Dryness, No Lumps, No Change in Pigmentation, No Change in Nails, No Alopecia, No Lesions Neurologic: No: Weakness, Dizziness, Syncope, Focal Abnormalities, Coordination Problem, Headache, Slurred Speech, Seizures Psychiatric: No: Depression, Suicidal Ideations, Homicidal Ideation Endocrine: No: Heat Intolerance, Cold Intolerance, Polydipsia, Polyuria, Other Physical Exam Narrative GENERAL: Well-nourished, well-developed patient. SKIN: Warm and dry. HEAD: Normocephalic and atraumatic. EYES: No scleral icterus. No injection or drainage. ENT: No nasal drainage noted. Mucous membranes pink. Airway patent. NECK: Supple, trachea midline. No JVD. CARDIOVASCULAR: Regular rate and rhythm without murmurs, gallops, or rubs. RESPIRATORY: Breath sounds equal bilaterally. No accessory muscle use. BREASTS: Bilateral exam showed no masses , no retractions, no nipple discharge. ABDOMEN/GI: Abdomen soft, tender, bowel sounds present, no rebound, no guarding ,+ CVAT bilat Gravid to [37-] weeks size Fundal Height: [-37] GENITOURINARY: External Genitalia: intact and normal in appearance BUS glands: [-] Cervix: [-2] Dilatation: [-2] Effacement: [-50] Station: [-3] Presentation: [vtx-] Membranes: [intact ] Uterine Contractions: [-none] FHT's: Category: [1-] Baseline: [133-] Reactive: [-yes] Variability: [mod-] Decels: [none-] EXTREMITIES: No cyanosis or edema. BACK: Nontender without obvious deformity. No CVA tenderness. NEUROLOGICAL: Awake and alert. Motor and sensory grossly within normal limits. Five out of 5 muscle strength in all muscle groups. Normal speech. Data Data Orders Vital Signs (Adult) .ON ADMISSION (12/13/16 00:29) ^ Labor Status (12/13/16 00:29) Urinalysis - C+S If Indicated (12/13/16 00:29) Cbc No Diff, Includes Plts (12/13/16:29) Comprehensive Metabolic Panel (12/13/16:29) Lactated Ringer's 1000 Ml Inj (Lr 1000 M (12/13/16 01:00) Ob/Psych Drug Screen, Urine (12/13/16 00:29) Fentanyl Inj (Fentanyl Inj) (12/13/16 00:30) Ur Bath Salts (12/13/16 00:02) Ur Heroin (12/13/16 00:02) Ur K2 Spice (12/13/16 00:02) Ur Ecstasy (12/13/16 00:02) Ur Methadone (12/13/16 00:02) Phencyclidine Urine (Pcp) (12/13/16 00:02) Labs Laboratory Tests Test 12/13/16 12/13/16 00:02 00:45 Urine Color YELLOW Urine Turbidity HAZY Urine pH 6.5 Urine Specific [place] 1.023 Urine Protein TRACE Urine Glucose (UA) NEG Urine Ketones TRACE Urine Occult Blood NEG Urine Nitrite NEG Urine Bilirubin NEG Urine Urobilinogen 2.0 Urine Leukocyte Esterase TRACE Urine RBC 2 Urine WBC 3 Urine Squamous Epithelial 9 Cells Urine Amorphous Sediment RARE Urine Bacteria OCC Urine Mucus FEW Microscopic Urinalysis Comment CULT NOT INDICATED Urine Opiates Screen NEG Urine Barbiturates Screen NEG Urine Amphetamines Screen NEG Urine Benzodiazepines Screen NEG Urine Cocaine Screen NEG Urine Cannabinoids Screen NEG White Blood Count 13.1 Red Blood Count 3.54 Hemoglobin 10.1 Hematocrit 30.4 Mean Corpuscular Volume 85.9 Mean Corpuscular Hemoglobin 28.5 Mean Corpuscular Hemoglobin 33.1 Concent Red Cell Distribution Width 13.3 Platelet Count 378 Mean Platelet Volume 8.3 Sodium Level 140 Potassium Level 3.7 Chloride Level 106 Carbon Dioxide Level 24.3 Anion Gap 10 Blood Urea Nitrogen 5 Creatinine 0.47 Estimat Glomerular Filtration 150 Rate Random Glucose 98 Calcium Level 8.4 Total Bilirubin 0.2 Aspartate Amino Transf 11 (AST/SGOT) Alanine Aminotransferase 15 (ALT/SGPT) Alkaline Phosphatase 127 Total Protein 6.7 Albumin 2.5 MDM Interpretation(s) This patient is a 35-year-old white female 37 weeks presents combining of right sided abdominal pain and right flank pain to the last day sharp and worsening with movement or coughing which she's been doing a lot coughing, there is no ruptured membranes no labor no bleeding. heart rate tracing is reactive and no contractions noted. On exam she is tender on the right side but no rebound pain positive CVA tenderness just generalized tenderness in the flank and side on the right none on the left urinalysis negative ,all other lab within normal limits, blood CBC CMP she was given a liter of IV fluid and IV fentanyl for pain and this improved her situation. Plan Plan to discharge home to bedrest she can use Tylenol liberally by mouth, she can use [id number] cough medications, increase her by mouth fluid intake bedrest with a heating pad on her side resulting in a hot bath helped, she to follow-up with her ob provider is planned or sooner if symptoms persist Diagnosis Diagnosis: Primary Impression: Abdominal pain during in third trimester Additional Impression: Right flank pain Disposition: 01 DISCHARGE HOME Condition: Stable Sergey Chapa II, MD Dec 13, 2016 01:35
[2016-12-17 07:55] LABS: HEROIN (6-ACETYLMORPHINE) UR NEG (NEG); OBMETHADONE UR NEG (NEG); PHENCYCLIDINE URINE NEG (NEG)
[2016-12-17 07:56] LABS: BATH SALTS (MDPV) UR NEG (NEG); ECSTASY (MDMA) UR NEG (NEG); K2 SPICE UR NEG (NEG); OXYCODONE (PERCODAN) NEG (NEG)
== END 2016-12-13 01:54 | disposition home or self-care (01) ==
LOC: HOBED 23:43
DX: O26.893 Other specified pregnancy related conditions, third trimester (principal); R10.9 Unspecified abdominal pain; Z72.0 Tobacco use; Z3A.37 37 weeks gestation of pregnancy
CPT/HCPCS: 80053; 80307; 81001; 85027; 96374; 99284; G0481; J3010; J7120

== ENCOUNTER 2016-12-18 17:01 | Inpatient (IN) | payer MEDICAID ==
[2016-12-18] VITALS (26 sets, daily range): BP systolic 89–136; BP diastolic 51–83; PULSE 87–112; RESP 0–18; TEMP 97.7–98
[~2016-12-18] VITALS: Ht 165.1 cm; Wt 83.5 kg
[2016-12-18] MEDS ORDERED: LACTATED RINGER'S 1000 ML INJ 1,000 ML IV PRN (18:18)
[2016-12-18] MEDS ORDERED: LACTATED RINGER'S 1000 ML INJ 1,000 ML IV SCH (18:18)
--- NOTE | 2016-12-18 18:27 | HHI.HP ---
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 PNC also complicated by severe MDD which resulted in prolonged hospitalization at [facility] She is on abilify and zoloft and has done well since discharge. GBS + Hx x 3. Para: 3 : 4 Last Menstrual Period: Dec 18, 2016 History Past Medical History Narrative Medical Severe MDD with psychotic break and hospitalization during Past Surgical History Narrative Surgical childhood surgery for pectus excavatum Social History Alcohol Use: No Tobacco Use: No Substance Abuse: No Allergies-Medications (Allergen,Severity, Reaction): Coded Allergies: Codeine (Verified Allergy, Severe, Hives, 09/05/16) Morphine (Verified Allergy, Severe, Anaphylaxis, 09/05/16) Home Meds Active Scripts Sertraline (Zoloft)50 Mg Tab75 Mg PO 1 1/2 daily #45 TAB Ref 0 Prov:Rolo Lamar MD 10/18/16 Vit-Iron Carbonyl ( Plus Iron 29-1 mg)1 Tab Tab1 Tab PO DAILY #30 TAB Ref 0 Prov:Rolo Lamar MD 10/18/16 Aripiprazole 10 Mg Tab10 Mg PO HS #30 TAB Ref 0 Prov:Rolo Lamar MD 10/18/16 Review of Systems HENT: Headaches Genitourinary: Pelvic Pain Musculoskeletal: Cramping Psychiatric: Anxiety, Depression, Suicidal Ideations, Disorder of Thought, Mood Disorder Physical Exam Narrative GENERAL: Well-nourished, well-developed patient. SKIN: Warm and dry. HEAD: Normocephalic and atraumatic. EYES: No scleral icterus. No injection or drainage. ENT: No nasal drainage noted. Mucous membranes pink. Airway patent. NECK: Supple, trachea midline. No JVD. CARDIOVASCULAR: Regular rate and rhythm without murmurs, gallops, or rubs. RESPIRATORY: Breath sounds equal bilaterally. No accessory muscle use. BREASTS: Bilateral exam showed no masses , no retractions, no nipple discharge. ABDOMEN/GI: Abdomen soft, non-tender, bowel sounds present, no rebound, no guarding Gravid to [-] weeks size Fundal Height: [-] GENITOURINARY: External Genitalia: intact and normal in appearance BUS glands: [-] 3/80 BBOW but stenotic and irregular arom questionable Category 1 strip EXTREMITIES: No cyanosis or edema. BACK: Nontender without obvious deformity. No CVA tenderness. NEUROLOGICAL: Awake and alert. Motor and sensory grossly within normal limits. Five out of 5 muscle strength in all muscle groups. Normal speech. Data Data Orders Admit To Inpatient (12/18/16 ) Code Status (12/18/16 18:18) Vital Signs (Adult) .Per protocol (12/18/16 18:18) Activity Oob Ad Rosa (12/18/16 18:18) Amnioinfusion (12/18/16 18:18) Urinary Catheter Management .ONCE (12/18/16 18:18) Lactated Ringer's 1000 Ml Inj (Lr 1000 M (12/18/16 18:18) Lactated Ringer's 1000 Ml Inj (Lr 1000 M (12/18/16 18:18) Sodium Chlorid 0.9% 500 Ml Inj (Ns 500 M (12/18/16 18:30) Sodium Chlor 0.9% 1000 Ml Inj (Ns 1000 M (12/18/16 18:38) Lidocaine 1% Inj (50 Ml) (Xylocaine 1% I (12/18/16 18:30) Citric Acid-Sodium Citrate Liq (Bicitra (12/18/16 18:30) Ondansetron Inj (Zofran Inj) (12/18/16 18:30) Fentanyl Inj (Fentanyl Inj) (12/18/16 18:30) Fentanyl Inj (Fentanyl Inj) (12/18/16 18:30) Complete Blood Count With Diff (12/18/16 18:18) Hold Clot (12/18/16 18:18) Abo/Rh Blood Type (12/18/16 18:18) Urinalysis - C+S If Indicated (12/18/16 18:18) Resp Oxygen Non Rebreathe Mask (12/18/16 ) ^ Epidural / Intrathecal Infus (12/18/16 18:18) Oxytocin 30 Units-500ml Premix (Pitocin (12/18/16 18:30) Lidocaine 1% Inj (50 Ml) (Xylocaine 1% I (12/18/16 18:30) Light Mineral Oil (Muri-Lube Oil) (12/18/16 18:30) ^ Non Stress Test (12/18/16 18:18) Response To Medication .Post New Med Administration, Reaction (12/18/16 18:18) ^ Discontinue Medication (12/18/16 18:18) Oxytocin Drip (2-2-30) (12/18/16 18:30) Inpatient Certification (12/18/16 ) Specimen To Be Collected PRN (12/18/16 18:18) Diet Regular Basic (12/18/16 Dinner) Assessment/Plan Assessment and Plan term IUP prodromal labor hx of severe depression and psychiatric hospitalization during 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 Tanvi Cook MD Dec 18, 2016 18:27
[2016-12-18] MEDS ORDERED: OXYTOCIN 30 UNITS-500ML PREMIX 500 ML IV ONE (18:30)
[2016-12-18] MEDS ORDERED: SODIUM CHLORID 0.9% 500 ML INJ 500 ML IV PRN (18:30)
[2016-12-18] MEDS ORDERED: LIDOCAINE HCL 1% 50 ML VIAL I-DERMAL PRN (18:30)
[2016-12-18] MEDS ORDERED: ONDANSETRON HCL 4 MG/2 ML VIAL IV PRN (18:30)
[2016-12-18] MEDS ORDERED: OXYTOCIN 30 UNITS-500ML PREMIX 500 ML IV SCH (18:30)
[2016-12-18] MEDS ORDERED: MINERAL OIL 10 ML VIAL TOPICAL PRN (18:30)
[2016-12-18] MEDS ORDERED: CITRIC ACID-SODIUM CITRATE LIQ 30 ML UDC PO SCH (18:30)
[2016-12-18] MEDS ORDERED: LIDOCAINE HCL 1% 50 ML VIAL INFIL PRN (18:30)
[2016-12-18 18:35] LABS: AUTOMATED NEUTROPHIL # 8.7 TH/MM3 (1.8-7.7); BASOPHIL # 0.1 TH/MM3 (0-0.2); BASOPHIL % 0.7 % (0.0-2.0); EOSINOPHIL # 0.1 TH/MM3 (0-0.4); EOSINOPHIL % 0.9 % (0.0-4.0); HEMATOCRIT 33.8 % (35.0-46.0); HEMO FLAGS DIFF FINAL; LYMPH % 20.1 % (9.0-44.0); LYMPHOCYTE # 2.5 TH/MM3 (1.0-4.8); MEAN CELL VOLUME 86.4 FL (80.0-100.0); MEAN CORPUSCULAR HEMOGLOBIN 27.9 PG (27.0-34.0); MEAN CORPUSCULAR HGB CONC 32.2 % (32.0-36.0); MONO % 7.6 % (0.0-8.0); NEUT % 70.7 % (16.0-70.0); PLATELET COUNT 376 TH/MM3 (150-450); RED BLOOD COUNT 3.91 MIL/MM3 (4.00-5.30); RED CELL DISTRIBUTION WIDTH 13.7 % (11.6-17.2); WHITE BLOOD COUNT 12.3 TH/MM3 (4.0-11.0)
[2016-12-18] MEDS ORDERED: SODIUM CHLOR 0.9% 1000 ML INJ 1,000 ML IV PRN (18:38)
[2016-12-18 18:45] LABS: BLOOD, URINE TRACE (NEG); COMMENT (UR) CULT NOT INDICATED; CULTURE IF INDICATED CULT NOT INDICATED; GLUCOSE,URINE NEG (NEG); KETONE, URINE NEG (NEG); MUCUS URINE FEW /lpf (OCC); NITRITE,URINE NEG (NEG); SQUAMOUS EPITHELIAL CELL URINE 6 /hpf (0-5); URINE COLOR YELLOW (YELLW/STRAW)
[2016-12-18] MEDS ORDERED: PENICILLIN G POTASSIUM INJ 5,000,000 UNITS in SODIUM CHLORIDE 0.9% INJ 100 ML IV ONE ×2 (19:30→20:00)
[2016-12-18] MEDS ORDERED: fentaNYL 2MCG-BUPIV 0.125% INJ 100 ML ONE (21:27)
[2016-12-18] MEDS ORDERED: ePHEDrine/NS 25 MG/5 ML SYR ONE (21:28)
[2016-12-18] MEDS ORDERED: DO NOT ADMINISTER ANTICOAGULANTS PRN (23:15)
[2016-12-18] MEDS ORDERED: fentaNYL 2MCG-BUPIV 0.125% 100 ML EPIDURAL SCH (23:15)
[2016-12-18] MEDS ORDERED: NO SYSTEM NARCOTICS PRN (23:15)
[2016-12-18] MEDS ORDERED: ePHEDrine/NS 25 MG/5 ML SYR IV PRN (23:15)
[2016-12-19] VITALS (29 sets, daily range): BP systolic 119–134; BP diastolic 56–85; PULSE 67–111; RESP 16–18; TEMP 97.9–98.4
[2016-12-19] MEDS ORDERED: PENICILLIN G POTASSIUM INJ 2,500,000 UNITS in SODIUM CHLORIDE 0.9% INJ 100 ML IV SCH ×2
--- NOTE | 2016-12-19 02:41 | PD.OB.DELI ---
Anesthesia: Epidural Episiotomy: None Vaginal Delivery: Forceps Presentation: Occiput posterior, Brow presentation Nuchal Cord: x1 Delayed cord clamping (45 sec): Yes : Male One Minute : 7 Five Minute : 8 Placenta: Spontaneous delivery Laceration: 1 deg Repair: Chromic interrupted (unable to achieve any suction using vacuum. Ghost appication to deflexed head and then application with delivery over intact pelvis with single pull. Infant has very bruised forehead and left eye. ) Tanvi Cook MD Dec 19, 2016 02:41
[2016-12-19] MEDS ORDERED: WITCH HAZEL 50%/GLYCERIN 12.5% 40 PAD JAR TOPICAL PRN (02:45)
[2016-12-19] MEDS ORDERED: SODIUM CHLORIDE 0.9% FLUSH 10 ML FLUSH IV FLUSH PRN (02:45)
[2016-12-19] MEDS ORDERED: ACETAMINOPHEN 325 MG TAB PO PRN (02:45)
[2016-12-19] MEDS ORDERED: DOCUSATE SODIUM 50 MG/SENNA 8.6 MG TAB PO PRN (02:45)
[2016-12-19] MEDS ORDERED: oxyCODONE/ACETAMINOPHEN 5 MG/325 MG TAB PO PRN ×2 (02:45)
[2016-12-19] MEDS ORDERED: ONDANSETRON ODT 4 MG TAB PO PRN (02:45)
[2016-12-19] MEDS ORDERED: ZOLPIDEM TARTRATE 5 MG TAB PO PRN (02:45)
[2016-12-19] MEDS ORDERED: BENZOCAINE 20% TOPICAL SPRAY 60 ML CAN TOPICAL PRN (02:45)
[2016-12-19] MEDS ORDERED: ALUMINUM/MAGNESIUM/SIMETH 30 ML CUP PO PRN (02:45)
[2016-12-19 02:56] LABS: BLOOD GAS BASE EXCESS -2.3 mmol/L (-2-2); BLOOD GAS O2 HGB SATURATION 55 % (90-100); CORD BLOOD GAS HCO3 24 mmol/L (21-29); CORD BLOOD GAS PCO2 52 mmHG (34-78); CORD BLOOD GAS PH 7.28 (7.14-7.42); CORD BLOOD GAS PO2 26 mmHG (3.0-40.0)
[2016-12-19 02:57] LABS: DRAW SITE CORD BLOOD; STAT NO
[2016-12-19] MEDS: SERTRALINE HCL 100 MG TAB PO SCH (08:58)
[2016-12-19] MEDS ORDERED: SODIUM CHLORIDE 0.9% FLUSH 10 ML FLUSH IV FLUSH SCH (09:00)
[2016-12-19] MEDS ORDERED: MEASLES, MUMPS, RUBELLA VACCINE 0.5 ML VIAL SQ ONE (16:00)
[2016-12-19] MEDS ORDERED: DIPHTH/TETANUS/ACEL PERTUSSIS (BOOSTER) 0.5 ML VIAL/PFS IM ONE (16:00)
[2016-12-19] MEDS: IBUPROFEN 600 MG TAB PO PRN (20:29)
[2016-12-20] MEDS: IBUPROFEN 600 MG TAB PO PRN ×2 (02:23→09:16)
--- NOTE | 2016-12-20 08:36 | HHI.OB ---
Subjective Post Day: 1 Remarks Doing well after delivery in early am Desires discharge nursing no pain Objective Objective Remarks GENERAL: Well-nourished, well-developed patient. CARDIOVASCULAR: Regular rate and rhythm without murmurs, gallops, or rubs. RESPIRATORY: Breath sounds equal bilaterally. No accessory muscle use. ABDOMEN/GI: Abdomen soft, non-tender. Fundus: Firm, non-tender at umbilicus. GENITOURINARY: Light to moderate bleeding. EXTREMITIES: No cyanosis or edema, non-tender, without signs of DVT. Medications and IVs Current Medications Medications (Trade) Dose Ordered Sig/Mindy Route Start Time Stop Time Status Last Admin (NS Flush) 2 ml BID IV FLUSH 12/19/16 09:00 (NS Flush) 2 ml UNSCH PRN IV FLUSH 12/19/16 02:45 (Tylenol) 650 mg Q4H PRN PO 12/19/16 02:45 (Motrin) 600 mg Q6H PRN PO 12/19/16 02:45 12/20/16 02:23 (Percocet 5-325 Mg) 1 tab Q4H PRN PO 12/19/16 02:45 (Percocet 5-325 Mg) 2 tab Q4H PRN PO 12/19/16 02:45 (Americaine 20% Top Spr) 1 spray Q4H PRN TOPICAL 12/19/16 02:45 12/19/16 20:29 (Tucks Pads) 1 applic QID PRN TOPICAL 12/19/16 02:45 12/19/16 20:29 (Odette-Colace) 2 tab Q12H PRN PO 12/19/16 02:45 (Ambien) 5 mg HS PRN PO 12/19/16 02:45 (Mag-Al Plus Susp Liq) 15 ml Q8H PRN PO 12/19/16 02:45 (Zofran Odt) 4 mg Q6H PRN PO 12/19/16 02:45 (Abilify) 20 mg DAILY PO 12/19/16 09:00 12/19/16 08:58 (Zoloft) 100 mg DAILY PO 12/19/16 09:00 12/19/16 08:58 Assessment/Plan Assessment and Plan PPD 1 1/2 baby has been circumcised and bruising improving from brow presentation discussed PPD in context of her MDD discussed return to office in 2 weeks for colpo and biospies for CIS treatment home with same meds Tanvi Cook MD Dec 20, 2016 08:36
[2016-12-20] MEDS ORDERED: IBUP-232 PO (08:38)
--- NOTE | 2016-12-20 08:38 | HHI.DCPOC ---
Discharge Care Plan Report Symptoms to Your Doctor -Temperate above 100.5 degrees -Redness, of incision or excessive or foul smelling drainage -Unusual pain or calf pain -Increased vaginal bleeding -Painful or difficulty urinating -Feelings of extreme sadness or anxiety after 2 weeks Goals to Promote Your Health * To prevent worsening of your condition and complications * To maintain your health at the optimal level Directions to Meet Your Goals Take your medications as prescribed Follow your dietary instruction Follow activity as directed Ensure plenty of rest for recovery Drink fluids for hydration Keep your appointments as scheduled Take your immunizations and boosters as scheduled If your symptoms worsen call your PCP, if no PCP go to Urgent Care Center or Emergency Room Smoking is Dangerous to Your Health. Avoid second hand smoke Call the 24-hour crisis hotline for domestic abuse at Tanvi Cook MD Dec 20, 2016 08:38
[2016-12-20] MEDS: SERTRALINE HCL 100 MG TAB PO SCH (09:17)
== END 2016-12-20 14:04 | disposition home or self-care (01) | DRG 775 ==
LOC: H2EA 17:01 → H1EA 12-19 04:11
PROVIDERS: ADMIT Obstetrics & Gynecology; ATTEND Obstetrics & Gynecology
PROC: 00HU33Z Insertion of Infusion Device into Spinal Canal, Percutaneous Approach (ICD-10-PCS; 2016-12-18)
PROC: 3E0R3CZ (ICD-10-PCS; 2016-12-18)
PROC: 10E0XZZ Delivery of Products of Conception, External Approach (ICD-10-PCS; principal; 2016-12-19)
PROC: 0HQ9XZZ Repair Perineum Skin, External Approach (ICD-10-PCS; 2016-12-19)
DX: O99.344 Other mental disorders complicating childbirth (principal); F32.9 Major depressive disorder, single episode, unspecified; O32.3XX0 Maternal care for face, brow and chin presentation, not applicable or unspecified; O70.0 First degree perineal laceration during delivery; D06.9 Carcinoma in situ of cervix, unspecified; O99.824 Streptococcus B carrier state complicating childbirth; Z3A.38 38 weeks gestation of pregnancy; O69.81X0 Labor and delivery complicated by cord around neck, without compression, not applicable or unspecified; Z88.5 Allergy status to narcotic agent; Z37.0 Single live birth
CPT/HCPCS: 81001; 82805; 85025; 86900; 86901; J2540; J2590; J7120

== ENCOUNTER → 2017-02-19 | Day surgery (SDC) | payer MEDICAID ==
[~2017-02-19] VITALS: Ht 165.1 cm; Wt 78.6 kg
[~2017-02-19] MED LIST changes: +CHLORHEXIDINE GLUCONATE 2 % 1 PACK (2 CLOTHS) TOPICAL PRN; +DO NOT ADM ANY ANTICOAGULANT DRUGS PRN; +IBUP-232 PO; +INSULIN HUMAN REGULAR 1,000 UNITS/10 ML VIAL SQ PRN; +LACTATED RINGER'S 1000 ML IV PRN; +METOPROLOL TARTRATE 25 MG TAB PO PRN; +POVIDONE IODINE 5% (ANTISEPSIS KIT) 4 APPLICATIONS EACH NARE PRN; +SODIUM CHLORID 0.9% 500 ML IV PRN
[2017-02-19 13:42] VITALS: BP 117/74; PULSE 88; RESP 18; TEMP 99; O2SAT 97
--- NOTE | 2017-02-19 16:42 | MB ---
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 She underwent a PET CT scan yesterday the results of which have not yet been interpreted and she is scheduled today for examination under anesthesia, cystoscopy, proctoscopy to get a better understanding of the clinical stage of disease to ultimately make treatment recommendations. It was brought to the attention of the same day surgery staff that she ate at sometime mid morning, chicken tenders and spanish fries. Anesthesia was made aware and, at the time of my discussion with her, it was approximately 2:30 p.m. Anesthesia stated that the absolute earliest would be 6:00 p.m. before she could be put to sleep, but then whether or not the case could be done depended on other cases, traumas coming through the emergency room and so forth. Accordingly, I think it is in her best interest that we reschedule. I apologized for the inconvenience and the emphasis was stressed on following our recommendation. I explained the concerns about food in the stomach, anesthesia, possibility of regurgitation, aspiration and some of the potential problems that can result from that. I certainly want to help her. We want to move forward as soon as possible, but we do not cause any problems in the process. Her mother and significant other were present. They had questions that were answered to the best of my capacity, many of which were directly related to information that was covered when she was in the office setting with us and so I tried explained the rationale for the procedure and what was to be accomplished by the procedure today as well as from the PET scan. More questions were asked and answered. She expressed good understanding and I then contacted my office staff, spoke to our office nurse (Nara Abdi) and let her know that we needed to reschedule and would like to reschedule this procedure as soon as logistically possible and also it may be helpful to her if we can schedule it the early in the mornin. If going throughout the day without food is problematic, we can try to get her scheduled early in the morning. Additionally, Bruno Garcia and her family are made aware that they need to call our office tomorrow if they would not yet heard from us with rescheduling of the procedure to ensure that it gets rescheduled and move forward in a timely fashion. MD DECLAN Velarde/ /3:56 PM /4:37 PM
== END | disposition home or self-care (01) ==
LOC: HSDC 12:16
PROVIDERS: ATTEND Obstetrics & Gynecology Gynecologic Oncology
DX: C53.9 Malignant neoplasm of cervix uteri, unspecified (principal); Z53.09 Procedure and treatment not carried out because of other contraindication
CPT/HCPCS: 86850; 86900; 86901; 99211; G0463

== ENCOUNTER → 2017-03-04 | Day surgery (SDC) | payer MEDICAID ==
[~2017-03-04] VITALS: Ht 165.1 cm; Wt 79.0 kg
[~2017-03-04] MED LIST changes: +*MEPERIDINE 25 MG INJ VIAL PERIprocedural Use ONLY ONE; +DEXAMETHASONE SOD PHOS 4 MG/ML VIAL ONE; +FERRIC SUBSULFATE 8 ML TOP SOLN TOPICAL ONE; -IBUP-232 PO; +KETOROLAC TROMETHAMINE 30 MG/ML (IVP) VIAL IV PUSH SCH; +KETOROLAC TROMETHAMINE 60 MG/2 ML (IM) VIAL IM ONE; -LACTATED RINGER'S 1000 ML IV PRN; +LIDOCAINE 1%/EPINEPHrine 1:100,000 SOLN 30 ML VIAL INFIL ONE; +MIDAZOLAM HCL 2 MG/2 ML VIAL ONE; +ONDANSETRON HCL 4 MG/2 ML VIAL IV PUSH ONE; -PREN29TA PO; +PROPOFOL 200 MG/20 ML AMP IV ONE; +fentaNYL CITRATE 250 MCG/5 ML AMP ONE; +oxyCODONE/ACETAMINOPHEN 5 MG/325 MG TAB PO PRN
[2017-03-04] MEDS: LACTATED RINGER'S 1000 ML IV PRN ×2 (05:50→08:05)
[2017-03-04 06:06] VITALS: BP 114/72; PULSE 85; RESP 16; TEMP 98.1; O2SAT 97
[2017-03-04 08:58] VITALS: BP 115/68; PULSE 76; RESP 16; TEMP 97.7; O2SAT 96
--- NOTE | 2017-03-15 10:15 | MP ---
cc: GEOFFREY BEARDEN MD, MICHAEL J. CARBIENER, PAMELA DATE OF SURGERY: 03/04/2017 PREOPERATIVE DIAGNOSIS Cervical cancer arising from a background of carcinoma in situ. POSTOPERATIVE DIAGNOSIS Cervical cancer arising from a background of carcinoma in situ. PROCEDURE Examination under anesthesia, cervix biopsies, cystoscopy, proctoscopy. SURGEON Geoffrey Bearden DIRECTOR CORPORATE [employer] Manager ANESTHESIA Laryngeal mask. ESTIMATED BLOOD LOSS 20 cc. HISTORY A 36-year-old female who had abnormal Pap smear, irregular bleeding. Colposcopically directed biopsy showed carcinoma in situ with one biopsy confirming invasive disease. She was seen and counseled regarding these findings and the need for further evaluation and presents now for examination under anesthesia. FINDINGS On exam under anesthesia there is an obvious tumor on the anterior cervix that measures approximately 2.5 cm and extends into the endocervical canal beyond the transformation zone so that the upper extent of tumor cannot be visualized. The right parametria is free. The cervix and uterus are mobile. However, I am concerned about the left side as the left cervix is retracted somewhat toward the upper vagina and there is less mobility on the left side with some thickening clinically suggestive of possible early infiltration into the left parametria. On cystoscopy the bladder mucosa appears normal circumferentially. There is good reflux of urine bilaterally. There is no mass or polyp. No evidence of tumor invasion. On proctosigmoidoscopy the anus and rectum appear normal. No polyps or masses, no obvious tumor invasion. Prep is a little bit limited but no overt abnormality is detected. DETAILS OF PROCEDURE The patient is taken to the operating room and placed in the dorsal lithotomy position. After laryngeal mask anesthesia was administered a timeout was undertaken. The patient was identified by sight recognition and hospital ID bracelet, and the proposed procedure was reviewed and confirmed. Exam under anesthesia was performed with findings as described above. She was prepped and draped in sterile fashion. Cervix biopsy was obtained. Monsel's solution was applied. Cystoscopy was performed using a 30-degrees scope with findings as described above. The bladder was drained. Proctosigmoidoscopy was performed using a rigid proctosigmoidoscope with findings as described above. A change of sterile gloves was undertaken. Sites were inspected and noted to be hemostatic. There were no remaining foreign objects in the vagina. Preliminary and final counts were correct. These findings are concerning and most consistent with invasive squamous cell carcinoma of the cervix with an early clinical stage IIB, with concern about early infiltration into the left parametria. There were no remaining foreign objects in the vagina. The counts were correct. She was returned to dorsal supine position and was pending reversal of anesthesia when I left the operating room to precede her to the post-anesthesia care unit. MD DECLAN Velarde/BRIANNA /9:25 AM /10:03 AM
== END | disposition home or self-care (01) ==
LOC: HSDC 05:05
PROVIDERS: ATTEND Obstetrics & Gynecology Gynecologic Oncology
DX: C53.9 Malignant neoplasm of cervix uteri, unspecified (principal); F32.9 Major depressive disorder, single episode, unspecified; F17.200 Nicotine dependence, unspecified, uncomplicated
CPT/HCPCS: 00902; 00910; 00940; 45300; 52000; 57455; 86850; 86900; 86901; 88305; J1100; J1885; J2175; J2250; J2405; J3010; J7120

== ENCOUNTER 2017-03-21 07:08 | Day surgery (SDC) | payer OTHER, MEDICAID ==
[~2017-03-21] VITALS: Ht 165.1 cm; Wt 79.5 kg
[~2017-03-21 07:08] MED LIST changes: -*MEPERIDINE 25 MG INJ VIAL PERIprocedural Use ONLY ONE; -CHLORHEXIDINE GLUCONATE 2 % 1 PACK (2 CLOTHS) TOPICAL PRN; -DEXAMETHASONE SOD PHOS 4 MG/ML VIAL ONE; -DO NOT ADM ANY ANTICOAGULANT DRUGS PRN; -FERRIC SUBSULFATE 8 ML TOP SOLN TOPICAL ONE; -INSULIN HUMAN REGULAR 1,000 UNITS/10 ML VIAL SQ PRN; -KETOROLAC TROMETHAMINE 30 MG/ML (IVP) VIAL IV PUSH SCH; -KETOROLAC TROMETHAMINE 60 MG/2 ML (IM) VIAL IM ONE; -LIDOCAINE 1%/EPINEPHrine 1:100,000 SOLN 30 ML VIAL INFIL ONE; -METOPROLOL TARTRATE 25 MG TAB PO PRN; -MIDAZOLAM HCL 2 MG/2 ML VIAL ONE; -ONDANSETRON HCL 4 MG/2 ML VIAL IV PUSH ONE; -POVIDONE IODINE 5% (ANTISEPSIS KIT) 4 APPLICATIONS EACH NARE PRN; -PROPOFOL 200 MG/20 ML AMP IV ONE; -SODIUM CHLORID 0.9% 500 ML IV PRN; -fentaNYL CITRATE 250 MCG/5 ML AMP ONE; -oxyCODONE/ACETAMINOPHEN 5 MG/325 MG TAB PO PRN
[2017-03-21 07:26] VITALS: BP 120/79; PULSE 83; RESP 20; TEMP 98.8; O2SAT 97
[2017-03-21] MEDS ORDERED: VANCOMYCIN 1000 MG/NS 250 ML - implanted port/tunneled catheter IV SCH ×2 (07:45)
[2017-03-21] MEDS ORDERED: ceFAZolin 2 GM PREMIX 50 ML - implanted port/tunneled catheter insertion IV SCH (07:45)
[2017-03-21] MEDS ORDERED: IBUP800T23 PO (07:58)
[2017-03-21] MEDS ORDERED: SODIUM CHLORIDE 0.9% 1000 ML IV SCH (08:00)
[2017-03-21] MEDS ORDERED: POVIDONE IODINE 5% (ANTISEPSIS KIT) 4 APPLICATIONS EACH NARE SCH (08:15)
[2017-03-21] MEDS ORDERED: CHLORHEXIDINE GLUCONATE 2 % 1 PACK (2 CLOTHS) TOPICAL SCH (08:15)
[2017-03-21] MEDS ORDERED: MIDAZOLAM HCL 5 MG/5 ML VIAL ONE (08:48)
[2017-03-21] MEDS ORDERED: fentaNYL CITRATE 250 MCG/5 ML AMP ONE (08:48)
[2017-03-21] MEDS ORDERED: LIDOCAINE 1%/EPINEPHrine 1:100,000 SOLN 20 ML VIAL ONE (08:52)
--- NOTE | 2017-03-21 09:50 | PD.RAD ---
Post Procedure Progress Note Pre Procedure Diagnosis: (1) Cervical cancer Post Procedure Diagnosis: (1) Cervical cancer Procedure Date: Mar 21, 2017 Supervising Radiologist: Petar Taveras Proceduralist/Assist: Taylor Parekh, RT(R), RT Sangeeta(R)() Anesthesia: Conscious Sedation Plan of Activity Patient to Unit: ROPU Patient Condition: Good Additional Comments: Placed right IJ port See PACS Report for procedural detail/treatment Petar Taveras MD Mar 21, 2017 09:50
[2017-03-21 09:55] VITALS: BP 129/68; PULSE 83; RESP 16; TEMP 98.5; O2SAT 95
[2017-03-21] MEDS ORDERED: SODIUM CHLORIDE 0.9% FLUSH 10 ML FLUSH IVF PRN (10:00)
[2017-03-21 10:10] VITALS: BP 128/71; PULSE 90; RESP 16; O2SAT 97
[2017-03-21 10:30] VITALS: BP 119/67; PULSE 82; RESP 16; O2SAT 95
[2017-03-21 11:00] VITALS: BP 108/69; PULSE 82; RESP 18; O2SAT 97
--- NOTE | 2017-03-21 11:02 | RADRPT ---
EXAM DATE/TIME: 03/21/2017 08:36 [facility] COMPARISON: No previous studies available for comparison. INDICATIONS : Patient with history of cervical cancer in need of Rsybc-q-Pxft placement. MEDICAL HISTORY : HPV, MRSA, Pectus excavatum SURGICAL HISTORY : Pectus excavatum surgery, Colposcopy, Cervical biopsy ENCOUNTER: Initial ACUITY: 1 week PAIN SCORE: 0/10 FLUORO TIME: 0.3 minutes IMAGE SERIES: 0 SEDATION TIME: 45 minutes ACCESS: Right internal jugular vein SEDATION: 1.) 3.5 mg midazolam (Versed) IV 2.) 175 mcg fentanyl (Sublimaze) IV Prophylactic antibiotics were administered with appropriate pre-procedure timing. Vancomycin within 2 hours of procedure, Ancef (or alternative) within 1 hour of procedure. DEVICE: 1. 8 Maori single lumen Smart Port with vortex PROCEDURE : 1. Continuous pulse oximetry and EKG monitoring. 2. Intravenous conscious sedation. 3. Ultrasound guidance for venous access. 4. Fluoroscopic guided implantable central venous port placement. The patient was placed supine. The neck was prepped in sterile fashion. Full sterile technique was u sed, including cap, mask, sterile gloves and gown, and a large sterile sheet. Hand hygiene and 2% ch lorhexidine Betadine was utilized per protocol for cutaneous antisepsis with appropriate dry time for site. The skin and subcutaneous tissues were infiltrated with local anesthetic solution. Under direct ultrasound guidance, central venous access was accomplished in the targeted vessel. The ultrasound images depicting access guidance were stored and saved to PACS for permanent record. A s ubcutaneous pocket was created using blunt dissection. The port was introduced to the pocket. The c atheter tubing was fed through a subcutaneous tunnel to the venotomy site. The catheter tubing was c ut to a suitable length and then was introduced through a valved Peel-Away sheath and positioned with catheter tubing tip at the cavo-atrial junction level. The pocket incision was closed with subcutic ular Vicryl suture. Steri-Strips were applied. The port was flushed and locked with heparin solutio n per protocol. Sterile dressing was applied to the site. The patient tolerated the procedure well. Conscious sedation was performed with the prescribed dosages and duration as above in the presence of an independent trained radiology nurse to assist in the monitoring of the patient. EKG and oximetry remained stable throughout the procedure. The patient tolerated the procedure well and there were no complications. The patient was sent to post anesthesia recovery in stable condition. CONCLUSION: Uncomplicated ultrasound and fluoroscopic guided implanted central venous port catheter placement as described in detail above. An 8 Maori Power port was placed. Petar Taveras MD on March 21, 2017 at 10:57 Board Certified Radiologist. This report was verified electronically.
[2017-03-21 11:50] VITALS: BP 108/69; PULSE 82; RESP 18; O2SAT 97
[2017-03-25] MEDS ORDERED: ABIL30TA2 PO ×2 (10:54)
== END 2017-03-21 11:55 | disposition home or self-care (01) ==
LOC: HROP 07:08 → HRIP 07:09 → HROP 11:55
PROVIDERS: ATTEND Obstetrics & Gynecology Gynecologic Oncology
DX: C53.9 Malignant neoplasm of cervix uteri, unspecified (principal); Q67.6 Pectus excavatum; Z86.14 Personal history of Methicillin resistant Staphylococcus aureus infection
CPT/HCPCS: 36561 ×2; 76937 ×2; 77001 ×2; 99152 ×2; 99153 ×2; C1788; J0690; J1642; J2250; J3010; J3370; J7030; J7050

== ENCOUNTER 2017-03-25 15:00 | Inpatient (IN) | payer OTHER, MEDICAID ==
[~2017-03-25] VITALS: Ht 165.1 cm; Wt 87.1 kg
[~2017-03-25 15:00] MED LIST changes: +ABIL30TA2 PO; +IBUP800T23 PO
[2017-03-26] MEDS ORDERED: CHLORHEXIDINE GLUCONATE 2 % 1 PACK (2 CLOTHS) TOPICAL PRN (08:45)
[2017-03-26] MEDS ORDERED: SODIUM CHLORID 0.9% 500 ML IV PRN (08:45)
[2017-03-26] MEDS ORDERED: LACTATED RINGER'S 1000 ML IV PRN (08:45)
[2017-03-26] MEDS ORDERED: METOPROLOL TARTRATE 25 MG TAB PO PRN (08:45)
[2017-03-26] MEDS ORDERED: INSULIN HUMAN REGULAR 1,000 UNITS/10 ML VIAL SQ PRN (08:45)
[2017-03-26] MEDS ORDERED: POVIDONE IODINE 5% (ANTISEPSIS KIT) 4 APPLICATIONS EACH NARE PRN (08:45)
[2017-03-26] MEDS ORDERED: ceFAZolin 1,000 MG/NS 100 ML IV SCH ×2 (09:00)
[2017-03-26] MEDS ORDERED: HEPARIN SODIUM - SQ 10,000 UNITS/ML VIAL SQ SCH (09:00)
[2017-03-26] MEDS ORDERED: TRAM50TA PO ×2 (09:13)
[2017-03-26 09:14] VITALS: BP 115/68; PULSE 87; RESP 16; TEMP 98.2; O2SAT 98
[2017-03-26] MEDS ORDERED: DEXAMETHASONE SOD PHOS 4 MG/ML VIAL ONE (10:17)
[2017-03-26] MEDS ORDERED: FAMOTIDINE 20 MG/2 ML VIAL ONE (10:17)
[2017-03-26] MEDS ORDERED: MIDAZOLAM HCL 2 MG/2 ML VIAL ONE (10:17)
[2017-03-26] MEDS ORDERED: ACETAMINOPHEN 1000 MG/100 ML VIAL IV ONE (10:17)
[2017-03-26] MEDS ORDERED: LIDOCAINE 1%/EPINEPHrine 1:100,000 SOLN 30 ML VIAL INFIL ONE (11:15)
[2017-03-26] MEDS ORDERED: PROPOFOL 200 MG/20 ML AMP IV ONE (11:55)
[2017-03-26] MEDS ORDERED: ONDANSETRON HCL 4 MG/2 ML VIAL IV PUSH ONE (11:56)
[2017-03-26] MEDS ORDERED: NEOSTIGMINE 3 MG/3 ML SYR IV ONE ×2 (11:56→12:00)
[2017-03-26] MEDS ORDERED: LACTATED RINGER'S 1000 ML INJ 2,000 ML IV ONE (11:56)
[2017-03-26] MEDS ORDERED: PHENYLEPH/NS 1000 MCG/10 ML SYR IV ONE (11:56)
[2017-03-26] MEDS ORDERED: NORMOSOL R INJ 2,000 ML IV ONE (11:57)
[2017-03-26] MEDS ORDERED: SODIUM CHLORIDE 0.9% FLUSH 10 ML FLUSH IV FLUSH PRN (13:30)
[2017-03-26] MEDS ORDERED: *MEPERIDINE 25 MG INJ VIAL PERIprocedural Use ONLY ONE (13:41)
[2017-03-26] MEDS ORDERED: DO NOT ADM ANY ANTICOAGULANT DRUGS PRN (13:42)
[2017-03-26] MEDS ORDERED: fentaNYL CITRATE 250 MCG/5 ML AMP ONE (13:48)
[2017-03-26] MEDS ORDERED: *HYDROmorphone PF 1 MG VIAL PERIprocedural Use ONLY ONE ×2 (13:50→14:45)
[2017-03-26] MEDS: D5-1/2 NS + KCL 20 MEQ INJ 1,000 ML IV SCH ×2 (14:40→23:00)
[2017-03-26] MEDS: KETOROLAC TROMETHAMINE 30 MG/ML (IVP) VIAL IVP SCH ×2 (14:40→22:16)
[2017-03-26] MEDS ORDERED: ONDANSETRON HCL 4 MG/2 ML VIAL IVP PRN (15:00)
[2017-03-26] MEDS ORDERED: traMADol HCL 50 MG TAB PO PRN (15:00)
[2017-03-26] MEDS ORDERED: diphenhydrAMINE HCL 25 MG CAP PO PRN (15:00)
[2017-03-26] MEDS ORDERED: LORazepam 0.5 MG TAB PO PRN (15:00)
[2017-03-26 15:20] VITALS: BP 123/64; PULSE 76; RESP 18; TEMP 96.3; O2SAT 95
[2017-03-26] MEDS ORDERED: HYDROmorphone HCL PF 1 MG/ML VIAL IV ONE (17:00)
[2017-03-26] MEDS ORDERED: oxyCODONE/ACETAMINOPHEN 5 MG/325 MG TAB PO PRN (18:15)
[2017-03-26] MEDS: oxyCODONE/ACETAMINOPHEN 5 MG/325 MG TAB PO PRN (18:21)
[2017-03-26 21:00] VITALS: BP 119/63; PULSE 96; RESP 18; TEMP 98.6; O2SAT 94
--- NOTE | 2017-03-26 21:44 | MP ---
cc: GEOFFREY MEJIA MD,TRAE KHALIL DATE OF SURGERY 03/26/2017 PREOPERATIVE DIAGNOSES 1. 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 2. Scheduled for radiation chemotherapy. 3. Desires preservation of ovarian function. POSTOPERATIVE DIAGNOSES 1. 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 2. Scheduled for radiation chemotherapy. 3. Desires preservation of ovarian function. PROCEDURE Examination under anesthesia, cervix biopsy, robotic-assisted laparoscopic bilateral ovarian transposition. 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 ANESTHESIA General endotracheal anesthesia. ESTIMATED BLOOD LOSS 50 mL IV FLUIDS 2200 mL URINE OUTPUT 300 mL HISTORY A 36-year-old female recently diagnosed with stage IIB squamous cell carcinoma of the cervix. She has been counseled extensively, has met with radiation oncologist ( Dr. Barrow ), has a venous access port placed, has undergone chemotherapy teaching and is ready to get started with pelvic radiation with cisplatin chemosensitization. At 36 years young she is still remote from menopause. She has been counseled regarding the potential value of ovarian transposition to relocate the ovaries out of the radiation field in an effort to prevent premature menopause. She is in favor of this procedure. She has been previously counseled and is seen again in the preop holding area where these issues are discussed. The potential value (but not guarantee) that premature ovarian failure can be prevented by ovarian transposition but it does offer significant potential benefit in that regard. She understands and wishes to move forward. FINDINGS The findings are as previously described. Another biopsy is taken from the 12 o'clock position of the cervix, rendered hemostatic with topical Monsel's solution, sent for frozen section analysis and Dr. Handy Quinteros said it was a squamous cell carcinoma strongly favoring invasive disease and this is consistent with clinical findings. In the peritoneal cavity there is no overtly enlarged lymph nodes. The tubes and ovaries grossly appear normal. The uterus grossly appears normal at the fundal region. No peritoneal implants. PROCEDURE DETAILS The patient taken to the operating room placed in dorsal lithotomy position. After general endotracheal anesthesia was administered a time-out was undertaken. The patient was identified by sight recognition and hospital ID bracelet and the proposed procedure was reviewed and confirmed. She was carefully positioned in padded Ranjan stirrups. Her arms were padded and secured to the sides. She was further secured to the operating table with egg crate padding and tape in across chest over the shoulder fashion. All sites noted to be properly aligned with no malalignments or pressure points. She was prepped and draped in sterile fashion, placed in high lithotomy position. Cervix biopsy was obtained rendered hemostatic with Monsel's solution, returned to low lithotomy position. Broussard catheter placed in the bladder. Change of sterile gloves was undertaken. We confirmed that an orogastric tube was in the stomach on suction. With manual elevation of the abdominal wall, a 5 mm cannula was introduced into the left upper quadrant under direct laparoscopic visualization. An atraumatic entry was confirmed. Carbon dioxide gas was insufflated and a 12 mm cannula was placed in midline above the umbilicus, an 8 mm cannula was placed in the right upper quadrant and left lateral quadrant. The original 5-mm cannula exchanged for an 8-mm cannula. Robotic system brought into the operative field. After three Ray-Staci sponges were placed around the root of the small bowel mesentery to help keep the bowel in position, folded back on its root as she was placed in steep Trendelenburg position. Monopolar scissors, fenestrated bipolar forceps and ProGrasp manipulators were placed in arms #1, 2, and 3, respectively and I took my place at the surgeon's console. The right retroperitoneal dissection was carried out lateral and parallel to the gonadal vessels carried above the pelvic brim. The right ureter was identified. The right infundibulopelvic ligament was isolated. The intervening peritoneum was opened and dissection was carried out proximally above the pelvic brim and distally to isolate the right utero-ovarian ligament. The right utero-ovarian ligament was cauterized securely. Three surgical clips were placed on the remnant of the utero-ovarian ligament to help radiographic identification and the utero-ovarian ligament was transected and the ovary was brought into the right paracolic gutter, further mobilized and placed in position without tension or traction. Similar steps were carried out on the left side where the left retroperitoneal dissection was carried out. The left ureter was identified. The left infundibulopelvic ligament was isolated. The infundibulopelvic ligament was mobilized proximal to the pelvic brim and mobilized distally, isolating the left utero-ovarian ligament. The left utero-ovarian ligament was cauterized securely. Three surgical clips were placed for radiographic identification and the left utero-ovarian ligament was transected. The ovary was then rotated to the left pericolic gutter without tension or torsion and further mobilized for its position above the pelvic brim. Instruments one and three exchanged for needle drivers as 0 Vicryl suture was introduced. The ovary was sutured in position starting the left ovary in the left pericolic gutter with deep bites in the peritoneum and sub peritoneal tissue through the remnant of the utero-ovarian ligament [id number] fashion with multiple locations and then the peritoneum was closed along the gonadal vessels to the adjacent peritoneum to obliterate any potential space. All sutures were tied via instrument tie. The needle was cut and removed. A new suture was introduced. Attention was now directed toward securing the right adnexa. Similarly the right adnexa was secured in the peritoneum, subperitoneal tissue of the right pericolic gutter with interrupted [id number] 0 Vicryl sutures, tied securely at multiple locations to fix it in position without tension or traction and keep it from mobilization. Then the intervening peritoneum was closed with interrupted 0 Vicryl sutures tied via instrument ties. The needle was cut and removed. Sites were inspected. Fallopian tubes were left intact in an effort to avoid any possible compromise to the ovarian blood supply. The ovaries were secured. The gonadal vessels were without tension, traction or torsion and the ovaries were secured well above the pelvic brim well above the radiation field. Pelvis was irrigated. Samir hemostatic powder was placed in the pelvis, the lateral and back mendoza of the uterus and pelvic sidewalls. All sites were hemostatic. The surgical objectives were completed. The robotic instruments were removed. The robotic system was disengaged from the operative field. I reentered the bedside under sterile condition. Each of the three Ray-Staci sponges that were placed in the peritoneal cavity were removed laparoscopically. Each were inspected and noted to be removed in their entirety. After the three Ray-Staci sponges were removed, inspection confirmed again sites were hemostatic. There were no remaining foreign objects in the peritoneal cavity. Preliminary and final counts were correct. The 12-mm fascial defect was closed with interrupted 0 Vicryl sutures using a needle pass apparatus with direct visualization. They were tied securely which rendered the fascia completely airtight and hemostatic. Remaining cannulas were withdrawn. Carbon dioxide gas was removed. 3-0 Vicryl subcutaneous, 3-0 Vicryl subcuticular and Steri-Strips were used to close these skin incisions. She was returned to dorsal lithotomy position. Pelvic exam confirmed there were no remaining foreign objects in the vagina. The cervix biopsy site was completely hemostatic. Final counts were correct. She was returned to dorsal supine position and was pending reversal of anesthesia when I left the operating room to precede her to the Post Anesthesia Care Unit. MD DECLAN Velarde/KELSEA /2:07 PM /9:17 PM
[2017-03-26] MEDS: SODIUM CHLORIDE 0.9% FLUSH 10 ML FLUSH IV FLUSH SCH (22:16)
[2017-03-27 01:00] VITALS: BP 113/59; PULSE 85; RESP 16; TEMP 98.5; O2SAT 95
[2017-03-27] MEDS: oxyCODONE/ACETAMINOPHEN 5 MG/325 MG TAB PO PRN ×2 (01:30→07:42)
[2017-03-27] MEDS: D5-1/2 NS + KCL 20 MEQ INJ 1,000 ML IV SCH (01:30)
[2017-03-27 04:00] VITALS: BP 116/65; PULSE 76; RESP 16; TEMP 98.4; O2SAT 96
[2017-03-27] MEDS: KETOROLAC TROMETHAMINE 30 MG/ML (IVP) VIAL IVP SCH ×2 (04:17→07:42)
[2017-03-27] MEDS ORDERED: OXYC1TAB63 PO (07:26)
[2017-03-27 07:34] LABS: AUTOMATED NEUTROPHIL # 6.1 TH/MM3 (1.8-7.7); BASOPHIL % 0.4 % (0.0-2.0); EOSINOPHIL # 0.1 TH/MM3 (0-0.4); HEMATOCRIT 35.5 % (35.0-46.0); HEMO FLAGS DIFF FINAL; LYMPHOCYTE # 2.8 TH/MM3 (1.0-4.8); MEAN CELL VOLUME 86.8 FL (80.0-100.0); MEAN CORPUSCULAR HGB CONC 33.4 % (32.0-36.0); MONO % 7.5 % (0.0-8.0); NEUT % 62.1 % (16.0-70.0); PLATELET COUNT 262 TH/MM3 (150-450); RED BLOOD COUNT 4.09 MIL/MM3 (4.00-5.30); RED CELL DISTRIBUTION WIDTH 15.8 % (11.6-17.2); WHITE BLOOD COUNT 9.8 TH/MM3 (4.0-11.0)
--- NOTE | 2017-03-27 07:36 | PD.ONC.PN ---
Subjective Subjective Remarks post op day #1 pt is in bed, painful and teary eyed last Percocet was 0130 educated pt to take Percocet as prescribed to stay ahead of pain and to use a stool softener like Colace 100mg 1 po bid to keep from getting constipated from the narcotic eating regular diet without nausea and vomiting Bobo has been D/C'd Objective Data Date Time Temp Pulse Resp B/P Pulse Ox O2 Delivery O2 Flow Rate FiO2 03/27/17 05:17 18 03/27/17 04:00 98.4 76 16 116/65 96 03/27/17 02:30 18 03/27/17 01:00 98.5 85 16 113/59 95 03/26/17 21:00 98.6 96 18 119/63 94 03/26/17 15:20 96.3 76 18 123/64 95 03/26/17 14:52 98.5 79 14 98 03/26/17 14:45 77 14 122/65 98 Nasal Cannula 2 03/26/17 14:30 78 14 126/66 98 Nasal Cannula 03/26/17 14:15 79 16 122/62 98 Nasal Cannula 2 03/26/17 14:00 80 16 124/64 97 Nasal Cannula 3 03/26/17 13:45 87 16 134/68 98 Nasal Cannula 3 03/26/17 13:41 98.4 90 14 128/62 98 Nasal Cannula 4 03/26/17 09:14 98.2 87 16 115/68 98 Laboratory Results Laboratory Tests Test 03/26/17 09:20 Beta HCG, Qualitative LESS THAN 1 MIU/ML Blood Type A POSITIVE Antibody Screen NEGATIVE Administered Medications Medications (Trade) Dose Ordered Sig/Mindy Route PRN Reason Start Time Stop Time Status Last Admin Dose Admin Potassium Chloride/Dextrose/ Sod Cl (D5-1/2 NS + KCl 20 Meq Inj) 1,000 ml @ 125 mls/hr Q8H IV 03/26/17 15:00 03/27/17 01:30 Sodium Chloride (NS Flush) 2 ml BID IV FLUSH 03/26/17 21:00 03/26/17 22:16 Ketorolac Tromethamine (Toradol Inj) 30 mg Q6H IVP 03/26/17 15:00 03/27/17 09:01 03/27/17 04:17 Lorazepam (Ativan) 0.5 mg Q8H PRN PO ANXIETY 03/26/17 15:00 03/26/17 16:09 Oxycodone/ Acetaminophen (Percocet 5-325 Mg) 2 tab Q6H PRN PO PAIN SCALE 6 TO 10 03/26/17 18:15 03/27/17 01:30 Objective Remarks GENERAL: Well-nourished, well-developed patient. SKIN: Warm and dry. HEAD: Normocephalic. EYES: No scleral icterus. No injection or drainage. CARDIOVASCULAR: Regular rate and rhythm without murmurs. RESPIRATORY: Breath sounds equal bilaterally. No accessory muscle use. GASTROINTESTINAL: Abdomen soft, SS are c/d/i without s/s of drainage EXTREMITIES: teds and scds MUSCULOSKELETAL: Adequate muscle tone. NEUROLOGICAL: No obvious focal deficit. Awake, alert, and oriented x3. PSYCHIATRIC: Appropriate mood and affect; insight and judgment normal. Assessment/Plan Problem List: (1) Cervical cancer Status: Acute Plan: Pt is to start radiation soon, she has appt with rad onc on Saturday for simulation she will stop by obstetrician gynecologist/onc office after appt to get lab orders and chemo schedule infusa port site SS are c/d/i no s/s of infection (2) Post-operative state Status: Acute Plan: POD #1 s/p RA ovarian transposition Percocet for pain ok to D/C home today after first void and restart home medications pt instructed to use a stool softener while taking pain medication Attending Statement This plan was discussed with Dr. Bearden and he is in agreement. Problem Qualifiers (1) Cervical cancer: Qualified Code: C53.9 - Malignant neoplasm of cervix, unspecified site Juliano Loya Mar 27, 2017 07:36
[2017-03-27] MEDS: SODIUM CHLORIDE 0.9% FLUSH 10 ML FLUSH IV FLUSH SCH (07:42)
[2017-03-27 07:50] VITALS: BP 118/67; PULSE 71; RESP 20; TEMP 98; O2SAT 95
[2017-03-27 08:02] LABS: BICARBONATE 26.1 MEQ/L (21.0-32.0); POTASSIUM 4.4 MEQ/L (3.5-5.1)
[2017-03-27] MEDS ORDERED: ARIPiprazole 30 MG TAB PO SCH (09:00)
[2017-03-27] MEDS ORDERED: SERTRALINE HCL 50 MG TAB PO SCH (09:00)
== END 2017-03-27 11:34 | disposition home or self-care (01) | DRG 741 ==
LOC: HSDI 03-26 08:15 → EDSTATUS 03-26 10:15 → HOCB 03-26 15:10
PROVIDERS: ADMIT Obstetrics & Gynecology Gynecologic Oncology; ATTEND Obstetrics & Gynecology Gynecologic Oncology
PROC: 0UBC7ZX Excision of Cervix, Via Natural or Artificial Opening, Diagnostic (ICD-10-PCS; 2017-03-26)
PROC: 8E0W4CZ Robotic Assisted Procedure of Trunk Region, Percutaneous Endoscopic Approach (ICD-10-PCS; 2017-03-26)
PROC: 0US24ZZ Reposition Bilateral Ovaries, Percutaneous Endoscopic Approach (ICD-10-PCS; principal; 2017-03-26 10:25)
DX: C53.9 Malignant neoplasm of cervix uteri, unspecified (principal); F17.200 Nicotine dependence, unspecified, uncomplicated; Z88.5 Allergy status to narcotic agent
CPT/HCPCS: 80048; 84703; 85025; 86850; 86900; 86901; 88305; 88331; 94150; J0131; J0690; J1100; J1170; J1644; J1885; J2175; J2250; J2370; J2405; J2710; J3010; J3480; J7120

== ENCOUNTER 2017-05-03 19:14 | Inpatient (IN) | payer MEDICAID, OTHER ==
[~2017-05-03] VITALS: Ht 165.1 cm; Wt 78.6 kg
[~2017-05-03 19:14] MED LIST changes: -ARIP1TAB12 PO; -IBUP800T23 PO; +OXYC1TAB63 PO
[2017-05-03 19:25] VITALS: BP 129/74; PULSE 109; RESP 18; TEMP 99.1; O2SAT 97
[2017-05-03] MEDS ORDERED: REME15TA PO (20:00)
[2017-05-03] MEDS ORDERED: VIST25CA PO (20:01)
[2017-05-03] MEDS ORDERED: ZOFR4TAB PO (20:01)
[2017-05-03] MEDS ORDERED: REGL5TAB PO (20:02)
[2017-05-03] MEDS ORDERED: SANC3.1D TD (20:03)
[2017-05-03 20:15] VITALS: BP 114/69; PULSE 94; RESP 18; O2SAT 96
[2017-05-03] MEDS ORDERED: SODIUM CHLOR 0.9% 1000 ML INJ 1,000 ML IV ONE ×2 (21:01→23:15)
[2017-05-03 21:15] VITALS: BP 110/64; PULSE 92; RESP 18; O2SAT 96
[2017-05-03] MEDS ORDERED: SODIUM CHLORIDE 0.9% FLUSH 10 ML FLUSH IVF PRN (21:15)
[2017-05-03] MEDS ORDERED: ONDANSETRON HCL 4 MG/2 ML VIAL IVP ONE (21:15)
[2017-05-03 21:37] LABS: HEMATOCRIT 35.6 % (35.0-46.0); MEAN CELL VOLUME 86.5 FL (80.0-100.0); MEAN CORPUSCULAR HEMOGLOBIN 28.7 PG (27.0-34.0); MEAN CORPUSCULAR HGB CONC 33.2 % (32.0-36.0); PLATELET COUNT 201 TH/MM3 (150-450); RED BLOOD COUNT 4.11 MIL/MM3 (4.00-5.30); RED CELL DISTRIBUTION WIDTH 13.4 % (11.6-17.2); WHITE BLOOD COUNT 1.4 TH/MM3 (4.0-11.0)
[2017-05-03 21:46] LABS: HEMO FLAGS AUTO DIFF
[2017-05-03 21:47] LABS: CHLORIDE 100 MEQ/L (98-107); POTASSIUM 3.6 MEQ/L (3.5-5.1); SODIUM (NA) 136 MEQ/L (136-145)
[2017-05-03 21:50] LABS: ANION GAP 8 MEQ/L (5-15); BICARBONATE 28.5 MEQ/L (21.0-32.0); BLOOD UREA NITROGEN 8 MG/DL (7-18); MAGNESIUM 2.2 MG/DL (1.5-2.5)
[2017-05-03 21:51] LABS: APTT (PATIENT) 24.7 SEC (24.3-30.1)
[2017-05-03 21:53] LABS: ALT (GPT) 21 U/L (10-53); AST (GOT) 9 U/L (15-37); GLOMERULAR FILTRATION RATE 122 ML/MIN (>89)
--- NOTE | 2017-05-03 21:53 | RADRPT ---
EXAM DATE/TIME: 05/03/2017 21:24 [facility] COMPARISON: No previous studies available for comparison. INDICATIONS : palpitations. MEDICAL HISTORY : HPV, MRSA, Pectus excavatum SURGICAL HISTORY : Pectus excavatum surgery, Colposcopy, Cervical biopsy. Port. ENCOUNTER: Initial ACUITY: 1 day PAIN SCORE: 5/10 LOCATION: Bilateral chest FINDINGS: No infiltrate, effusion or pneumothorax demonstrated. Heart size upper limits of normal. A right inte rnal jugular [id number]-[id number]-[id number] catheter is seen with tip at the atriocaval junction. CONCLUSION: No acute cardiopulmonary disease demonstrated. Rolo Muller MD on May 03, 2017 at 21:50 Board Certified Radiologist. This report was verified electronically.
[2017-05-03 21:55] LABS: TOTAL BILIRUBIN ADULT 0.4 MG/DL (0.2-1.0)
[2017-05-03 21:56] LABS: ALKALINE PHOSPHATASE 67 U/L (45-117)
--- NOTE | 2017-05-03 21:56 | PD ---
HPI Chief Complaint: GI Complaint Time Seen by Provider: 20:55 Travel History International Travel<30 days: No Contact w/Intl Traveler<30days: No Traveled to known affect area: No History of Present Illness HPI 36 year-old female presents to the emergency department by private transportation the care of her mother for evaluation of generalized weakness near-syncope and vomiting. Patient was diagnosed in December with stage IIB cervical cancer. Patient is currently under the care of rfid technician oncologist Dr.Kelly Bearden and radiation oncologist for ongoing chemotherapy with carboplatin after discontinuing cisplatin due to tinnitus. Patient has just finished her fourth week of chemotherapy and fourth week of radiation therapy. Patient was recently seen by her oncologist*on steroid therapy for chemotherapy related rash. Patient states rash has resolved after steroid therapy. Patient has noted over the past 4 weeks frequent diarrhea. Patient's had no melena or hematochezia. Patient states since Saturday of this week she has not felt well and has had multiple episodes of vomiting. Patient has intermittently noted streaks of blood and pink tinged to her emesis. Patient today was feeling quite poorly and believes she had a near syncopal episode while standing at a counter she felt faint as if she was going to pass out and leaned forward resting on the counter and then felt like she awakened from possibly passing out briefly and then went to the bathroom and again had another episode of vomiting with streaks of blood. Patient states due to her overall weakness she contacted her mother who is brought her to the emergency room. Patient denies any fever or chills sinus pressure drainage sore throat earache neck pain or stiffness chest pain palpitations cough congestion shortness of breath abdominal pain flank pain dysuria frequency urgency or new joint pain or swelling. Patient did contuse her left lower leg against an object and noted a large bruise but has not had increased bruising. Patient does not report any epistaxis gingival bleeding hemoptysis melena hematochezia or hematuria. Patient's had no change in mentation no confusion no headache no visual disturbance. Patient's oncologist is aware of her ongoing nausea and vomiting and recently prescribed a new antinausea and Sancuso patch transdermal. Patient did contact her oncologist regarding her events today. Patient is unable to identify other exacerbating or alleviating factors. Patient rates her pain/discomfort as 0/10 in intensity. PFSH Past Medical History Narrative Medical Anxiety depression cervical cancer cervical biopsy robot-assisted laparoscopic bilateral ovarian transposition for preservation of ovarian function colonoscopy radiation therapy chemotherapy 3 para 3 [id number] right wrist surgery eye surgery no tobacco use: Nursing notes reviewed Autoimmune Disease: No Anxiety: Yes Depression: Yes Cancer: Yes (CERVICAL) Cardiovascular Problems: No Chemotherapy: Yes Cerebrovascular Accident: No Diabetes: No Diminished Hearing: No Endocrine: No Genitourinary: No Headaches: No Hepatitis: No Hiatal Hernia: No Immune Disorder: No Implanted Vascular Access Dvce: Yes Medical other: Yes (HPV) Musculoskeletal: No Neurologic: No Psychiatric: Yes (anxiety/depression) Reproductive: No Respiratory: No Immunizations Current: Yes Radiation Therapy: Yes Seizures: No Thyroid Disease: No Tetanus Vaccination: < 5 Years Influenza Vaccination: No ?: Unknown LMP: march 2017 Menopausal: No : 3 Para: 3 Past Surgical History Abdominal Surgery: No AICD: No Arteriovenous Shunt: No Body Medical Devices: metal plate in L wrist, port in right upper chest Cardiac Surgery: No Ear Surgery: No Endocrine Surgery: No Eye Surgery: Yes (1982 corrective eye surgery) Genitourinary Surgery: No Gynecologic Surgery: No Hysterectomy: No Insulin Pump: No Joint Replacement: No Oral Surgery: No Pacemaker: No Thoracic Surgery: Yes (CHEST WALL REPAIR 1988, R upper chest port) Other Surgery: Yes (pectis excavatum, ovarian transposition) Social History Alcohol Use: No Tobacco Use: Yes (4-5 cigarettes daily) Substance Use: No Allergies-Medications (Allergen,Severity, Reaction): Coded Allergies: codeine (Unverified Allergy, Severe, Hives, 05/03/17) morphine (Unverified Allergy, Severe, Anaphylaxis, 05/03/17) *MDRO Multi-Drug Resistant Organism (Verified Adverse Reaction, Unknown, MRSA, 05/03/17) MRSA (arm wound) - 09/04/2010 Reported Meds & Prescriptions Reported Meds & Active Scripts Active Reported Sancuso Patch 24 HR (Granisetron Patch 24 HR) 3.1 Mg/24 Hr Patch 1 Patch TD [id number] Reglan (Metoclopramide HCl) 5 Mg Tab 5 Mg PO Q4HR PRN Zofran (Ondansetron HCl) 4 Mg Tab 4 Mg PO Q4HR PRN Vistaril (Hydroxyzine Pamoate) 25 Mg Cap 15 Mg PO HS Remeron (Mirtazapine) 15 Mg Tab 15 Mg PO HS Abilify (Aripiprazole) 30 Mg Tab 15 Mg PO DAILY Review of Systems Except as stated in HPI: all other systems reviewed are Neg General / Constitutional: No: Fever, Chills HENT: No: Congestion Cardiovascular: No: Chest Pain or Discomfort Respiratory: No: Cough, Shortness of Breath, Pleuritic Pain Gastrointestinal: Positive: Nausea, Vomiting, Diarrhea, Hematemesis (streaks), No: Abdominal Pain, Hematochezia, Constipation Genitourinary: No: Frequency, Dysuria, Hematuria, Flank Pain Musculoskeletal: No: Myalgias, Arthralgias Skin: Positive Rash (improved on steroids ---? carboplatin related) Neurologic: Positive: Weakness, Dizziness, Syncope (near syncope) Psychiatric: Positive: Anxiety, Depression Hematologic/Lymphatic: No: Easy Bruising Physical Exam Narrative GENERAL: Well-developed well-nourished female in no acute distress no respiratory distress; GCS 15 SKIN: Warm and dry. HEAD: Atraumatic. Normocephalic. EYES: Pupils equal and round. No scleral icterus. No injection or drainage. ENT: No nasal bleeding or discharge. Mucous membranes pink and moist. Posterior pharynx no redness no induration no edema no ulcerations NECK: Trachea midline. No JVD. Supple no lymphadenopathy no meningismus no nuchal rigidity CARDIOVASCULAR: Regular rate and rhythm. RESPIRATORY: No accessory muscle use. Clear to auscultation. Breath sounds equal bilaterally. GASTROINTESTINAL: Abdomen soft, non-tender, nondistended. Hepatic and splenic margins not palpable. MUSCULOSKELETAL: Extremities without clubbing, cyanosis, or edema. No obvious deformities. NEUROLOGICAL: Awake and alert. No obvious cranial nerve deficits. Motor grossly within normal limits. Five out of 5 muscle strength in the arms and legs. Normal speech. PSYCHIATRIC: Appropriate mood and affect; insight and judgment normal. Data Data Last Documented VS Vital Signs Date Time Temp Pulse Resp B/P (MAP) Pulse Ox O2 Delivery O2 Flow Rate FiO2 05/03/17 23:15 98.4 80 18 109/67 (81) 96 Room Air Orders Orders Electrocardiogram (05/03/17 21:01) Complete Blood Count With Diff (05/03/17 21:01) Comprehensive Metabolic Panel (05/03/17 21:01) Magnesium (Mg) (05/03/17 21:01) Act Partial Throm Time (Ptt) (05/03/17 21:01) Urinalysis - C+S If Indicated (05/03/17 21:01) Chest, Single Ap (05/03/17 21:01) Blood Glucose (05/03/17 21:01) Ecg Monitoring (05/03/17 21:01) Iv Access Insert/Monitor (05/03/17 21:01) Oximetry (05/03/17 21:01) Ondansetron Inj (Zofran Inj) (05/03/17 21:15) Sodium Chloride 0.9% Flush (Ns Flush) (05/03/17 21:15) Sodium Chlor 0.9% 1000 Ml Inj (Ns 1000 M (05/03/17 21:01) Type And Screen (05/03/17 21:01) Blood Culture (05/03/17 21:01) Lactic Acid (05/03/17 21:01) Sodium Chlor 0.9% 1000 Ml Inj (Ns 1000 M (05/03/17 23:15) Cefepime Inj (Maxipime Inj) (05/04/17 00:18) Admit Order (Ed Use Only) (05/04/17 ) ^ Saline Lock (05/04/17 00:19) Resp Oxygen Suhas C Titrat 1-4 L (05/04/17 ) Notify Dr: Other (05/04/17 00:19) Sodium Chloride 0.9% Flush (Ns Flush) (05/04/17 09:00) Sodium Chloride 0.9% Flush (Ns Flush) (05/04/17 00:30) Labs Laboratory Tests Test 05/03/17 21:15 05/03/17 23:15 White Blood Count 1.4 TH/MM3 Red Blood Count 4.11 MIL/MM3 Hemoglobin 11.8 GM/DL Hematocrit 35.6 % Mean Corpuscular Volume 86.5 FL Mean Corpuscular Hemoglobin 28.7 PG Mean Corpuscular Hemoglobin Concent 33.2 % Red Cell Distribution Width 13.4 % Platelet Count 201 TH/MM3 Mean Platelet Volume 7.1 FL CBC Comment AUTO DIFF Differential Total Cells Counted 100 Neutrophils % (Manual) 16 % Lymphocytes % 55 % Monocytes % 17 % Eosinophils % 12 % Neutrophils # (Manual) 0.2 TH/MM3 Differential Comment FINAL DIFF MANUAL Platelet Estimate NORMAL Platelet Morphology Comment NORMAL Activated Partial Thromboplast Time 24.7 SEC Blood Urea Nitrogen 8 MG/DL Creatinine 0.56 MG/DL Random Glucose 96 MG/DL Total Protein 7.3 GM/DL Albumin 3.4 GM/DL Calcium Level 9.4 MG/DL Magnesium Level 2.2 MG/DL Alkaline Phosphatase 67 U/L Aspartate Amino Transf (AST/SGOT) 9 U/L Alanine Aminotransferase (ALT/SGPT) 21 U/L Total Bilirubin 0.4 MG/DL Sodium Level 136 MEQ/L Potassium Level 3.6 MEQ/L Chloride Level 100 MEQ/L Carbon Dioxide Level 28.5 MEQ/L Anion Gap 8 MEQ/L Estimat Glomerular Filtration Rate 122 ML/MIN Lactic Acid Level 0.6 mmol/L Urine Color YELLOW Urine Turbidity CLEAR Urine pH 6.0 Urine Specific [place] 1.026 Urine Protein 30 mg/dL Urine Glucose (UA) NEG mg/dL Urine Ketones NEG mg/dL Urine Occult Blood TRACE Urine Nitrite NEG Urine Bilirubin NEG Urine Leukocyte Esterase NEG Urine RBC 0-3 /hpf Urine WBC 0-2 /hpf Urine Squamous Epithelial Cells 0-5 /hpf Urine Mucus FEW /lpf Microscopic Urinalysis Comment CULT NOT INDICATED MDM Medical Decision Making Medical Screen Exam Complete: Yes Emergency Medical Condition: Yes Medical Record Reviewed: Yes Differential Diagnosis Generalized weakness, near syncope, syncope, dehydration, likely disturbance, anemia, pancytopenia, sepsis, PE Narrative Course Patient placed on neutropenic precautions and specimens collected and sent for resulting patient given bolus of normal saline along with Zofran 4 mg IV for cultures obtained EKG performed which shows sinus rhythm rate [address] segment elevation or injury pattern change noted Patient resting comfortably receiving additional IV fluids CBC is automated differential neutropenic total white count with absolute neutrophil #200 hemoglobin hematocrit platelet count values are normal range; metabolic panel values are normal range; lactic acid is not elevated; chest x- ray reveals no acute abnormality There has been no nausea or vomiting while in the emergency department Call placed to patient's oncologist Dr. Bearden have discussed patient feels patient if improving could be discharged to home on Cipro however at this time have discussed with oncologist patient continues to have had ongoing vomiting and diarrhea on multiple antibiotics with white count of 1200 and ANC 200 oncologist reports atypical for ANC to be this low on current radiation therapy and chemotherapy therefore now requests that patient be admitted to [facility] to the medical service and they can consult him at [place] as needed; patient's case discussed with on-call medicine agreeable with admission patient this time at least meet SIRS criteria and possible sepsis criteria and will be admitted with neutropenia precautions. Sepsis Criteria SIRS Criteria (2 or more): Heart rate over 90, WBC > 94291, < 4000 or > 10% bands Physician Communication Physician Communication discussed with Dr Bearden; discussed with Dr Thomas Diagnosis Primary Impression: Neutropenia Qualified Codes: D70.1 - Agranulocytosis secondary to cancer chemotherapy; T45.1X5A - Adverse effect of antineoplastic and immunosuppressive drugs, initial encounter Additional Impressions: SIRS (systemic inflammatory response syndrome) Cervical cancer Qualified Codes: C53.9 - Malignant neoplasm of cervix uteri, unspecified Admitting Information Admitting Physician Requests: Admit Lulu Reece MD May 03, 2017 21:56
[2017-05-03 22:15] VITALS: BP 101/63; PULSE 90; RESP 18; TEMP 99.1; O2SAT 96
[2017-05-03 22:26] LABS: EOSINOPHILS 12 % (0-4); NEUTROPHIL # MANUAL DIFF 0.2 TH/MM3 (1.8-7.7); PLATELET ESTIMATE SMEAR NORMAL (NORMAL); PLATELET MORPHOLOGY NORMAL (NORMAL); POLYS (SEG NEUTROPHILS) 16 % (16-70); SCAN/DIFF FINAL DIFF MANUAL; WBC DIFF SAMPLE 100
[2017-05-03 23:15] VITALS: BP 109/67; PULSE 80; RESP 18; TEMP 98.4; O2SAT 96
[2017-05-03 23:35] LABS: BLOOD, URINE TRACE (NEG); GLUCOSE,URINE NEG (NEG); KETONE, URINE NEG (NEG); NITRITE,URINE NEG (NEG)
[2017-05-03 23:52] LABS: COMMENT (UR) CULT NOT INDICATED; CULTURE IF INDICATED CULT NOT INDICATED; MUCUS URINE FEW /lpf (OCC); RBC, URINE 0-3 /hpf (0-3); SQUAMOUS EPITHELIAL CELL URINE 0-5 /hpf (0-5); URINE COLOR YELLOW (YELLW/STRAW); WBC, URINE 0-2 /hpf (0-5)
[2017-05-04] VITALS (8 sets, daily range): BP systolic 110–125; BP diastolic 62–75; PULSE 76–94; RESP 16–21; TEMP 96.8–98.6; O2SAT 93–96
[2017-05-04] MEDS ORDERED: CEFEPIME INJ 2,000 MG in SODIUM CHLORIDE 0.9% INJ 100 ML IV STA (00:18)
[2017-05-04] MEDS ORDERED: SENNOSIDES 8.6 MG TAB PO PRN (00:30)
[2017-05-04] MEDS ORDERED: HYDROmorphone HCL PF 1 MG/ML VIAL IV PRN (00:30)
[2017-05-04] MEDS ORDERED: ONDANSETRON HCL 4 MG/2 ML VIAL IVP PRN (00:30)
[2017-05-04] MEDS ORDERED: SODIUM CHLORIDE 0.9% FLUSH 10 ML FLUSH IVF PRN (00:30)
[2017-05-04] MEDS ORDERED: BISACODYL 10 MG SUPP RECTAL PRN (00:30)
[2017-05-04] MEDS ORDERED: LACTULOSE SYRUP 20 GM/30 ML CUP PO PRN (00:30)
[2017-05-04] MEDS ORDERED: SODIUM CHLORIDE 0.9% FLUSH 10 ML FLUSH IV FLUSH PRN (00:30)
[2017-05-04] MEDS: MIRTAZAPINE 15 MG TAB PO SCH ×2 (00:30→20:43)
[2017-05-04] MEDS ORDERED: ACETAMINOPHEN 325 MG TAB PO PRN (00:30)
[2017-05-04] MEDS ORDERED: Vancomycin Consult Pharmacy 1 EA OTHER SCH (00:30)
[2017-05-04] MEDS ORDERED: MAGNESIUM HYDROXIDE SUSP 30 ML CUP PO PRN (00:30)
[2017-05-04] MEDS: SODIUM CHLOR 0.9% 1000 ML INJ 1,000 ML IV SCH ×3 (01:20→20:24)
[2017-05-04] MEDS ORDERED: VANCOMYCIN INJ 1,250 MG in SODIUM CHLOR 0.9% 250 ML INJ 250 ML IV ONE (02:00)
[2017-05-04 08:57] LABS: CHLORIDE 105 MEQ/L (98-107); POTASSIUM 3.9 MEQ/L (3.5-5.1); SODIUM (NA) 139 MEQ/L (136-145)
[2017-05-04] MEDS ORDERED: SODIUM CHLORIDE 0.9% FLUSH 10 ML FLUSH IV FLUSH SCH (09:00)
[2017-05-04] MEDS: SODIUM CHLORIDE 0.9% FLUSH 10 ML FLUSH IV FLUSH SCH ×2 (09:00→20:43)
[2017-05-04 09:01] LABS: HEMATOCRIT 32.5 % (35.0-46.0); MEAN CORPUSCULAR HEMOGLOBIN 28.8 PG (27.0-34.0); MEAN CORPUSCULAR HGB CONC 32.3 % (32.0-36.0); PLATELET COUNT 178 TH/MM3 (150-450); RED BLOOD COUNT 3.66 MIL/MM3 (4.00-5.30); RED CELL DISTRIBUTION WIDTH 14.7 % (11.6-17.2); WHITE BLOOD COUNT 1.5 TH/MM3 (4.0-11.0)
[2017-05-04 09:12] LABS: ALKALINE PHOSPHATASE 57 U/L (45-117); ALT (GPT) 16 U/L (10-53); ANION GAP 8 MEQ/L (5-15); AST (GOT) 12 U/L (15-37); BICARBONATE 25.9 MEQ/L (21.0-32.0); BLOOD UREA NITROGEN 7 MG/DL (7-18); GLOMERULAR FILTRATION RATE 130 ML/MIN (>89); TOTAL BILIRUBIN ADULT 0.3 MG/DL (0.2-1.0)
[2017-05-04 09:14] LABS: HEMO FLAGS AUTO DIFF
[2017-05-04 09:41] LABS: EOSINOPHILS 11 % (0-4); POLYS (SEG NEUTROPHILS) 12 % (16-70); WBC DIFF SAMPLE 100
[2017-05-04 09:44] LABS: NEUTROPHIL # MANUAL DIFF 0.2 TH/MM3 (1.8-7.7); SCAN/DIFF FINAL DIFF MANUAL
[2017-05-04] MEDS ORDERED: VANCOMYCIN 1,000 MG/NS 250 ML IV SCH ×2 (10:00)
[2017-05-04] MEDS: DOCUSATE SODIUM 50 MG/SENNA 8.6 MG TAB PO SCH ×2 (10:08→20:43)
[2017-05-04] MEDS: ARIPiprazole 15 MG TAB PO SCH (10:08)
[2017-05-04] MEDS: CEFEPIME INJ 1,000 MG in SODIUM CHLORIDE 0.9% INJ 100 ML IV SCH (14:18)
--- NOTE | 2017-05-04 17:23 | MB ---
cc: ELIU FORBES M.D., CAMILLE MD MOLPUS,GEOFFREY VU,TRAE KHALIL DATE OF CONSULTATION: 05/04/2017. REASON FOR CONSULTATION: Patient known to us with cervix cancer. REASON FOR ADMISSION: Neutropenia. Additional problems of nausea and vomiting, diarrhea, decreased oral intake, dehydration. PHYSICIAN REQUESTING CONSULTATION: Dr. Bonny Thomas. HISTORY OF PRESENT ILLNESS: This is a 36-year-old female recently diagnosed with a clinical stage IIB cervical cancer. She recently underwent bilateral laparoscopic robotic ovarian transposition in an effort to try to reduce the chance of premature menopause with recommendation for pelvic radiation and weekly cloverdale chemotherapy. Her treatment has been noted for some tinnitus on cisplatin so it was changed to carboplatin. After carboplatin, she had a fairly significant rash; whether not it was cause and effect is uncertain. She was treated with a steroid taper and within 24 hours she looked and felt remarkably better. She has been tolerating the radiation well and had now completed four weeks of radiation with weekly cloverdale chemotherapy and was relatively symptom-free until prior to admission 12-24 hours prior to admission she reports significant nausea, vomiting, cramps, diarrhea, no appetite and these symptoms brought her to the emergency room. She reports that no one else in the family or around her has been sick but she does have a new baby at home who is just a few months old. She has two other children. No one else got sick. She does not believe that her diet changed or that there is anything that may have been the culprit for food poisoning. Upon admission, she was found to be neutropenic. Current labs show a white count of 1.5 with only 12% neutrophils, hemoglobin 10.5 and hematocrit 32.5. Electrolytes essentially normal. Renal function, BUN and creatinine were 7 and 0.53. Microbiology - blood cultures no growth times 24 hours. Chest x-ray showed no acute abnormality. She has been started on broad-spectrum antibiotics and neutropenic precautions in an isolation room. She is seen now in consultation for further evaluation and recommendations regarding these findings. PAST MEDICAL HISTORY: Past medical history notable for A recent diagnosis of cervical cancer. PAST SURGICAL HISTORY: Past surgical history includes exam under anesthesia, cystoscopy, proctoscopy. She has had bilateral ovarian transposition done laparoscopically robotically earlier this year. FAMILY HISTORY: Unremarkable. SOCIAL HISTORY: She is , has three children. Does use tobacco. GYNECOLOGIC HISTORY: As noted above. ALLERGIES: 1. CODEINE. 2. MORPHINE. MEDICATIONS: She has prescriptions for 1. Zoloft. 2. Percocet. 3. Ativan. 4. Abilify. REVIEW OF SYSTEMS: Review of systems is as per history of present illness. No headaches, no fevers, chills, no back pain, chest pain, shortness of breath. No bright red blood per rectum. No melena. 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 No joint pain or aches. Most noted in her review of systems is that she reports feeling tremendously better today compared to yesterday. Marked improvement. She is now drinking and eating without difficulty. The diarrhea has stopped. She has had no more bouts of diarrhea today. She has been afebrile and she overall is feeling much improved. PHYSICAL EXAMINATION: VITAL SIGNS: She has been afebrile since admission with her maximum temperature 99.1, pulse ranging from 82-109, respirations 16-20, blood pressure 109-129/62-74, O2 saturations greater than or equal to 96%. GENERAL: She is alert and oriented x3 in good spirits. No acute distress. Normal pallor. Mucous membranes are slightly dry. LYMPH NODE SURVEY: The lymph node survey is negative. LUNGS: Clear. CARDIOVASCULAR: Regular rate and rhythm. ABDOMEN: The abdomen is soft, nontender and nondistended and nonacute. PELVIC: Exam deferred given recent exam. EXTREMITIES: Neurovascularly intact. BETSEY: No costovertebral angle tenderness or spinal point tenderness. Time was spent in discussion with her reviewing the findings in her case to-date. I am sorry that she was feeling so poorly but I am pleased to see that she is feeling so much better already. Certainly the IV fluids have probably helped. She was dehydrated from the diarrhea, vomiting and decreased oral intake. Time was spent discussing neutropenia and the concerns when the white count goes too which puts her at increased risk for infections and more significant problems related to the infection than when her white count is normal. Radiation and chemotherapy can cause the white count to drop, although it is a bit unusual to become profoundly neutropenic on the pelvic radiation and weekly cloverdale regimen. Nevertheless, she is started on antibiotics here and when she feels well enough to go home, will be continued on oral antibiotics and there may be value in starting Neupogen depending on how she feels will help determine if she can continue with radiation this week. Will hold chemotherapy until her neutropenia resolves but will reassess her counts prior to scheduled treatment on Saturday. Discussion ensued. Questions were answered. She expressed good understanding and agreed. ASSESSMENT: 1. Stage IIB cervical cancer with ongoing pelvic radiation and weekly cloverdale chemotherapy. 2. Admitted with nausea, vomiting, diarrhea, decreased oral intake, dehydration. 3. Neutropenia on precautions. Cultures obtained. Broad-spectrum antibiotics started. 4. Clinically significantly improved. 5. Extensive discussion. PLAN: 1. Continue present management. Very grateful for the excellent medical care. 2. Continue oral antibiotics after she is able to be discharged to home for at least a week. 3. Criteria for discharge would be her continued improvement, ability to eat and drink, no significant fever spikes or signs and symptoms of sepsis. 4. White count neutropenia not worsening and hopefully improving. 5. She is to contact our office this week to ensure that she has follow up labs so that we can make decision regarding surgical treatment. MD DECLAN Velarde/CARLOS /4:21 PM /5:01 PM
--- NOTE | 2017-05-04 18:10 | HHI.HP ---
HPI Service [facility] Primary Care Physician Robina Bearden MD Admission Diagnosis Neutropenia; sepsis; cervical CA Diagnoses: Travel History International Travel<30 Days: No Contact w/Intl Traveler <30 Da: No Traveled to Known Affected Are: No History of Present Illness 36-year-old female with a history of, currently undergoing chemotherapy with carboplatin, as well as radiation therapy. Patient presents to ER with 3 day history of nausea and vomiting with some spots of blood in her emesis. She reports difficulty keeping food down over the past several days, and reports lightheadedness. She reports a near syncopal episode around 5 PM on 05/03 which prompted her to present to ER. She denies any focal signs or symptoms. She says that yesterday she placed a new nausea patch on last night, which helped. Review of Systems Except as stated in HPI: all other systems reviewed are Neg Past Family Social History Past Medical History Bipolar Depression Stage IIB cervical cancer Past Surgical History Port placement in March Ovarian transposition Cystoscopy Proctoscopy Reported Medications Reported Meds & Active Scripts Active Reported Sancuso Patch 24 HR (Granisetron Patch 24 HR) 3.1 Mg/24 Hr Patch 1 Patch TD [id number] Reglan (Metoclopramide HCl) 5 Mg Tab 5 Mg PO Q4HR PRN Zofran (Ondansetron HCl) 4 Mg Tab 4 Mg PO Q4HR PRN Vistaril (Hydroxyzine Pamoate) 25 Mg Cap 15 Mg PO HS Remeron (Mirtazapine) 15 Mg Tab 15 Mg PO HS Abilify (Aripiprazole) 30 Mg Tab 15 Mg PO DAILY Allergies: Coded Allergies: codeine (Unverified Allergy, Severe, Hives, 05/03/17) morphine (Unverified Allergy, Severe, Anaphylaxis, 05/03/17) *MDRO Multi-Drug Resistant Organism (Verified Adverse Reaction, Unknown, MRSA, 05/03/17) 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 Denies any alcohol. Denies any illicit drugs. Physical Exam Vital Signs Vital Signs Date Time Temp Pulse Resp B/P (MAP) Pulse Ox O2 Delivery O2 Flow Rate FiO2 05/04/17 12:00 97.2 94 21 112/72 (85) 94 05/04/17 08:00 97.5 88 19 117/70 (86) 96 05/04/17 04:00 98.0 83 16 125/74 (91) 96 05/04/17 02:19 96 21 05/04/17 01:38 98.2 86 16 122/75 (91) 96 05/04/17 01:06 05/04/17 00:15 98.6 82 18 110/62 (78) 96 Room Air 05/03/17 23:15 98.4 80 18 109/67 (81) 96 Room Air 05/03/17 22:15 99.1 90 18 101/63 (76) 96 Room Air 05/03/17 21:15 96 Room Air 05/03/17 21:15 92 18 110/64 (79) 96 Room Air 05/03/17 20:15 94 18 114/69 (84) 96 Room Air 05/03/17 19:25 99.1 109 18 129/74 (92) 97 Physical Exam GENERAL: This is a well-nourished, well-developed patient, in no apparent distress. Alert and oriented 3. SKIN: No rashes, ecchymoses or lesions. Cool and dry. HEAD: Atraumatic. Normocephalic. No temporal or scalp tenderness. EYES: Pupils equal round and reactive. Extraocular motions intact. No scleral icterus. No injection or drainage. ENT: Nose without bleeding, purulent drainage or septal hematoma. Throat without erythema, tonsillar hypertrophy or exudate. Uvula midline. Airway patent. NECK: Trachea midline. No JVD. Supple, nontender, no meningeal signs. CARDIOVASCULAR: Regular rate and rhythm without murmurs, gallops, or rubs. RESPIRATORY: Clear to auscultation. Breath sounds equal bilaterally. No wheezes , rales, or rhonchi. GASTROINTESTINAL: Abdomen soft, non-tender, nondistended. No hepato-splenomegaly , or palpable masses. No guarding. MUSCULOSKELETAL: Extremities without clubbing, cyanosis, or edema. No joint tenderness, effusion, or edema noted. No calf tenderness. Negative Homans sign bilaterally. NEUROLOGICAL: Awake and alert. Cranial nerves II through XII intact. Motor and sensory grossly within normal limits. Five out of 5 muscle strength in all muscle groups. Normal speech. Laboratory Laboratory Tests Test 05/03/17 21:15 05/03/17 23:15 05/04/17 07:50 White Blood Count 1.4 1.5 Red Blood Count 4.11 3.66 Hemoglobin 11.8 10.5 Hematocrit 35.6 32.5 Mean Corpuscular Volume 86.5 89.0 Mean Corpuscular Hemoglobin 28.7 28.8 Mean Corpuscular Hemoglobin Concent 33.2 32.3 Red Cell Distribution Width 13.4 14.7 Platelet Count 201 178 Mean Platelet Volume 7.1 7.4 CBC Comment AUTO DIFF AUTO DIFF Differential Total Cells Counted 100 100 Neutrophils % (Manual) 16 12 Lymphocytes % 55 52 Monocytes % 17 25 Eosinophils % 12 11 Neutrophils # (Manual) 0.2 0.2 Differential Comment FINAL DIFF MANUAL FINAL DIFF MANUAL Platelet Estimate NORMAL Platelet Morphology Comment NORMAL Activated Partial Thromboplast Time 24.7 Blood Urea Nitrogen 8 7 Creatinine 0.56 0.53 Random Glucose 96 103 Total Protein 7.3 6.0 Albumin 3.4 2.6 Calcium Level 9.4 8.0 Magnesium Level 2.2 Alkaline Phosphatase 67 57 Aspartate Amino Transf (AST/SGOT) 9 12 Alanine Aminotransferase (ALT/SGPT) 21 16 Total Bilirubin 0.4 0.3 Sodium Level 136 139 Potassium Level 3.6 3.9 Chloride Level 100 105 Carbon Dioxide Level 28.5 25.9 Anion Gap 8 8 Estimat Glomerular Filtration Rate 122 130 Lactic Acid Level 0.6 Urine Color YELLOW Urine Turbidity CLEAR Urine pH 6.0 Urine Specific [place] 1.026 Urine Protein 30 Urine Glucose (UA) NEG Urine Ketones NEG Urine Occult Blood TRACE Urine Nitrite NEG Urine Bilirubin NEG Urine Leukocyte Esterase NEG Urine RBC 0-3 Urine WBC 0-2 Urine Squamous Epithelial Cells 0-5 Urine Mucus FEW Microscopic Urinalysis Comment CULT NOT INDICATED Date/Time Source Procedure Growth Status 05/03/17 21:20 Blood Peripheral Aerobic Blood Culture - Preliminary NO GROWTH IN 1 DAY Resulted 05/03/17 21:20 Blood Peripheral Anaerobic Blood Culture - Preliminary NO GROWTH IN 1 DAY Resulted Result Diagram: 05/04/17 0750 05/04/17 0750 Imaging Last Impressions Chest X-Ray 05/03/172100 Signed Impressions: Service Date/Time: Wednesday, May 03, 2017 21:24 - CONCLUSION: No acute cardiopulmonary disease demonstrated. Rolo Muller MD Caprinmikayla VTE Risk Assessment Caprini VTE Risk Assessment: No/Low Risk (score <= 1) Caprini Risk Assessment Model Point Value = 1 Point Value = 2 Point Value = 3 Point Value = 5 Age 41-60 Minor surgery BMI > 25 kg/m2 Swollen legs Varicose veins or History of unexplained or recurrent spontaneous Oral contraceptives or hormone replacement Sepsis (< 1 month) Serious lung disease, including pneumonia (< 1 month) Abnormal pulmonary function Acute myocardial infarction Congestive heart failure (< 1 month) History of inflammatory bowel disease Medical patient at bed rest Age 61-74 Arthroscopic surgery Major open surgery (> 45 min) Laparoscopic surgery (> 45 min) Malignancy Confined to bed (> 72 hours) Immobilizing plaster cast Central venous access Age >= 75 History of VTE Family history of VTE Factor V Leiden Prothrombin [id number] Lupus anticoagulant Anticardiolipin antibodies Elevated serum homocysteine Heparin-induced thrombocytopenia Other congenital or acquired thrombophilia Stroke (< 1 month) Elective arthroplasty Hip, pelvis, or leg fracture Acute spinal cord injury (< 1 month) Prophylaxis Regimen Total Risk Factor Score Risk Level Prophylaxis Regimen 0-1 Low Early ambulation 2 Moderate Order ONE of the following: *Sequential Compression Device (SCD) *Heparin 5000 units SQ BID 3-4 Higher Order ONE of the following medications: *Heparin 5000 units SQ TID *Enoxaparin/Lovenox 40 mg SQ daily (WT < 150 kg, CrCl > 30 mL/min) *Enoxaparin/Lovenox 30 mg SQ daily (WT < 150 kg, CrCl > 10-29 mL/min) *Enoxaparin/Lovenox 30 mg SQ BID (WT < 150 kg, CrCl > 30 mL/min) AND/OR *Sequential Compression Device (SCD) 5 or more Highest Order ONE of the following medications: *Heparin 5000 units SQ TID (Preferred with Epidurals) *Enoxaparin/Lovenox 40 mg SQ daily (WT < 150 kg, CrCl > 30 mL/min) *Enoxaparin/Lovenox 30 mg SQ daily (WT < 150 kg, CrCl > 10-29 mL/min) *Enoxaparin/Lovenox 30 mg SQ BID (WT < 150 kg, CrCl > 30 mL/min) AND *Sequential Compression Device (SCD) Assessment and Plan Assessment and Plan //Intractable nausea and vomiting. -Continue Ativan medics. Continue nausea patch. If resolved by tomorrow and tolerating food and fluids, can discharge home on prophylactic antibiotics for neutropenia. //Slight hematemesis. -This is likely secondary to esophageal irritation from vomiting. patient without any abdominal pain. This appears to have resolved as nausea has resolved. There is no anemia -Start on PPI. //Neutropenia. absolute Neutrophil Count 0.2 -Neutropenic precautions. -No fevers. Continue prophylactic antibiotics. Plan on discharge home with Cipro versus Augmentin. Discussed with oncology. Appreciate assistance. //Tobacco abuse. Cessation counseling provided. //Bipolar disorder. //Depression No acute issues. Continue home medication Discussed Condition With Patient, nurse, Dr. Bearden Physician Certification 2 Midnight Certification Type: Admission for Inpatient Services Order for Inpatient Services The services are ordered in accordance with Medicare regulations or non- Medicare payer requirements, as applicable. In the case of services not specified as inpatient-only, they are appropriately provided as inpatient services in accordance with the 2-midnight benchmark. Estimated LOS (days): 2 days is the estimated time the patient will need to remain in the hospital, assuming treatment plan goals are met and no additional complications. Post-Hospital Plan: Home Gopi Robertson MD May 04, 2017 18:10
[2017-05-04] MEDS ORDERED: PANTOPRAZOLE SOD 40 MG DELAYED RELEASE TAB PO ONE (18:15)
--- NOTE | 2017-05-04 18:24 | EKG ---
Date Performed: 05/03/2017 Time Performed: 21:12:28 PTAGE: 36 years EKG: SUPRAVENTRICULAR RHYTHM ATYPICAL ECG PREVIOUS TRACING : 06/17/2016 10.19 Compared to the previous tracing NSR not present DOCTOR: Pato Ellis Interpretating Date/Time 05/04/2017 18:22:51
[2017-05-04] MEDS ORDERED: hydrOXYzine PAMOATE 25 MG CAP PO SCH (21:00)
[2017-05-05] VITALS: BP 109/55; PULSE 78; RESP 20; TEMP 97.8; O2SAT 96
[2017-05-05] MEDS: CEFEPIME INJ 1,000 MG in SODIUM CHLORIDE 0.9% INJ 100 ML IV SCH ×2
[2017-05-05] MEDS ORDERED: PHARMACY ORDERED LAB ONE (01:45)
[2017-05-05 04:00] VITALS: BP 109/62; PULSE 75; RESP 20; TEMP 97.8; O2SAT 98
[2017-05-05] MEDS: SODIUM CHLOR 0.9% 1000 ML INJ 1,000 ML IV SCH (06:24)
[2017-05-05 08:00] VITALS: BP 123/71; PULSE 78; RESP 18; TEMP 97.7; O2SAT 92; O2SAT 96
[2017-05-05] MEDS: SODIUM CHLORIDE 0.9% FLUSH 10 ML FLUSH IV FLUSH SCH (08:56)
[2017-05-05] MEDS: ARIPiprazole 15 MG TAB PO SCH (08:56)
[2017-05-05] MEDS: DOCUSATE SODIUM 50 MG/SENNA 8.6 MG TAB PO SCH (08:56)
[2017-05-05] MEDS ORDERED: PANTOPRAZOLE SOD 40 MG DELAYED RELEASE TAB PO SCH (09:00)
[2017-05-05 11:13] LABS: AUTOMATED NEUTROPHIL # 0.9 TH/MM3 (1.8-7.7); BASOPHIL % 0.5 % (0.0-2.0); EOSINOPHIL # 0.1 TH/MM3 (0-0.4); EOSINOPHIL % 7.8 % (0.0-4.0); LYMPH % 30.3 % (9.0-44.0); LYMPHOCYTE # 0.5 TH/MM3 (1.0-4.8); MEAN CELL VOLUME 87.4 FL (80.0-100.0); MEAN CORPUSCULAR HEMOGLOBIN 28.5 PG (27.0-34.0); MEAN CORPUSCULAR HGB CONC 32.6 % (32.0-36.0); MONO % 14.7 % (0.0-8.0); NEUT % 46.7 % (16.0-70.0); PLATELET COUNT 189 TH/MM3 (150-450); RED BLOOD COUNT 3.78 MIL/MM3 (4.00-5.30); RED CELL DISTRIBUTION WIDTH 13.5 % (11.6-17.2); WHITE BLOOD COUNT 1.8 TH/MM3 (4.0-11.0)
[2017-05-05 11:18] LABS: HEMO FLAGS AUTO DIFF
[2017-05-05 11:20] LABS: CHLORIDE 104 MEQ/L (98-107); POTASSIUM 3.6 MEQ/L (3.5-5.1); SODIUM (NA) 141 MEQ/L (136-145)
[2017-05-05 11:24] LABS: ANION GAP 7 MEQ/L (5-15); BICARBONATE 29.7 MEQ/L (21.0-32.0); BLOOD UREA NITROGEN 6 MG/DL (7-18)
[2017-05-05 11:27] LABS: ALT (GPT) 19 U/L (10-53); AST (GOT) 14 U/L (15-37); GLOMERULAR FILTRATION RATE 110 ML/MIN (>89)
[2017-05-05 11:28] LABS: TOTAL BILIRUBIN ADULT 0.2 MG/DL (0.2-1.0)
[2017-05-05 11:30] LABS: ALKALINE PHOSPHATASE 59 U/L (45-117)
[2017-05-05 11:54] LABS: EOSINOPHILS 14 % (0-4); NEUTROPHIL # MANUAL DIFF 0.8 TH/MM3 (1.8-7.7); POLYS (SEG NEUTROPHILS) 44 % (16-70); SCAN/DIFF FINAL DIFF MANUAL; WBC DIFF SAMPLE 100
[2017-05-05] MEDS ORDERED: AUGM875T3 PO (11:57)
[2017-05-05 12:00] VITALS: BP 120/62; PULSE 87; RESP 18; TEMP 97.9; O2SAT 94
--- NOTE | 2017-05-05 17:27 | HHI.PR ---
Subjective Remarks Patient seen this morning. Says she feels well. Denies any nausea or vomiting today. Denies any chest pain or shortness of breath. Objective Vital Signs Date Time Temp Pulse Resp B/P (MAP) Pulse Ox O2 Delivery O2 Flow Rate FiO2 05/05/17 12:00 97.9 87 18 120/62 (81) 94 05/05/17 08:00 97.7 78 18 123/71 (88) 92 05/05/17 08:00 96 21 05/05/17 04:00 97.8 75 20 109/62 (78) 98 05/05/17 00:00 97.8 78 20 109/55 (73) 96 05/04/17 20:00 98.3 78 16 121/66 (84) 93 05/04/17 20:00 93 21 I/O 05/04/17 05/04/17 05/04/17 05/05/17 05/05/17 05/05/17 07:00 15:00 23:00 07:00 15:00 23:00 Intake Total 1050 ml 240 ml 250 ml Balance 1050 ml 240 ml 250 ml Intake Oral 50 ml 240 ml 250 ml IV Total 1000 ml # Voids 2 # Bowel Movements 0 Result Diagram: 05/05/17 1052 05/05/17 1052 Objective Remarks GENERAL: Patient sitting up in bed. Appears comfortable. Alert and oriented 3. SKIN: Warm and dry. HEAD: Normocephalic. EYES: No scleral icterus. No injection or drainage. NECK: Supple, trachea midline. No JVD . CARDIOVASCULAR: Regular rate and rhythm without murmurs, gallops, or rubs. RESPIRATORY: Breath sounds equal bilaterally. No accessory muscle use. GASTROINTESTINAL: Abdomen soft, non-tender, nondistended. MUSCULOSKELETAL: No cyanosis, or edema. BACK: Nontender without obvious deformity. No CVA tenderness. A/P Assessment and Plan //Intractable nausea and vomiting. -imProved with antiemetics .Continue nausea patch. If resolved by tomorrow and tolerating food and fluids, can discharge home on prophylactic antibiotics for neutropenia. -Nausea and vomiting has resolved with patch. Continue patch //Slight hematemesis. -This is likely secondary to esophageal irritation from vomiting. patient without any abdominal pain. This appears to have resolved as nausea has resolved. There is no anemia -Start on PPI. -This is likely secondary to retching. This has resolved. Hemoglobin stable. //Neutropenia. absolute Neutrophil Count 0.2 on admission. -Neutropenic precautions. -No fevers. -Absolute neutrophil count improving 0.8. -As patient is still neutropenic, Discharge home on Augmentin. 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 Augmentin can be discontinued when patient is no longer neutropenic. //Tobacco abuse. Cessation counseling provided. //Bipolar disorder. //Depression No acute issues. Continued home medication Discharge Planning She presented with nausea, profound neutropenia with absolute neutrophil count 0.2. Nausea improved with anti-emetic patch from home. Oncology was consulted. Neutrophil count improved to 0.8, and patient was discharged on Augmentin. She will continue using anti-emetic patch. =Discharge home in good condition. Regular diet as tolerated. Activity ad kortney. Avoid contacts. Please see discharge medication list. Follow-up primary care/oncology area Gopi Robertson MD May 05, 2017 17:27
[2017-05-21] MEDS ORDERED: CEPH-459 PO (06:24)
== END 2017-05-05 12:30 | disposition home or self-care (01) | DRG 810 ==
LOC: PHED 19:14 → PHEDA 05-04 00:22 → PH3B 05-04 00:59
PROVIDERS: ADMIT Internal Medicine; ATTEND Internal Medicine
DX: D70.1 Agranulocytosis secondary to cancer chemotherapy (principal); C53.9 Malignant neoplasm of cervix uteri, unspecified; E86.0 Dehydration; F17.210 Nicotine dependence, cigarettes, uncomplicated; F31.9 Bipolar disorder, unspecified; R11.2 Nausea with vomiting, unspecified; T45.1X5A Adverse effect of antineoplastic and immunosuppressive drugs, initial encounter; R19.7 Diarrhea, unspecified
CPT/HCPCS: 71010; 80053; 81001; 83605; 83735; 85007; 85027; 85730; 86850; 86900; 86901; 87040; 93005; 96361; 96374; J0692; J2405; J3370; J7030; J7050; Q0177

== ENCOUNTER → 2017-05-21 | Day surgery (SDC) | payer OTHER, MEDICAID ==
[~2017-05-21] MED LIST changes: +AUGM875T3 PO; +CEPH-459 PO; +CHLORHEXIDINE GLUCONATE 2 % 1 PACK (2 CLOTHS) TOPICAL PRN; +INSULIN HUMAN REGULAR 1,000 UNITS/10 ML VIAL SQ PRN; +LACTATED RINGER'S 1000 ML IV PRN; +METOPROLOL TARTRATE 25 MG TAB PO PRN; -OXYC1TAB63 PO; +POVIDONE IODINE 5% (ANTISEPSIS KIT) 4 APPLICATIONS EACH NARE PRN; +REGL5TAB PO; +REME15TA PO; +SANC3.1D TD; +SODIUM CHLORID 0.9% 500 ML IV PRN; +SODIUM CHLORIDE 0.9% FLUSH 10 ML FLUSH IV FLUSH PRN; +VIST25CA PO; +ZOFR4TAB PO; -ZOLO50TA PO
== END | disposition home or self-care (01) ==
LOC: HSDC 05:48
PROVIDERS: ATTEND Radiology Radiation Oncology
DX: Z53.8 Procedure and treatment not carried out for other reasons (principal)
CPT/HCPCS: 99211; G0463

== ENCOUNTER → 2017-05-23 | Day surgery (SDC) | payer OTHER, MEDICAID ==
[~2017-05-23] VITALS: Ht 165.1 cm; Wt 76.8 kg
[~2017-05-23] MED LIST changes: +*HYDROmorphone PF 1 MG VIAL PERIprocedural Use ONLY ONE; +*RESP: ALBUTEROL 2.5 MG/3 ML NEB (PRN) PERIprocedural Use ONLY NEB ONE; -AUGM875T3 PO; +DO NOT ADM ANY ANTICOAGULANT DRUGS PRN; +ESTROGENS CONJUGATED VAG CREA 15 APPL/30 GM TUBE ONE; +LACTATED RINGER'S 1000 ML INJ 1,000 ML IV ONE; +MIDAZOLAM HCL 2 MG/2 ML VIAL IV ONE; +MIDAZOLAM HCL 2 MG/2 ML VIAL ONE; +ONDANSETRON HCL 4 MG/2 ML VIAL IV PUSH ONE; +PROPOFOL 200 MG/20 ML AMP IV ONE; -SODIUM CHLORIDE 0.9% FLUSH 10 ML FLUSH IV FLUSH PRN; +ceFAZolin 1,000 MG/NS 100 ML IV SCH
[2017-05-23 08:55] VITALS: BP 138/81; PULSE 97; RESP 15; TEMP 97.8; O2SAT 99
--- NOTE | 2017-05-23 10:25 | RADRPT ---
EXAM DATE/TIME: 05/23/2017 06:55 [facility] COMPARISON: No previous studies available for comparison. EXTERNAL COMPARISON : [facility], PET/CT - TUMOR METABOLISM, February 18, 2017 INDICATIONS : Tandem and ovoid placement. MEDICAL HISTORY : HPV. Cervical cancer. Chemotherapy. Radiation therapy. SURGICAL HISTORY : Eye surgery. Port placement, right chest. Chest wall repair. Left wrist surgery. Ovarian transpositio n. ENCOUNTER: Initial ACUITY: 1 day PAIN SCORE: Nonresponsive. LOCATION: Bilateral pelvis AREA EVALUATED: Pelvis. FINDINGS: Intraoperative ultrasound guidance was performed.. A MONIQUE sleeve was placed and identified within th e endometrial canal and endocervical canal. CONCLUSION: A MONIQUE sleeve was placed and identified within the endometrial canal and endocervical canal.. Randolph Rodríguez MD on May 23, 2017 at 10:22 Board Certified Radiologist. This report was verified electronically.
--- NOTE | 2017-05-23 14:55 | MP ---
cc: ELIU FORBES M.D., KELLY L. MD VERNACCHIO,TRAE KHALIL DATE OF SURGERY: 05/23/2017 PREOPERATIVE DIAGNOSIS: Stage 2B cervical cancer. Status post external radiation with cisplatinum chemotherapy. In need of high dose rate brachytherapy. POSTOPERATIVE DIAGNOSIS: Stage 2B cervical cancer. Status post external radiation with cisplatinum chemotherapy. In need of high dose rate brachytherapy. OPERATION: Examination under anesthesia. Ultrasound guided cervix dilation with insertion of Fahad sleeve with tandem and Ovoid insertion for brachytherapy. SURGEON: Robina Bearden MD. MATERIAL HANDLER: Eliu Forbes MD. ANESTHESIA: Laryngeal mask anesthesia. ESTIMATED BLOOD LOSS: 40 cc. HISTORY: This is a 36-year-old female found to have a clinical stage IIB cervical cancer. She underwent bilateral robotic ovarian transposition in preparation for radiation therapy. She has now completed external radiation therapy with cisplatin chemotherapy and brachytherapy is recommended. She has been counseled regarding brachytherapy the potential value of a Fahad sleeve placement. She is seen in the preop holding area were questions are again answered. Findings and plan are reviewed. She expressed good understanding wishes to move forward. Findings on exam under anesthesia. The appearance has clearly improved the cervix is circumferentially smooth. There is better mobility to the cervix and uterus. There is no overt persistent nodularity in the parametrium. The cervix itself is still friable with a fair bit of bleeding with using instruments to steady the cervix and with manipulation, with some friability and the endocervical canal but overall much improved with external radiation therapy. The uterine cavity sounds to approximately 7 cm slightly anteverted. PROCEDURE: She was taken to the operating room placed in dorsal lithotomy position after laryngeal mask anesthesia was administered time-out was undertaken. She was identified by sight recognition and hospital ID bracelet and the proposed procedure was reviewed and confirmed. She was carefully positioned in stirrups, arms were secured out to the side. The exam under anesthesia was performed with findings as described above. She was prepped and draped in usual sterile fashion. Broussard catheter placed in the bladder. The cervix was grasped, uterine cavity was sounded. Ultrasound guidance confirmed proper intrauterine placement proper depth and the cervix was dilated with ultrasound guidance and proper dilation and placement was confirmed. 0 Vicryl sutures were placed in a [id number] fashion circumferentially around the cervix at 10 o'clock, 2 o'clock and 6 o'clock position. These were threaded to the faceplate of the Fahad sleeve and using a narrow dilator into the endocervical canal. The Fahad sleeve was guided and secured in the cervix and the faceplate was secured against the cervix by tying down the sutures Monsel's solution was used to assist and local hemostasis. The uterine cavity was sounded using a uterine sound the ring forceps marked the depth of the uterus at the level of the Fahad sleeve faceplate to the fundus under ultrasound guidance. Dr. Campbell shepard then fashioned the tandem and ovoids (colpostats) properly placed in the vagina with appropriate spacers and packing can help hold them in place and to increase distance for a packing and spacing Preliminary final counts were correct. She was returned to dorsal supine position and was pending reversal of anesthesia when I left the operating room to precede her to the Post Anesthesia Care Unit. MD DECLAN Velarde/shantanu /7:43 AM /2:36 PM
--- NOTE | 2017-05-23 15:11 | MP ---
cc: ELIU BARROW M.D. DATE OF SURGERY: 05/23/2017 DATE OF : [address] Robina Bearden SET UP MECHANIC STAMPING MACHINES Dr. Richie Barrow PREOPERATIVE DIAGNOSIS Squamous cell carcinoma of the cervix, stage IIB, status post external beam radiation treatment with chemotherapy. POSTOPERATIVE DIAGNOSIS Squamous cell carcinoma of the cervix, stage IIB, status post external beam radiation treatment with chemotherapy. PROCEDURE Examination under anesthesia, cervical dilatation with placement of a Fahad sleeve with ultrasound assistance. This was followed by insertion of tandem and ovoids for radiation treatment. BRIEF HISTORY This lady was found to have a stage IIB squamous cell carcinoma of the cervix. She underwent external beam radiation treatment in conjunction with systemic therapy. She is now being seen in the operating room to assess tumor response followed by cervical dilatation with Fahad sleeve insertion and 5 planned tandem and ovoid insertions, this being the first procedure. DETAILS OF PROCEDURE The cervical dilatation and Fahad sleeve insertion under ultrasound guidance was performed by Dr. Bearden with a separate note dictated; however, this was completed uneventfully. The uterus sounded to 7 cm. A tandem at 6 cm was then placed through the Fahad sleeve into the cervix and uterus. Two ovoids were then placed in the vaginal vault and the three devices were locked in place with the locking mechanism provided. A rectal shield was then fitted easily and locked in place. Estrogen vaginal cream soaked vaginal packing was then put in place to stabilize the device. The procedure was then completed. From Recovery she will be transferred to radiation treatment where she will undergo CT simulation followed by appropriate calculations and delivery of radiation via these devices. It will then be removed in the department and anticipate that she will be discharged home in good condition. This is the first of five planned procedures. MD MARNI England/BRIANNA /8:37 AM /2:59 PM
--- NOTE | 2017-05-23 20:04 | EKG ---
Date Performed: 05/23/2017 Time Performed: 06:15:40 PTAGE: 36 years EKG: ECTOPIC ATRIAL RHYTHM OTHERWISE WITHIN NORMAL LIMITS Compared to prior tracing no significa nt change ABNORMAL RHYTHM ECG PREVIOUS TRACING : 05/03/2017 21.12 DOCTOR: Allen Yip Interpretating Date/Time 05/23/2017 20:03:24
== END | disposition home or self-care (01) ==
LOC: HSDC 05:06
PROVIDERS: ATTEND Radiology Radiation Oncology
DX: C53.9 Malignant neoplasm of cervix uteri, unspecified (principal)
CPT/HCPCS: 00940; 57155; 76998; 93005; J0690; J1170; J2250; J2405; J3010; J7120; J7613

== ENCOUNTER → 2017-05-28 | Day surgery (SDC) | payer OTHER, MEDICAID ==
[~2017-05-28] VITALS: Ht 165.1 cm; Wt 77.9 kg
[~2017-05-28] MED LIST changes: +*ONDANSETRON 4 MG VIAL PERIprocedural Use ONLY ONE; -*RESP: ALBUTEROL 2.5 MG/3 ML NEB (PRN) PERIprocedural Use ONLY NEB ONE; +ACETAMINOPHEN 1000 MG/100 ML 100 ML IV ONE; +DEXAMETHASONE SOD PHOS 4 MG/ML VIAL ONE; +FAMOTIDINE 20 MG/2 ML VIAL ONE; -LACTATED RINGER'S 1000 ML INJ 1,000 ML IV ONE; -LACTATED RINGER'S 1000 ML IV PRN; -MIDAZOLAM HCL 2 MG/2 ML VIAL IV ONE; +SODIUM CHLORIDE 0.9% FLUSH 10 ML FLUSH IV FLUSH PRN
[2017-05-28] MEDS: LACTATED RINGER'S 1000 ML IV PRN ×2 (05:57→08:20)
[2017-05-28 07:25] VITALS: TEMP 97.4
[2017-05-28 08:30] VITALS: BP 124/67; PULSE 92; RESP 16; O2SAT 94
--- NOTE | 2017-05-29 09:27 | MP ---
cc: ELIU FORBES M.D. Corrected: 06/05/17 DATE OF SURGERY 05/28/2017 DATE OF 1980 [facility] NUMBER [id number] PREOPERATIVE DIAGNOSIS Squamous cell carcinoma of the cervix. POSTOPERATIVE DIAGNOSIS Squamous cell carcinoma of the cervix. SURGEON Dr. Richie Forbes PROCEDURE Insertion of tandem and ovoids for radiation treatment under general anesthesia. BRIEF HISTORY This is a 36-year-old female found have a Stage II-B squamous cell carcinoma of her cervix. She was considered inoperable and received external beam radiation treatment with chemotherapy. She was brought to the operating room today for second of five planned brachytherapy procedures. PROCEDURE PERFORMED The patient was anesthetized and placed in lithotomy position and prepped and draped in routine fashion. A Broussard catheter was inserted to straight drainage. Her cervix was then visualized with hand-held speculums. The Fahad sleeve was in place as previously placed by Dr. Bearden. A tandem with a stop at 6 cm was then placed in the cervix and uterus. Two ovoids were then placed in the vaginal vault and the system was locked in place with a locking mechanism provided. A rectal shield was then placed in the rectum and locked in place. Premarin ointment-soaked vaginal packing was then used to stabilize the device and the procedure was completed. The patient will be transferred to Radiation after going through recovery where she will undergo CT treatment planning followed by dosimetry calculations and radiation treatment delivery. The devices will be removed in the radiation department and she is expected to be discharged home in good condition. MD MARNI England/BAO /4:16 PM /9:10 AM LAITH
== END | disposition home or self-care (01) ==
LOC: HSDC 05:05
PROVIDERS: ATTEND Radiology Radiation Oncology
DX: C53.9 Malignant neoplasm of cervix uteri, unspecified (principal)
CPT/HCPCS: 00940; 57155; J0131; J0690; J1100; J1170; J2250; J2405; J3010; J7120

== ENCOUNTER → 2017-06-05 | Day surgery (SDC) | payer OTHER, MEDICAID ==
[~2017-06-05] VITALS: Ht 165.1 cm; Wt 76.7 kg
[~2017-06-05] MED LIST changes: -*ONDANSETRON 4 MG VIAL PERIprocedural Use ONLY ONE; -ACETAMINOPHEN 1000 MG/100 ML 100 ML IV ONE; -CEPH-459 PO; +DEXAMETHASONE SOD PHOS 4 MG/ML VIAL IV ONE; -DEXAMETHASONE SOD PHOS 4 MG/ML VIAL ONE; -ESTROGENS CONJUGATED VAG CREA 15 APPL/30 GM TUBE ONE; +LIDOCAINE HCL 1% PF 5 ML AMPULE OTHER ONE; +MIDAZOLAM HCL 2 MG/2 ML VIAL IV ONE; -MIDAZOLAM HCL 2 MG/2 ML VIAL ONE
[2017-06-05] MEDS: LACTATED RINGER'S 1000 ML IV PRN ×2 (06:05→08:20)
[2017-06-05 07:18] VITALS: TEMP 97.7
[2017-06-05 08:30] VITALS: BP 110/66; PULSE 92; RESP 16; O2SAT 94
--- NOTE | 2017-06-06 12:07 | MR ---
cc: ELIU FORBES M.D. DATE: 06/05/2017 DATE OF : 1980 [facility]-[id number] PREOPERATIVE DIAGNOSIS Stage IIB squamous cell carcinoma of the cervix. POSTOPERATIVE DIAGNOSIS Stage IIB squamous cell carcinoma of the cervix. PROCEDURE 1. Removal of Fahad sleeve. 2. Examination under anesthesia. 3. Tandem and ovoid insertion for radiation treatment, brachytherapy of the cervix. DETAILS OF PROCEDURE This patient was anesthetized and placed in the lithotomy position, prepped and draped in the routine fashion. A Broussard catheter was inserted to maintain bladder drainage. Her cervix was visualized utilizing handheld forceps in both the anterior and posterior positions. The cervix with Fahad sleeve was easily visualized. The Fahad sleeve was held in place with three sutures. These sutures were removed and the Fahad sleeve was removed from the cervix. The cervix had no visible evidence of tumor; however, the cervix appeared very vascular and removing the sutures caused minimal but obvious bleeding. A tandem with stop at 6 cm was then placed in the cervix. Two ovoids were then placed in the vaginal vault and these three devices were locked in place with the locking mechanism provided. A rectal shield was then placed in position posteriorly and locked in place. Vaginal packing soaked with Premarin cream was then used to stabilize the device in the vagina and the procedure was terminated. From Recovery she will be transferred to radiation treatment where she will undergo dosimetric planning with CT study. She will then undergo radiation treatment and the devices will be removed in the radiation department. It is anticipated she will be discharged home in good condition. This is the 5th of 5 planned procedures and completes her entire radiation course. MD MARNI England/BRIANNA /8:05 AM /12:02 PM
== END | disposition home or self-care (01) ==
LOC: HSDC 05:09 → EDSTATUS 07:00
PROVIDERS: ATTEND Radiology Radiation Oncology
DX: C53.9 Malignant neoplasm of cervix uteri, unspecified (principal)
CPT/HCPCS: 00940; 57155; J0690; J1100; J1170; J2250; J2405; J3010; J7120